=== PATIENT | male | born 1970 | race Caucasian/White ===

== ENCOUNTER 2017-04-25 17:22 | Emergency (ER) | payer OTHER ==
[2017-04-25 17:55] VITALS: TEMP 98.7
[2017-04-25] MEDS ORDERED: methylPREDNISolone SOD SUCCI 125 MG/2 ML VIAL IV STA (18:10)
[2017-04-25] MEDS ORDERED: IPRATROPIUM-ALBUTEROL 3 ML NEB INHALATION STA ×2 (18:10→19:42)
[2017-04-25] MEDS ORDERED: SODIUM CHLORIDE 0.9% 1,000 ML IV STA (18:10)
--- NOTE | 2017-04-25 18:14 | ED ---
SOB HPI - General Chief Complaint: Shortness of Breath Stated Complaint: DANY/Hx COPD Time Seen by Provider: 04/25/17 17:50 Source: patient, RN notes reviewed Mode of arrival: ambulatory Limitations: no limitations - History of Present Illness Initial Comments: This is a 46-year-old male with a history of COPD who is still smoking about one pack of cigarettes per day who states he had the onset over last several days of cough and shortness of breath. He states his cough is dry. He states he also is had fevers for last 2 days. Is also chest tightness no other complaints or any other symptoms this time. He does have some home inhalers which have not been working well. MD Complaint: shortness of breath, cough - Related Data Home Medications Medication Instructions Recorded Confirmed Albuterol Inhaler [Ventolin Hfa 1 - 2 puff INHALATION RT-Q6H PRN 08/30/15 Inhaler] Ibuprofen [Motrin] 800 mg PO Q8H PRN 04/25/17 04/25/17 Mometasone Furoate [Asmanex] 2 puff INHALATION RT-DAILY 04/25/17 04/25/17 Previous Rx's Medication Instructions Recorded Ipratropium/Albuterol Sulfate 2 puff INHALATION QID #1 inhaler 04/25/17 [Combivent Respimat Inhaler] Magnesium 200 mg PO DAILY #14 tablet 04/25/17 predniSONE 20 mg PO BID #10 tab 04/25/17 Allergies Allergy/AdvReac Type Severity Reaction Status Date / Time No Known Allergies Allergy Verified 04/25/17 18:05 Review of Systems ROS Statement: Those systems with pertinent positive or pertinent negative responses have been documented in the HPI. ROS Other: All systems not noted in ROS Statement are negative. Past Medical History Past Medical History: COPD Additional Past Medical History / Comment(s): emphysema History of Any Multi-Drug Resistant Organisms: None Reported Past Surgical History: No Surgical Hx Reported Past Psychological History: No Psychological Hx Reported Smoking Status: Current every day smoker Past Alcohol Use History: Occasional Past Drug Use History: None Reported General Exam - General Exam Comments Initial Comments: This is a well-developed well-nourished awake alert oriented 3 male Limitations: no limitations General appearance: alert, in no apparent distress Head exam: Present: atraumatic, normocephalic, normal inspection Eye exam: Present: normal appearance, PERRL, EOMI. Absent: scleral icterus, conjunctival injection, periorbital swelling ENT exam: Present: normal exam, mucous membranes moist Neck exam: Present: normal inspection. Absent: tenderness, meningismus, lymphadenopathy Respiratory exam: Present: wheezes, decreased breath sounds, other (Diffuse wheezes). Absent: respiratory distress, rales, rhonchi, stridor Cardiovascular Exam: Present: regular rate, normal rhythm, normal heart sounds. Absent: systolic murmur, diastolic murmur, rubs, gallop, clicks GI/Abdominal exam: Present: soft, normal bowel sounds. Absent: distended, tenderness, guarding, rebound, rigid Extremities exam: Present: normal inspection, full ROM, normal capillary refill. Absent: tenderness, pedal edema, joint swelling, calf tenderness Back exam: Present: normal inspection Neurological exam: Present: alert, oriented X3, CN II-XII intact Psychiatric exam: Present: normal affect, normal mood Skin exam: Present: warm, dry, intact, normal color. Absent: rash Course Vital Signs 04/25/17 04/25/17 04/25/17 17:53 18:28 18:38 Temperature 98.7 F Pulse Rate 65 66 66 Respiratory 18 Rate Blood Pressure 162/102 O2 Sat by Pulse 99 Oximetry 04/25/17 04/25/17 04/25/17 19:26 20:02 20:14 Temperature Pulse Rate 65 72 74 Respiratory 20 Rate Blood Pressure 148/92 O2 Sat by Pulse 97 Oximetry Medical Decision Making - Medical Decision Making The patient is feeling much improved this time he'll be discharged on appropriate medications including magnesium supplementation he is follow-up with her doctor return when necessary we did discuss smoking cessation as well as alcohol cessation. - Lab Data Result diagrams: 04/25/17 19:18 04/25/17 19:18 Lab Results 04/25/17 04/25/17 04/25/17 Range/Units 19:18 19:18 19:18 WBC 7.7 (3.8-10.6) k/uL RBC 5.29 (4.30-5.90) m/uL Hgb 16.5 (13.0-17.5) gm/dL Hct 50.7 (39.0-53.0) % MCV 95.9 (80.0-100.0) fL MCH 31.1 (25.0-35.0) pg MCHC 32.4 (31.0-37.0) g/dL RDW 14.5 (11.5-15.5) % Plt Count 199 (150-450) k/uL Neutrophils % 62 % Lymphocytes % 22 % Monocytes % 10 % Eosinophils % 2 % Basophils % 2 % Neutrophils # 4.8 (1.3-7.7) k/uL Lymphocytes # 1.7 (1.0-4.8) k/uL Monocytes # 0.7 (0-1.0) k/uL Eosinophils # 0.1 (0-0.7) k/uL Basophils # 0.1 (0-0.2) k/uL PT (9.0-12.0) sec INR (<1.2) APTT (22.0-30.0) sec Sodium 139 (137-145) mmol/L Potassium 3.9 (3.5-5.1) mmol/L Chloride 104 (98-107) mmol/L Carbon Dioxide 24 (22-30) mmol/L Anion Gap 11 mmol/L BUN 4 L (9-20) mg/dL Creatinine 0.67 (0.66-1.25) mg/dL Est GFR (MDRD) Af Amer >60 (>60 ml/min/1.73 sqM) Est GFR (MDRD) Non-Af >60 (>60 ml/min/1.73 sqM) Glucose 84 (74-99) mg/dL Calcium 9.0 (8.4-10.2) mg/dL Magnesium 1.7 (1.6-2.3) mg/dL Total Bilirubin 1.8 H (0.2-1.3) mg/dL AST 130 H (17-59) U/L ALT 192 H (21-72) U/L Alkaline Phosphatase 87 (38-126) U/L Total Creatine Kinase 103 (55-170) U/L CK-MB (CK-2) 1.2 (0.0-2.4) ng/mL CK-MB (CK-2) Rel Index 1.2 Troponin I <0.012 (0.000-0.034) ng/mL NT-Pro-B Natriuret Pep pg/mL Total Protein 7.5 (6.3-8.2) g/dL Albumin 4.1 (3.5-5.0) g/dL 04/25/17 04/25/17 Range/Units 19:18 19:18 WBC (3.8-10.6) k/uL RBC (4.30-5.90) m/uL Hgb (13.0-17.5) gm/dL Hct (39.0-53.0) % MCV (80.0-100.0) fL MCH (25.0-35.0) pg MCHC (31.0-37.0) g/dL RDW (11.5-15.5) % Plt Count (150-450) k/uL Neutrophils % % Lymphocytes % % Monocytes % % Eosinophils % % Basophils % % Neutrophils # (1.3-7.7) k/uL Lymphocytes # (1.0-4.8) k/uL Monocytes # (0-1.0) k/uL Eosinophils # (0-0.7) k/uL Basophils # (0-0.2) k/uL PT 11.3 (9.0-12.0) sec INR 1.1 (<1.2) APTT 25.7 (22.0-30.0) sec Sodium (137-145) mmol/L Potassium (3.5-5.1) mmol/L Chloride (98-107) mmol/L Carbon Dioxide (22-30) mmol/L Anion Gap mmol/L BUN (9-20) mg/dL Creatinine (0.66-1.25) mg/dL Est GFR (MDRD) Af Amer (>60 ml/min/1.73 sqM) Est GFR (MDRD) Non-Af (>60 ml/min/1.73 sqM) Glucose (74-99) mg/dL Calcium (8.4-10.2) mg/dL Magnesium (1.6-2.3) mg/dL Total Bilirubin (0.2-1.3) mg/dL AST (17-59) U/L ALT (21-72) U/L Alkaline Phosphatase (38-126) U/L Total Creatine Kinase (55-170) U/L CK-MB (CK-2) (0.0-2.4) ng/mL CK-MB (CK-2) Rel Index Troponin I (0.000-0.034) ng/mL NT-Pro-B Natriuret Pep 153 pg/mL Total Protein (6.3-8.2) g/dL Albumin (3.5-5.0) g/dL - Radiology Data Radiology results: report reviewed (I did review the imaging and reports no acute findings.), image reviewed Disposition Clinical Impression: Acute exacerbation of chronic obstructive airways disease Disposition: HOME SELF-CARE Condition: Good Instructions: COPD (Chronic Obstructive Pulmonary Disease) (ED) Prescriptions: Ipratropium/Albuterol Sulfate [Combivent Respimat Inhaler] 2 puff INHALATION QID #1 inhaler Magnesium 200 mg PO DAILY #14 tablet predniSONE 20 mg PO BID #10 tab Referrals: None,Stated [Primary Care Provider] - 1-2 days
[2017-04-25 19:27] VITALS: BP 148/92
[2017-04-25 19:32] LABS: Basophils # (A) 0.1 k/uL (0-0.2); Basophils % (A) 2 %; CH 32.5; Eosinophils # (A) 0.1 k/uL (0-0.7); Eosinophils % (A) 2 %; HCT 50.7 % (39.0-53.0); HDW 2.25; HGB 16.5 gm/dL (13.0-17.5); Luc # (Auto) 0.23; Luc % (Auto) 3; Lymphocytes # (A) 1.7 k/uL (1.0-4.8); Lymphocytes % (A) 22 %; MCH 31.1 pg (25.0-35.0); MCHC 32.4 g/dL (31.0-37.0); MCV 95.9 fL (80.0-100.0); Mean Platelet Volume 8.4; Monocytes # (A) 0.7 k/uL (0-1.0); Monocytes % (A) 10 %; Neutrophils # (A) 4.8 k/uL (1.3-7.7); Neutrophils % (A) 62 %; RBC 5.29 m/uL (4.30-5.90); RDW 14.5 % (11.5-15.5); WBC 7.7 k/uL (3.8-10.6); WBC (Perox) 7.59
[2017-04-25 19:40] LABS: ALT 192 U/L (21-72); AST 130 U/L (17-59); Alkaline Phosphatase 87 U/L (38-126); Anion Gap 11 mmol/L; Blood Urea Nitrogen 4 mg/dL (9-20); Carbon Dioxide 24 mmol/L (22-30); Chloride 104 mmol/L (98-107); Glucose 84 mg/dL (74-99); Magnesium 1.7 mg/dL (1.6-2.3); Non-African American GFR(MDRD) >60 (>60 ml/min/1.73 sqM); Potassium 3.9 mmol/L (3.5-5.1); Sodium 139 mmol/L (137-145); Total Bilirubin 1.8 mg/dL (0.2-1.3); Total Protein 7.5 g/dL (6.3-8.2)
--- NOTE | 2017-04-25 19:42 | XR ---
EXAMINATION TYPE: XR chest 2V DATE OF EXAM: 04/25/2017 COMPARISON: 08/30/2015 HISTORY: Short of breath TECHNIQUE: Frontal and lateral views of the chest are obtained. FINDINGS: Heart and mediastinum are normal. Lungs are clear. Diaphragm is normal. Bony thorax is int act. IMPRESSION: Normal chest. No change.
[2017-04-25 19:50] LABS: Creatine Kinase 103 U/L (55-170)
[2017-04-25] MEDS ORDERED: MAGNESIUM SULFATE-D5W PMX 1 GM in DEXTROSE/WATER 1 100ML.BAG IVPB ONE (19:58)
[2017-04-25 20:03] LABS: Creatine Kinase MB 1.2 ng/mL (0.0-2.4); Troponin I <0.012 ng/mL (0.000-0.034)
[2017-04-25 20:14] LABS: INR 1.1 (<1.2); Partial Thromboplastin Time 25.7 sec (22.0-30.0); Prothrombin Time 11.3 sec (9.0-12.0)
[2017-04-25 21:10] VITALS: PULSE 68; RESP 16
== END 2017-04-25 21:10 | disposition home or self-care (01) ==
LOC: EC 17:22
DX: J44.1 Chronic obstructive pulmonary disease with (acute) exacerbation (principal); F17.200 Nicotine dependence, unspecified, uncomplicated; Z79.51 Long term (current) use of inhaled steroids
CPT/HCPCS: 36415; 94640 ×2; 83880; 80053; 82550; 82553; 83735; 84484; 85025; 85610; 85730; 71020; 99285; 96374; 96361 ×2; J2930

== ENCOUNTER 2018-03-15 10:32 | Emergency (ER) | payer OTHER ==
[2018-03-15] MEDS ORDERED: IPRATROPIUM 0.5 MG/2.5 ML NEBU INHALATION STA (10:51)
[2018-03-15] MEDS ORDERED: DEXAMETHASONE 4 MG TAB PO STA (10:51)
[2018-03-15] MEDS ORDERED: ALBUTEROL NEBULIZED 2.5 MG/3 ML INHALATION STA (10:51)
[2018-03-15] MEDS ORDERED: AZITHROMYCIN 500 MG TAB PO STA (10:55)
--- NOTE | 2018-03-15 10:57 | ED ---
General Adult HPI - General Chief complaint: Shortness of Breath Stated complaint: clovis Source: patient Mode of arrival: ambulatory Limitations: no limitations - History of Present Illness Initial comments: Dictation was produced using [email or web address] dictation software. please excuse any grammatical, word or spelling errors. Chief Complaint: 47-year-old disheveled male past medical history of COPD presents with increasing dyspnea History of Present Illness: A 47-year-old male who was recently let out of [facility]. States that he doesn't have a steady place to live. Patient has a past medical history of COPD. Since being released from [facility] he has not had a refill on his COPD medications. Patient continues to smoke. Patient denies any pain complaints. Denies any fevers. Patient states his shortness of breath has been increasing and he has been coughing more. Denies any sputum production. Denies any lower extremity symptoms. No history of blood clots. The ROS documented in this emergency department record has been reviewed and confirmed by me. Those systems with pertinent positive or negative responses have been documented in the HPI. All other systems are other negative and/or noncontributory. - Related Data Previous Rx's Medication Instructions Recorded Albuterol Inhaler [Ventolin Hfa 1 - 2 puff INHALATION RT-Q6H PRN 07/14/17 Inhaler] #1 inhaler Mometasone Furoate [Asmanex] 2 puff INHALATION RT-DAILY #1 07/14/17 [email or web address] Albuterol Inhaler [Ventolin Hfa 1 - 2 puff INHALATION RT-Q6H PRN 03/15/18 Inhaler] #1 inhaler Azithromycin [Zithromax] 250 mg PO DAILY 4 Days #4 tab 03/15/18 Dexamethasone [Decadron] 12 mg PO ONCE #3 tablet 03/15/18 Allergies Allergy/AdvReac Type Severity Reaction Status Date / Time No Known Allergies Allergy Verified 03/15/18 10:39 Review of Systems ROS Statement: Those systems with pertinent positive or pertinent negative responses have been documented in the HPI. ROS Other: All systems not noted in ROS Statement are negative. Past Medical History Past Medical History: COPD Additional Past Medical History / Comment(s): emphysema History of Any Multi-Drug Resistant Organisms: None Reported Past Surgical History: No Surgical Hx Reported Past Psychological History: No Psychological Hx Reported Smoking Status: Current every day smoker Past Alcohol Use History: Daily Past Drug Use History: None Reported General Exam - General Exam Comments Initial Comments: PHYSICAL EXAM: General Impression: Alert and oriented x3, not in acute distress HEENT: Normocephalic atraumatic, extra-ocular movements intact, pupils equal and reactive to light bilaterally, mucous membranes moist. Cardiovascular: Heart regular rate and rhythm, S1&S2 audible, no murmurs, rubs or gallops Chest: Diffuse bilateral end expiratory wheezing Abdomen: Bowel sounds present, abdomen soft, non-tender, non-distended, no organomegaly Musculoskeletal: Pulses present and equal in all extremities, no peripheral edema Motor: Power 5/5 bilaterally, no focal deficits noted Neurological: CN II-XII grossly intact, no focal motor or sensory deficits noted Skin: Intact with no visualized rashes Psych: Normal affect and mood Limitations: no limitations Course Vital Signs 03/15/18 03/15/18 03/15/18 10:36 11:17 11:46 Temperature 97.9 F Pulse Rate 102 H 92 106 H Respiratory 20 Rate Blood Pressure 134/80 O2 Sat by Pulse 94 L Oximetry Medical Decision Making - Medical Decision Making ED course: 47-year-old male with clinical presentation consistent with COPD exacerbation. All signs upon arrival shows heart rate of 102, respiratory signs within acceptable limits. Patient does not appear to be in severe respiratory distress. Patient given 500 mg of by mouth Zithromax and, by mouth Decadron and breathing treatment. Patient symptoms are mild. Patient reevaluated with improvement of symptoms. Do not believe patient's symptoms are severe enough to warrant inpatient admission or inpatient observation. Patient prescription for repeat dose of Decadron to be taken in 48-72 hours, Ventolin inhaler and Zithromax to complete 5 day course. He is given follow-up with primary care physician. Patient given return precautions should his difficulty breathing worsen or should he develop fever, chest pain to return to the emergency department for further care. Disposition Clinical Impression: COPD (chronic obstructive pulmonary disease) Disposition: HOME SELF-CARE Condition: Good Instructions: COPD (Chronic Obstructive Pulmonary Disease) (ED) Prescriptions: Albuterol Inhaler [Ventolin Hfa Inhaler] 1 - 2 puff INHALATION RT-Q6H PRN #1 inhaler PRN Reason: Shortness Of Breath Azithromycin [Zithromax] 250 mg PO DAILY 4 Days #4 tab Dexamethasone [Decadron] 12 mg PO ONCE #3 tablet Is patient prescribed a controlled substance at d/c from ED?: No Referrals: None,Stated [Primary Care Provider] - 1-2 days Zackery Campos MD [REFERRING] - 1-2 days Time of Disposition: 11:32
[2018-03-15 12:16] VITALS: BP 136/79; PULSE 104; RESP 18; TEMP 97.7
== END 2018-03-15 12:16 | disposition home or self-care (01) ==
LOC: EC 10:32
DX: J44.9 Chronic obstructive pulmonary disease, unspecified (principal); F17.200 Nicotine dependence, unspecified, uncomplicated
CPT/HCPCS: 94640; 99284; J8540

== ENCOUNTER 2018-03-26 11:49 | Emergency (ER) | payer OTHER ==
[2018-03-26 12:01] VITALS: BP 137/75; RESP 18; TEMP 98.3
[2018-03-26] MEDS ORDERED: IPRATROPIUM-ALBUTEROL 3 ML NEB INHALATION STA (12:04)
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
[2018-03-26 12:37] VITALS: PULSE 96
--- NOTE | 2018-03-26 12:39 | XR ---
EXAMINATION TYPE: XR chest 2V DATE OF EXAM: 03/26/2018 COMPARISON: Prior chest 04/25/2017 HISTORY: Cough and shortness of breath TECHNIQUE: Frontal and lateral views of the chest are obtained. FINDINGS: There is no focal air space opacity, pleural effusion, or pneumothorax seen. The cardiac silhouette size is within normal limits. The osseous structures are intact. There are prominent kayla g volumes. Blunting the costophrenic angles likely due to hyperinflation. There is bronchial wall thi ckening. IMPRESSION: Correlate for bronchitis, reactive airways disease. Follow-up as indicated.
[2018-03-26] MEDS ORDERED: predniSONE 20 MG TAB PO STA (12:44)
== END 2018-03-26 12:57 | disposition home or self-care (01) ==
LOC: EC 11:49
DX: J44.9 Chronic obstructive pulmonary disease, unspecified (principal); F17.200 Nicotine dependence, unspecified, uncomplicated; Z79.51 Long term (current) use of inhaled steroids
CPT/HCPCS: 94640; 71046; 99285; 99406; J7512

== ENCOUNTER 2018-04-02 21:19 | Inpatient (IN) | payer OTHER ==
[2018-04-02] MEDS ORDERED: AZITHROMYCIN 500 MG in SODIUM CHLORIDE 0.9% 250 ML IVPB STA (21:29)
[2018-04-02] MEDS ORDERED: SODIUM CHLORIDE 0.9% 1,000 ML IV STA (21:29)
[2018-04-02] MEDS ORDERED: IPRATROPIUM 0.5 MG/2.5 ML NEBU INHALATION STA (21:29)
[2018-04-02] MEDS ORDERED: methylPREDNISolone SOD SUCCI 125 MG/2 ML VIAL IV STA (21:29)
[2018-04-02] MEDS ORDERED: SODIUM CHLORIDE 0.9% 500 ML IV STA (21:29)
[2018-04-02] MEDS ORDERED: ALBUTEROL NEBULIZED 2.5 MG/3 ML INHALATION STA (21:29)
[2018-04-02 22:09] LABS: Basophils % (A) 0 %; Eosinophils # (A) 0.1 k/uL (0-0.7); Eosinophils % (A) 1 %; HCT 43.1 % (39.0-53.0); HGB 14.1 gm/dL (13.0-17.5); Lymphocytes # (A) 1.6 k/uL (1.0-4.8); Lymphocytes % (A) 13 %; MCH 30.7 pg (25.0-35.0); MCHC 32.7 g/dL (31.0-37.0); MCV 93.9 fL (80.0-100.0); Mean Platelet Volume 7.8; Monocytes # (A) 0.9 k/uL (0-1.0); Monocytes % (A) 7 %; Neutrophils # (A) 9.6 k/uL (1.3-7.7); Neutrophils % (A) 77 %; Platelet Count 256 k/uL (150-450); RBC 4.59 m/uL (4.30-5.90); WBC 12.5 k/uL (3.8-10.6)
[2018-04-02 22:13] LABS: Partial Thromboplastin Time 24.9 sec (22.0-30.0); Prothrombin Time 9.6 sec (9.0-12.0)
[2018-04-02 22:15] LABS: ALT 78 U/L (21-72); AST 65 U/L (17-59); Albumin 3.7 g/dL (3.5-5.0); Alkaline Phosphatase 92 U/L (38-126); Anion Gap 11 mmol/L; Blood Urea Nitrogen 10 mg/dL (9-20); Carbon Dioxide 28 mmol/L (22-30); Chloride 96 mmol/L (98-107); Glucose 72 mg/dL (74-99); Magnesium 2.1 mg/dL (1.6-2.3); Potassium 4.1 mmol/L (3.5-5.1); Sodium 135 mmol/L (137-145); Total Bilirubin 1.4 mg/dL (0.2-1.3)
[2018-04-02 22:17] LABS: Creatine Kinase 80 U/L (55-170)
[2018-04-02 22:30] LABS: Troponin I <0.012 ng/mL (0.000-0.034)
[2018-04-02 22:34] LABS: Creatine Kinase MB 2.9 ng/mL (0.0-2.4)
--- NOTE | 2018-04-02 22:38 | ED ---
General Adult HPI - General Chief complaint: Shortness of Breath Stated complaint: SOB/congestion Time Seen by Provider: 04/02/18 21:28 Source: patient, RN notes reviewed, old records reviewed Mode of arrival: wheelchair Limitations: no limitations - History of Present Illness Initial comments: This is a 47-year-old male the ER for evaluation today. This male presents for evaluation regards to shortness of breath significant history of smoking. Asthma as a child. Patient has no diagnosis formally of COPD is continued breathing treatments, inhaler at home with no improvement. Patient was seen in the ER but is progressively worsened since. Patient not currently on antibiotics. No known fevers no chest pain, does complain of some back pain back pain left-sided his back - Related Data Home Medications Medication Instructions Recorded Confirmed Albuterol Sulfate [Proair Hfa] 2 puff INHALATION RT-Q4H PRN 04/02/18 04/02/18 Allergies Allergy/AdvReac Type Severity Reaction Status Date / Time No Known Allergies Allergy Verified 04/02/18 21:59 Review of Systems ROS Statement: Those systems with pertinent positive or pertinent negative responses have been documented in the HPI. ROS Other: All systems not noted in ROS Statement are negative. Past Medical History Past Medical History: COPD Additional Past Medical History / Comment(s): emphysema History of Any Multi-Drug Resistant Organisms: None Reported Past Surgical History: No Surgical Hx Reported Past Psychological History: No Psychological Hx Reported Smoking Status: Current every day smoker Past Alcohol Use History: Abuse Past Drug Use History: None Reported General Exam Limitations: no limitations General appearance: alert, in no apparent distress Head exam: Present: atraumatic, normocephalic, normal inspection Eye exam: Present: normal appearance, PERRL, EOMI. Absent: scleral icterus, conjunctival injection, periorbital swelling ENT exam: Present: normal exam, mucous membranes moist Neck exam: Present: normal inspection. Absent: tenderness, meningismus, lymphadenopathy Respiratory exam: Present: normal lung sounds bilaterally, wheezes. Absent: respiratory distress, rales, rhonchi, stridor Cardiovascular Exam: Present: normal rhythm, tachycardia, normal heart sounds. Absent: systolic murmur, diastolic murmur, rubs, gallop, clicks GI/Abdominal exam: Present: soft, normal bowel sounds. Absent: distended, tenderness, guarding, rebound, rigid Extremities exam: Present: normal inspection, full ROM, normal capillary refill. Absent: tenderness, pedal edema, joint swelling, calf tenderness Back exam: Present: normal inspection Neurological exam: Present: alert, oriented X3, CN II-XII intact Psychiatric exam: Present: normal affect, normal mood Skin exam: Present: warm, dry, intact, normal color. Absent: rash Course Vital Signs 04/02/18 04/02/18 04/02/18 21:21 21:52 22:15 Temperature 98.5 F Pulse Rate 114 H 104 H Respiratory 20 20 Rate Blood Pressure 165/76 O2 Sat by Pulse 94 L Oximetry 04/02/18 22:30 Temperature Pulse Rate 110 H Respiratory Rate Blood Pressure O2 Sat by Pulse Oximetry - Reevaluation(s) Reevaluation #1: 04/02/18 23:40 Patient isn't not improving despite outpatient therapy. Reevaluation #2: 04/02/18 23:40 Patient has minimal improvement here in the ER despite prolonged breathing treatment EKG Findings - EKG Comments: EKG Findings:: EKG shows sinus rhythm rate of 97, [place] 1:30, QRS 74, QTC 452 Medical Decision Making - Medical Decision Making 47 male the ER for evaluation of cough congestion significant shortness of breath hypoxia. Patient be admitted for pulmonary evaluation continue breathing treatments and steroids - Lab Data Result diagrams: 04/02/18 21:50 04/02/18 21:50 Lab Results 04/02/18 04/02/18 04/02/18 Range/Units 21:50 21:50 21:50 WBC 12.5 H (3.8-10.6) k/uL RBC 4.59 (4.30-5.90) m/uL Hgb 14.1 (13.0-17.5) gm/dL Hct 43.1 (39.0-53.0) % MCV 93.9 (80.0-100.0) fL MCH 30.7 (25.0-35.0) pg MCHC 32.7 (31.0-37.0) g/dL RDW 13.0 (11.5-15.5) % Plt Count 256 (150-450) k/uL Neutrophils % 77 % Lymphocytes % 13 % Monocytes % 7 % Eosinophils % 1 % Basophils % 0 % Neutrophils # 9.6 H (1.3-7.7) k/uL Lymphocytes # 1.6 (1.0-4.8) k/uL Monocytes # 0.9 (0-1.0) k/uL Eosinophils # 0.1 (0-0.7) k/uL Basophils # 0.0 (0-0.2) k/uL PT (9.0-12.0) sec INR (<1.2) APTT (22.0-30.0) sec Sodium 135 L (137-145) mmol/L Potassium 4.1 (3.5-5.1) mmol/L Chloride 96 L (98-107) mmol/L Carbon Dioxide 28 (22-30) mmol/L Anion Gap 11 mmol/L BUN 10 (9-20) mg/dL Creatinine 0.54 L (0.66-1.25) mg/dL Est GFR (CKD-EPI)AfAm >90 (>60 ml/min/1.73 sqM) Est GFR (CKD-EPI)NonAf >90 (>60 ml/min/1.73 sqM) Glucose 72 L (74-99) mg/dL Calcium 9.0 (8.4-10.2) mg/dL Magnesium 2.1 (1.6-2.3) mg/dL Total Bilirubin 1.4 H (0.2-1.3) mg/dL AST 65 H (17-59) U/L ALT 78 H (21-72) U/L Alkaline Phosphatase 92 (38-126) U/L Total Creatine Kinase 80 (55-170) U/L CK-MB (CK-2) 2.9 H* (0.0-2.4) ng/mL CK-MB (CK-2) Rel Index 3.6 Troponin I <0.012 (0.000-0.034) ng/mL Total Protein 7.0 (6.3-8.2) g/dL Albumin 3.7 (3.5-5.0) g/dL 04/02/18 Range/Units 21:50 WBC (3.8-10.6) k/uL RBC (4.30-5.90) m/uL Hgb (13.0-17.5) gm/dL Hct (39.0-53.0) % MCV (80.0-100.0) fL MCH (25.0-35.0) pg MCHC (31.0-37.0) g/dL RDW (11.5-15.5) % Plt Count (150-450) k/uL Neutrophils % % Lymphocytes % % Monocytes % % Eosinophils % % Basophils % % Neutrophils # (1.3-7.7) k/uL Lymphocytes # (1.0-4.8) k/uL Monocytes # (0-1.0) k/uL Eosinophils # (0-0.7) k/uL Basophils # (0-0.2) k/uL PT 9.6 (9.0-12.0) sec INR 1.0 (<1.2) APTT 24.9 (22.0-30.0) sec Sodium (137-145) mmol/L Potassium (3.5-5.1) mmol/L Chloride (98-107) mmol/L Carbon Dioxide (22-30) mmol/L Anion Gap mmol/L BUN (9-20) mg/dL Creatinine (0.66-1.25) mg/dL Est GFR (CKD-EPI)AfAm (>60 ml/min/1.73 sqM) Est GFR (CKD-EPI)NonAf (>60 ml/min/1.73 sqM) Glucose (74-99) mg/dL Calcium (8.4-10.2) mg/dL Magnesium (1.6-2.3) mg/dL Total Bilirubin (0.2-1.3) mg/dL AST (17-59) U/L ALT (21-72) U/L Alkaline Phosphatase (38-126) U/L Total Creatine Kinase (55-170) U/L CK-MB (CK-2) (0.0-2.4) ng/mL CK-MB (CK-2) Rel Index Troponin I (0.000-0.034) ng/mL Total Protein (6.3-8.2) g/dL Albumin (3.5-5.0) g/dL - Radiology Data Radiology results: report reviewed (CTA chest is negative for acute disease negative for PE), image reviewed Disposition Clinical Impression: COPD (chronic obstructive pulmonary disease), Acute exacerbation of chronic obstructive airways disease Disposition: ADMITTED IP TO THIS HOSP Condition: Good Is patient prescribed a controlled substance at d/c from ED?: No Referrals: Zackery Campos MD [Primary Care Provider] - 1-2 days
--- NOTE | 2018-04-02 23:16 | CT ---
EXAMINATION TYPE: CT angio chest DATE OF EXAM: 04/02/2018 10:52 PM COMPARISON: HISTORY: Shortness of breath. CT DLP: 258.8 mGycm Automated exposure control for dose reduction was used. CONTRAST: CTA scan of the thorax is performed with IV Contrast, patient injected with 70 mL of Isovue 370, pulm onary embolism protocol. There are 3-D post processed images.. FINDINGS: There is patchy bilateral reticular and nodular pulmonary infiltrate. This involves both upper and lo wer lobes. There is no pleural effusion. Heart size is normal. Thoracic aorta appears normal. There is no evidence of aneurysm or dissection. I see no filling defec ts in the pulmonary arteries. There are a few bronchial and paratracheal lymph nodes that measure up to 1 cm. There is no pericardial effusion. There is spurring in the thoracic spine. I see no bony destructive process. Impression No evidence of pulmonary embolism. Extensive bilateral reticular nodular pulmonary infiltrates. Nodul es measure up to 2 cm. Mild bronchial adenopathy. This probably relates to inflammatory disease.
[2018-04-03] MEDS: SODIUM CHLORIDE 0.9% 1,000 ML IV SCH ×2 (00:23→10:47)
[2018-04-03] MEDS: methylPREDNISolone SOD SUCCI 125 MG/2 ML VIAL IV SCH ×3 (00:25→13:06)
[2018-04-03] MEDS: IPRATROPIUM-ALBUTEROL 3 ML NEB INHALATION SCH ×4 (07:02→20:05)
[2018-04-03 07:56] LABS: Glucose,Whole Blood 162 mg/dL (75-99)
[2018-04-03] MEDS: INSULIN ASPART 100 UNIT/ML 1 ML 10 ML VIAL SQ SCH ×4 (08:05→21:04)
[2018-04-03] MEDS: ENOXAPARIN 40 MG/0.4 ML SYRINGE SQ SCH (10:02)
[2018-04-03] MEDS: NICOTINE 21MG/24HR PATCH TRANSDERM SCH (10:02)
[2018-04-03 11:40] LABS: Glucose,Whole Blood 204 mg/dL (75-99)
--- NOTE | 2018-04-03 14:06 | P.HPIM ---
History of Present Illness 47-year-old gentleman with known history of smoking came in with complains of shortness of breath cough with greenish sputum production. Patient was started on my Solu-Medrol and was given a dose of azithromycin. Patient does not have any lobar infiltrate does have some diffuse nonspecific infiltrate without any air bronchogram has some nodules to about 2 cm because of which I'm consulted thing that pulmonary. Patient steroids will be switched to oral continued breathing treatments patient has some improvement in his shortness of breath patient doesn't use any oxygen at home. Review of Systems PHYSICAL EXAMINATION: GENERAL: The patient is alert and oriented x3, not in any acute distress. Well developed, well nourished. HEENT: Pupils are round and equally reacting to light. EOMI. No scleral icterus. No conjunctival pallor. Normocephalic, atraumatic. No pharyngeal erythema. No thyromegaly. CARDIOVASCULAR: S1 and S2 present. No murmurs, rubs, or gallops. PULMONARY: Expiratory wheezing rhonchus breath sounds ABDOMEN: Soft, nontender, nondistended, normoactive bowel sounds. No palpable organomegaly. MUSCULOSKELETAL: No joint swelling or deformity. EXTREMITIES: No cyanosis, clubbing, or pedal edema. NEUROLOGICAL: Gross neurological examination did not reveal any focal deficits. SKIN: No rashes. Past Medical History Past Medical History: COPD Additional Past Medical History / Comment(s): emphysema History of Any Multi-Drug Resistant Organisms: None Reported Past Surgical History: No Surgical Hx Reported Past Psychological History: No Psychological Hx Reported Smoking Status: Current every day smoker Past Alcohol Use History: Abuse Past Drug Use History: None Reported Medications and Allergies Home Medications Medication Instructions Recorded Confirmed Type Albuterol Sulfate [Proair Hfa] 2 puff INHALATION RT-Q4H PRN 04/02/18 04/02/18 History Allergies Allergy/AdvReac Type Severity Reaction Status Date / Time No Known Allergies Allergy Verified 04/02/18 21:59 Physical Exam Vitals: Vital Signs Temp Pulse Pulse Resp BP BP Pulse Ox 04/03/18 10:52 60 04/03/18 10:39 60 04/03/18 07:13 58 L 04/03/18 07:02 55 L 98 04/03/18 06:41 98.1 F 97 18 141/83 95 04/03/18 00:01 95 18 145/80 94 L 04/02/18 22:30 110 H 04/02/18 22:15 20 04/02/18 21:52 104 H 04/02/18 21:21 98.5 F 114 H 20 165/76 94 L Intake and Output 04/02/18 04/03/18 04/03/18 22:59 06:59 14:59 Other: # Voids 2 Weight 81.647 kg 81.647 kg Results CBC & Chem 7: 04/02/18 21:50 04/02/18 21:50 Labs: Abnormal Lab Results - Last 24 Hours (Table) 04/02/18 04/02/18 04/02/18 Range/Units 21:50 21:50 21:50 WBC 12.5 H (3.8-10.6) k/uL Neutrophils # 9.6 H (1.3-7.7) k/uL Sodium 135 L (137-145) mmol/L Chloride 96 L (98-107) mmol/L Creatinine 0.54 L (0.66-1.25) mg/dL Glucose 72 L (74-99) mg/dL POC Glucose (mg/dL) (75-99) mg/dL Total Bilirubin 1.4 H (0.2-1.3) mg/dL AST 65 H (17-59) U/L ALT 78 H (21-72) U/L CK-MB (CK-2) 2.9 H* (0.0-2.4) ng/mL 04/03/18 04/03/18 Range/Units 07:41 11:35 WBC (3.8-10.6) k/uL Neutrophils # (1.3-7.7) k/uL Sodium (137-145) mmol/L Chloride (98-107) mmol/L Creatinine (0.66-1.25) mg/dL Glucose (74-99) mg/dL POC Glucose (mg/dL) 162 H 204 H (75-99) mg/dL Total Bilirubin (0.2-1.3) mg/dL AST (17-59) U/L ALT (21-72) U/L CK-MB (CK-2) (0.0-2.4) ng/mL Thrombosis Risk Factor Assmnt - Choose All That Apply Any of the Below Risk Factors Present?: Yes Each Factor Represents 1 point: Age 41-60 years, Obesity (BMI >25) Thrombosis Risk Factor Assessment Total Risk Factor Score: 2 Thrombosis Risk Factor Assessment Level: Low Risk Assessment and Plan Plan: -COPD with tracheobronchitis patient does have COPD exacerbation patient was steroids will be switched to oral infiltrate continue with inhalational steroids inhalational treatments. -2 cm pulmonary nodule was smoking history pulmonary will be consulted, patient will need outpatient follow-up with repeat CAT scan. -Continued nicotine use: Counseling was provided
[2018-04-03 17:36] LABS: Glucose,Whole Blood 134 mg/dL (75-99)
[2018-04-03] MEDS: SYMBICORT 160-4.5 MCG INHALER INHALATION SCH ×2 (18:38→20:05)
[2018-04-03 19:19] LABS: Hemoglobin A1C 5.8 % (4.0-6.0)
[2018-04-03 20:54] LABS: Glucose,Whole Blood 166 mg/dL (75-99)
[2018-04-03] MEDS ORDERED: AZITHROMYCIN 500 MG TAB PO SCH (21:00)
[2018-04-04] MEDS: IPRATROPIUM-ALBUTEROL 3 ML NEB INHALATION SCH ×4 (07:01→19:25)
[2018-04-04] MEDS: SYMBICORT 160-4.5 MCG INHALER INHALATION SCH (07:01)
[2018-04-04 07:42] LABS: Glucose,Whole Blood 104 mg/dL (75-99)
[2018-04-04] MEDS: INSULIN ASPART 100 UNIT/ML 1 ML 10 ML VIAL SQ SCH ×4 (07:50→21:29)
[2018-04-04] MEDS: NICOTINE 21MG/24HR PATCH TRANSDERM SCH (08:58)
[2018-04-04] MEDS: ENOXAPARIN 40 MG/0.4 ML SYRINGE SQ SCH (08:59)
[2018-04-04] MEDS ORDERED: predniSONE 20 MG TAB PO SCH (09:00)
[2018-04-04 12:11] LABS: Glucose,Whole Blood 122 mg/dL (75-99)
[2018-04-04] MEDS ORDERED: cefTRIAXone IN SWFI 1,000 MG/10 ML SYRINGE IVP SCH (13:30)
[2018-04-04] MEDS: methylPREDNISolone SOD SUCCI 125 MG/2 ML VIAL IV SCH ×2 (13:45→17:53)
[2018-04-04] MEDS: PIPERACILLIN-TAZOBACTAM 3.375 GM in DEXTROSE/WATER 1 50ML.BAG IVPB SCH (16:57)
--- NOTE | 2018-04-04 17:17 | P.CNPUL ---
History of Present Illness Consult date: 04/04/18 Requesting physician: Deandra Ellington Reason for consult: dyspnea, cough, COPD, pneumonia, abnormal CXR/CT, other Chief complaint: Shortness of breath, weakness, wheezing, chest congestion History of present illness: Jamal is a 47-year-old white male patient of Dr. Campos, who presented to the emergency department on 04/02/2018 at 2200 for evaluation of progressive weakness, shortness of breath, chest congestion, wheezing. Patient states about a week ago he was seen in the emergency department for complaints of cough , shortness of breath, fever, chills. His cough was productive with green sputum. Patient is a current smoker, smokes 1 to 2 packs a day for over 35 years. Patient states he was given a prescription of antibiotics and the rescue inhaler, however after reviewing ER records, it is evident the patient was given oral steroids and Pro-Air inhaler, was referred to see Dr. Christensen and Dr. Nunes in the office, and discharged home. Patient is currently homeless, he states he is been sleeping in the [facility]. He was recently incarcerated for credit card fraud, and released sometime in January. Has a history of other incarcerations for drug charges and peripheral violations. He states he had a PPD test in skilled nursing, which was negative, and he was checked for HIV there and the test was reportedly negative. He does admit to daily EtOH use, he drinks 4-5 24 ounce cans of beer daily, denies any other drug use, no marijuana, no cocaine, no injectable drugs. Does admit to previous use of meth. Patient has never seen a business process specialist in the past. He did have previous episodes of pneumonia, for which she was hospitalized, and was supposed to be seen by a placement assistant, however she never followed up related to his lack of insurance. No other significant medical history, no history of hypertension, no diabetes, no NH. Patient states he does have history of COPD, not on any medications for it. He denies any hemoptysis. He states after he took his prescriptions patient did not get any better, a progressively weaker and short of breath. His initial chest x-ray from 03/26/2018 from his first visit to the ER showed no focal airspace opacity , pleural effusion or pneumothorax. Prominent lung volumes were seen, blunting of the costophrenic angles likely due to hyperinflation, and bronchial wall thickening. CT angios was completed on his second trip to the ER on 04/02/2018 and showed no evidence of pulmonary embolism, extensive bilateral reticular nodular pulmonary infiltrates, and nodules measuring up to 2 cm, mild bronchial adenopathy. Blood work showed WBC of 12.5, hemoglobin of 14.1, INR of 1.0, sodium of 135, chloride is 96, BUN of 10, creatinine 0.54. Plasma lactic acid was 1.5, total bili was 1.4, AST was 65, ALT was 78, CK-MB was 2.9, troponin was negative 1. EKG showed normal sinus rhythm, minimal voltage criteria for LVH. Patient was started on empiric antibiotics in the form of Zithromax, bronchodilators, and admitted for further management. We are asked to see the patient in consultation for abnormal findings seen on the CT angios, most likely related to diffuse bilateral nodular infiltrates related to pneumonia. Possibility of endocarditis has to be ruled out, an echocardiogram has been ordered. Review of Systems All systems: negative Constitutional: Denies chills, Denies fever Eyes: denies blurred vision, denies pain Ears, nose, mouth and throat: Denies headache, Denies sore throat Cardiovascular: Denies chest pain, Denies shortness of breath Respiratory: Reports congestion, Reports cough with sputum, Reports dyspnea, Reports respiratory infections, Reports wheezing, Denies cough Gastrointestinal: Denies abdominal pain, Denies diarrhea, Denies nausea, Denies vomiting Musculoskeletal: Denies myalgias Integumentary: Denies pruritus, Denies rash Neurological: Denies numbness, Denies weakness Psychiatric: Denies anxiety, Denies depression Endocrine: Denies fatigue, Denies weight change Past Medical History Past Medical History: COPD Additional Past Medical History / Comment(s): emphysema History of Any Multi-Drug Resistant Organisms: None Reported Past Surgical History: No Surgical Hx Reported Past Psychological History: No Psychological Hx Reported Smoking Status: Current every day smoker Past Alcohol Use History: Abuse Past Drug Use History: None Reported Medications and Allergies Home Medications Medication Instructions Recorded Confirmed Type Albuterol Sulfate [Proair Hfa] 2 puff INHALATION RT-Q4H PRN 04/02/18 04/02/18 History Allergies Allergy/AdvReac Type Severity Reaction Status Date / Time No Known Allergies Allergy Verified 04/02/18 21:59 Physical Exam Vitals: Vital Signs Temp Pulse Pulse Resp BP Pulse Ox 04/04/18 15:43 86 04/04/18 15:34 84 04/04/18 15:00 98.0 F 76 18 137/95 95 04/04/18 11:13 80 04/04/18 11:04 80 04/04/18 07:13 84 04/04/18 07:02 77 95 04/04/18 06:49 98.0 F 83 18 132/90 98 04/03/18 23:00 97.6 F 79 16 124/89 98 04/03/18 20:15 82 04/03/18 20:06 78 Intake and Output 04/04/18 04/04/18 04/04/18 06:59 14:59 22:59 Intake Total 320 Output Total 350 Balance -30 Intake: Oral 320 Output: Urine 350 Other: Voiding Method Toilet # Voids 3 3 # Bowel Movements 0 1 GENERAL EXAM: Alert, pleasant, 47-year-old white male, appears much older than stated age comfortable in no apparent distress. HEAD: Normocephalic/atraumatic. EYES: Normal reaction of pupils, equal size. Conjunctiva pink, sclera white. NOSE: Clear with pink turbinates. THROAT: No erythema or exudates. NECK: No masses, no JVD, no thyroid enlargement, no adenopathy. CHEST: No chest wall deformity. Symmetrical expansion. LUNGS: Diffuse wheezes bilaterally, scattered rhonchi CVS: Regular rate and rhythm, normal S1 and S2, no gallops, no murmurs, no rubs ABDOMEN: Soft, nontender. No hepatosplenomegaly, normal bowel sounds, no guarding or rigidity. EXTREMITIES: No clubbing, no edema, no cyanosis, 2+ pulses and upper and lower extremities. MUSCULOSKELETAL: Muscle strength and tone normal. SPINE: No scoliosis or deformity SKIN: No rashes CENTRAL NERVOUS SYSTEM: Alert and oriented -3. No focal deficits, tone is normal in all 4 extremities. PSYCHIATRIC: Alert and oriented -3. Appropriate affect. Intact judgment and insight. Results - Laboratory Findings CBC and BMP: 04/02/18 21:50 04/02/18 21:50 PT/INR, D-dimer PT 9.6 sec (9.0-12.0) 04/02/18 21:50 INR 1.0 (<1.2) 04/02/18 21:50 Abnormal lab findings: Abnormal Labs 04/02/18 04/02/18 04/02/18 21:50 21:50 21:50 WBC 12.5 H Neutrophils # 9.6 H Sodium 135 L Chloride 96 L Creatinine 0.54 L Glucose 72 L POC Glucose (mg/dL) Total Bilirubin 1.4 H AST 65 H ALT 78 H CK-MB (CK-2) 2.9 H* 04/03/18 04/03/18 04/03/18 07:41 11:35 17:31 WBC Neutrophils # Sodium Chloride Creatinine Glucose POC Glucose (mg/dL) 162 H 204 H 134 H Total Bilirubin AST ALT CK-MB (CK-2) 04/03/18 04/04/18 04/04/18 20:50 07:18 12:09 WBC Neutrophils # Sodium Chloride Creatinine Glucose POC Glucose (mg/dL) 166 H 104 H 122 H Total Bilirubin AST ALT CK-MB (CK-2) - Diagnostic Findings Chest x-ray: report reviewed, image reviewed CT scan - chest: report reviewed, image reviewed Additional studies: EKG reviewed Assessment and Plan Plan: Assessment: #1. Dyspnea, chest congestion, fever, weakness. CT angios positive for diffuse nodular infiltrates in bilateral lungs, likely related to bilateral pneumonia. Possibility of endocarditis has to be ruled out, echocardiogram has been ordered. There is a possibility of gram-negative pneumonia versus aspiration pneumonia, in this patient with history of heavy alcohol use #2. Acute exacerbation of chronic obstructive pulmonary disease related to the above, the severity of which is unknown at this time #3. Chronic and ongoing nicotine dependence, patient smokes one to 2 packs a day for over 35 years #4. Previous episodes of pneumonia #5. Recent history of incarceration, released sometime in January 2018. According to the patient, as per the routine procedure PPD test and HIV tests were completed in skilled nursing, and were both negative #6. EtOH abuse, patient drinks 4-5 ounce cans of beer daily #7. Homelessness #8. Mild elevation of liver enzymes Plan: We will obtain an echocardiogram to rule out endocarditis. We will switch antibiotic coverage from Zithromax and Rocephin to Zosyn and Levaquin for possibility of aspiration pneumonia, or gram-negative pneumonia. Monitor for signs of delirium tremens. We'll switch oral prednisone to IV Solu-Medrol 60 mg every 6, we'll place the patient on Pulmicort and Perforomist, continue DuoNeb [id number]. Nicotine patch. Obtain Legionella urinary antigen, completed drug screen. Consult social work I performed a history & physical examination of the patient and discussed their management with my nurse practitioner, Larissa Cortez. I reviewed the nurse practitioner's note and agree with the documented findings and plan of care. Lung sounds are positive for diffuse wheezes throughout the lung murry. The findings and the impression was discussed with the patient. I attest to the documentation by the nurse practitioner. Time with Patient: Greater than 30
[2018-04-04 17:27] LABS: Glucose,Whole Blood 134 mg/dL (75-99)
[2018-04-04] MEDS: BUDESONIDE 1 MG/2 ML NEBU INHALATION SCH (19:25)
[2018-04-04] MEDS: FORMOTEROL FUMARATE 20 MCG/2 ML NEBU INHALATION SCH (19:25)
[2018-04-04] MEDS: LEVOFLOXACIN 750MG-D5W PMX 750 MG in DEXTROSE/WATER 1 150ML.BAG IVPB SCH (20:42)
[2018-04-04 21:21] LABS: Glucose,Whole Blood 261 mg/dL (75-99)
[2018-04-04 23:10] LABS: Glucose,Whole Blood 155 mg/dL (75-99)
[2018-04-05] MEDS: methylPREDNISolone SOD SUCCI 125 MG/2 ML VIAL IV SCH ×4 (00:03→18:26)
[2018-04-05] MEDS: PIPERACILLIN-TAZOBACTAM 3.375 GM in DEXTROSE/WATER 1 50ML.BAG IVPB SCH ×3 (00:03→15:40)
[2018-04-05 02:54] LABS: Urine Alcohol Negative (Negative); Urine Barbiturate Negative (Negative); Urine Cocaine Negative (Negative); Urine Methadone Negative (Negative); Urine Opiates Negative (Negative); Urine Phencyclidine Negative (Negative)
[2018-04-05 07:19] LABS: Glucose,Whole Blood 168 mg/dL (75-99)
[2018-04-05] MEDS: ENOXAPARIN 40 MG/0.4 ML SYRINGE SQ SCH (08:02)
[2018-04-05] MEDS: INSULIN ASPART 100 UNIT/ML 1 ML 10 ML VIAL SQ SCH ×4 (08:03→22:16)
[2018-04-05] MEDS: BUDESONIDE 1 MG/2 ML NEBU INHALATION SCH ×2 (08:22→19:37)
[2018-04-05] MEDS: IPRATROPIUM-ALBUTEROL 3 ML NEB INHALATION SCH ×4 (08:22→19:37)
[2018-04-05] MEDS: FORMOTEROL FUMARATE 20 MCG/2 ML NEBU INHALATION SCH ×2 (08:22→19:37)
[2018-04-05 08:31] LABS: Anion Gap 12 mmol/L; Blood Urea Nitrogen 11 mg/dL (9-20); Carbon Dioxide 23 mmol/L (22-30); Chloride 104 mmol/L (98-107); Glucose 213 mg/dL (74-99); Potassium 4.3 mmol/L (3.5-5.1); Sodium 139 mmol/L (137-145)
[2018-04-05 11:32] LABS: Glucose,Whole Blood 134 mg/dL (75-99)
[2018-04-05 11:58] LABS: Basophils % (A) 0 %; Eosinophils % (A) 0 %; HCT 43.8 % (39.0-53.0); HGB 13.6 gm/dL (13.0-17.5); Lymphocytes # (A) 0.5 k/uL (1.0-4.8); Lymphocytes % (A) 4 %; MCH 30.4 pg (25.0-35.0); MCV 98.3 fL (80.0-100.0); Mean Platelet Volume 8.4; Monocytes # (A) 0.4 k/uL (0-1.0); Monocytes % (A) 3 %; Neutrophils # (A) 11.8 k/uL (1.3-7.7); Neutrophils % (A) 92 %; Platelet Count 286 k/uL (150-450); RBC 4.46 m/uL (4.30-5.90); WBC 12.8 k/uL (3.8-10.6)
--- NOTE | 2018-04-05 13:04 | P.PN ---
Subjective Progress Note Date: 04/05/18 Principal diagnosis: Diffuse bilateral infiltrates, related to bilateral pneumonia, acute exacerbation of COPD Jamal is a 47-year-old white male patient of Dr. Campos, who presented to the emergency department on 04/02/2018 at 2200 for evaluation of progressive weakness, shortness of breath, chest congestion, wheezing. Patient states about a week ago he was seen in the emergency department for complaints of cough , shortness of breath, fever, chills. His cough was productive with green sputum. Patient is a current smoker, smokes 1 to 2 packs a day for over 35 years. Patient states he was given a prescription of antibiotics and the rescue inhaler, however after reviewing ER records, it is evident the patient was given oral steroids and Pro-Air inhaler, was referred to see Dr. Christensen and Dr. Nunes in the office, and discharged home. Patient is currently homeless, he states he is been sleeping in the [facility]. He was recently incarcerated for credit card fraud, and released sometime in January. Has a history of other incarcerations for drug charges and peripheral violations. He states he had a PPD test in skilled nursing, which was negative, and he was checked for HIV there and the test was reportedly negative. He does admit to daily EtOH use, he drinks 4-5 24 ounce cans of beer daily, denies any other drug use, no marijuana, no cocaine, no injectable drugs. Does admit to previous use of meth. Patient has never seen a criminal intelligence specialist in the past. He did have previous episodes of pneumonia, for which she was hospitalized, and was supposed to be seen by a stores clerk, however she never followed up related to his lack of insurance. No other significant medical history, no history of hypertension, no diabetes, no CT. Patient states he does have history of COPD, not on any medications for it. He denies any hemoptysis. He states after he took his prescriptions patient did not get any better, a progressively weaker and short of breath. His initial chest x-ray from 03/26/2018 from his first visit to the ER showed no focal airspace opacity , pleural effusion or pneumothorax. Prominent lung volumes were seen, blunting of the costophrenic angles likely due to hyperinflation, and bronchial wall thickening. CT angios was completed on his second trip to the ER on 04/02/2018 and showed no evidence of pulmonary embolism, extensive bilateral reticular nodular pulmonary infiltrates, and nodules measuring up to 2 cm, mild bronchial adenopathy. Blood work showed WBC of 12.5, hemoglobin of 14.1, INR of 1.0, sodium of 135, chloride is 96, BUN of 10, creatinine 0.54. Plasma lactic acid was 1.5, total bili was 1.4, AST was 65, ALT was 78, CK-MB was 2.9, troponin was negative 1. EKG showed normal sinus rhythm, minimal voltage criteria for LVH. Patient was started on empiric antibiotics in the form of Zithromax, bronchodilators, and admitted for further management. We are asked to see the patient in consultation for abnormal findings seen on the CT angios, most likely related to diffuse bilateral nodular infiltrates related to pneumonia. Possibility of endocarditis has to be ruled out, an echocardiogram has been ordered. On 04 05 2018 patient seen in follow-up on medical surgical floor. He states his breathing is easier today, lung sounds are positive for diffuse wheezes, seems to have improved from yesterday. No fever, no chills, no sweats. Pulse ox on 2 L per nasal cannula is 99%, patient is afebrile, not bringing up much sputum, blood culture showed no growth at the 48 hour doug, sputum culture is pending. Yesterday we place the patient on combination of Zosyn and Levaquin for possibility of aspiration pneumonia or gram-negative pneumonia. Urine drug screen was negative, Legionella urine antigen is still pending. Patient continues on IV steroids, nebulized bronchodilators, he is improving. Yesterday were ordered echocardiogram to rule out a possibility of endocarditis , awaiting the results. Objective - Vital Signs Vital signs: Vital Signs Temp 96.5 F L 04/05/18 05:55 Pulse 64 04/05/18 11:53 Resp 16 04/05/18 05:55 BP 150/94 04/05/18 05:55 Pulse Ox 99 04/05/18 05:55 Intake & Output 04/04/18 04/05/18 04/05/18 18:59 06:59 18:59 Intake Total 370 320 Output Total 350 Balance 20 320 Intake: Intake, IV Titration 50 Amount Piperacillin-Tazobactam 3 50 .375 gm In Dextrose/Water 1 50ml.bag @ 12.5 mls/hr IVPB Q8HR [facility] Rx#: [id number] Oral 320 320 Output: Urine 350 Other: Voiding Method Toilet Toilet # Voids 3 2 # Bowel Movements 1 - Exam GENERAL EXAM: Alert, pleasant, 47-year-old white male, appears much older than stated age comfortable in no apparent distress. HEAD: Normocephalic/atraumatic. EYES: Normal reaction of pupils, equal size. Conjunctiva pink, sclera white. NOSE: Clear with pink turbinates. THROAT: No erythema or exudates. NECK: No masses, no JVD, no thyroid enlargement, no adenopathy. CHEST: No chest wall deformity. Symmetrical expansion. LUNGS: Diffuse wheezes bilaterally CVS: Regular rate and rhythm, normal S1 and S2, no gallops, no murmurs, no rubs ABDOMEN: Soft, nontender. No hepatosplenomegaly, normal bowel sounds, no guarding or rigidity. EXTREMITIES: No clubbing, no edema, no cyanosis, 2+ pulses and upper and lower extremities. MUSCULOSKELETAL: Muscle strength and tone normal. SPINE: No scoliosis or deformity SKIN: No rashes CENTRAL NERVOUS SYSTEM: Alert and oriented -3. No focal deficits, tone is normal in all 4 extremities. PSYCHIATRIC: Alert and oriented -3. Appropriate affect. Intact judgment and insight. - Labs CBC & Chem 7: 04/05/18 07:41 04/05/18 07:41 Labs: Abnormal Lab Results - Last 24 Hours (Table) 04/04/18 04/04/18 04/04/18 Range/Units 17:13 21:19 23:09 WBC (3.8-10.6) k/uL Neutrophils # (1.3-7.7) k/uL Lymphocytes # (1.0-4.8) k/uL Creatinine (0.66-1.25) mg/dL Glucose (74-99) mg/dL POC Glucose (mg/dL) 134 H 261 H 155 H (75-99) mg/dL 04/05/18 04/05/18 04/05/18 Range/Units 07:07 07:41 07:41 WBC 12.8 H (3.8-10.6) k/uL Neutrophils # 11.8 H (1.3-7.7) k/uL Lymphocytes # 0.5 L (1.0-4.8) k/uL Creatinine 0.54 L (0.66-1.25) mg/dL Glucose 213 H (74-99) mg/dL POC Glucose (mg/dL) 168 H (75-99) mg/dL 04/05/18 Range/Units 11:31 WBC (3.8-10.6) k/uL Neutrophils # (1.3-7.7) k/uL Lymphocytes # (1.0-4.8) k/uL Creatinine (0.66-1.25) mg/dL Glucose (74-99) mg/dL POC Glucose (mg/dL) 134 H (75-99) mg/dL Microbiology - Last 24 Hours (Table) 04/04/18 19:30 Gram Stain - Preliminary Sputum 04/02/18 21:50 Blood Culture - Preliminary Blood No Growth after 48 hours Assessment and Plan Plan: Assessment: #1. Dyspnea, chest congestion, fever, weakness. CT angios positive for diffuse nodular infiltrates in bilateral lungs, likely related to bilateral pneumonia. Possibility of endocarditis has to be ruled out, echocardiogram has been ordered. There is a possibility of gram-negative pneumonia versus aspiration pneumonia, in this patient with history of heavy alcohol use #2. Acute exacerbation of chronic obstructive pulmonary disease related to the above, the severity of which is unknown at this time #3. Chronic and ongoing nicotine dependence, patient smokes one to 2 packs a day for over 35 years #4. Previous episodes of pneumonia #5. Recent history of incarceration, released sometime in January 2018. According to the patient, as per the routine procedure PPD test and HIV tests were completed in skilled nursing, and were both negative #6. EtOH abuse, patient drinks 4-5 ounce cans of beer daily #7. Homelessness #8. Mild elevation of liver enzymes Plan: Continue current antibiotic coverage, continue IV Solu-Medrol, continue nebulas bronchodilators. Patient is feeling better today, sputum culture is pending, patient is afebrile, still remains bronchospastic, but seems to have improved from yesterday's exam. Awaiting the results of the echocardiogram. I performed a history & physical examination of the patient and discussed their management with my nurse practitioner, Larissa Cortez. I reviewed the nurse practitioner's note and agree with the documented findings and plan of care. Lung sounds are positive for diffuse wheezes throughout the lung murry. The findings and the impression was discussed with the patient. I attest to the documentation by the nurse practitioner. Time with Patient: Less than 30
[2018-04-05] MEDS: NICOTINE 21MG/24HR PATCH TRANSDERM SCH (13:05)
--- NOTE | 2018-04-05 13:22 | P.PN ---
Subjective Progress Note Date: 04/04/18 Progress note being dictated for Dr. Mcfarland. Interval history:47-year-old gentleman with known history of smoking came in with complains of shortness of breath cough with greenish sputum production. Patient was started on my Solu-Medrol and was given a dose of azithromycin. Patient does not have any lobar infiltrate does have some diffuse nonspecific infiltrate without any air bronchogram has some nodules to about 2 cm because of which I'm consulted thing that pulmonary. Patient steroids will be switched to oral continued breathing treatments patient has some improvement in his shortness of breath patient doesn't use any oxygen at home. Review of Systems PHYSICAL EXAMINATION: GENERAL: The patient is alert and oriented x3, not in any acute distress. Well developed, well nourished. HEENT: Pupils are round and equally reacting to light. EOMI. No scleral icterus. No conjunctival pallor. Normocephalic, atraumatic. No pharyngeal erythema. No thyromegaly. CARDIOVASCULAR: S1 and S2 present. No murmurs, rubs, or gallops. PULMONARY: Expiratory wheezing rhonchus breath sounds ABDOMEN: Soft, nontender, nondistended, normoactive bowel sounds. No palpable organomegaly. MUSCULOSKELETAL: No joint swelling or deformity. EXTREMITIES: No cyanosis, clubbing, or pedal edema. NEUROLOGICAL: Gross neurological examination did not reveal any focal deficits. SKIN: No rashes. 04/04/2018 maintained on nebulized bronchodilators, systemic steroids, antibiotics. Wheezing persists. Reports productive cough with green sputum. Evaluated by pulmonary with recommendations noted. Possible endocarditis, echo ordered. Drug screen negative. Objective - Vital Signs Vital signs: Vital Signs Temp 98.0 F 04/04/18 15:00 Pulse 76 04/04/18 18:32 Resp 18 04/04/18 18:32 BP 137/95 04/04/18 15:00 Pulse Ox 95 04/04/18 15:00 Intake & Output 04/04/18 04/04/18 04/05/18 06:59 18:59 06:59 Intake Total 370 Output Total 350 Balance 20 Intake: Intake, IV Titration 50 Amount Piperacillin-Tazobactam 3 50 .375 gm In Dextrose/Water 1 50ml.bag @ 12.5 mls/hr IVPB Q8HR [facility], [facility]–1983 Rx#: [id number] Oral 320 Output: Urine 350 Other: Voiding Method Toilet # Voids 3 3 # Bowel Movements 0 1 - Exam GENERAL: The patient is sitting up in bed, alert and oriented x3, no acute distress. HEENT: Pupils are round and equally reacting to light. EOMI. No scleral icterus. No conjunctival pallor. Normocephalic, atraumatic. CARDIOVASCULAR: S1 and S2 present. No murmurs, rubs, or gallops. PULMONARY: Scattered rhonchi throughout with Expiratory wheezing ABDOMEN: Soft, nontender, nondistended, normoactive bowel sounds. No palpable organomegaly. MUSCULOSKELETAL: No joint swelling or deformity. EXTREMITIES: No cyanosis, clubbing, or pedal edema. NEUROLOGICAL: Gross neurological examination did not reveal any focal deficits. SKIN: No rashes. - Labs CBC & Chem 7: 04/05/18 07:41 04/05/18 07:41 Labs: Abnormal Lab Results - Last 24 Hours (Table) 04/03/18 04/04/18 04/04/18 Range/Units 20:50 07:18 12:09 POC Glucose (mg/dL) 166 H 104 H 122 H (75-99) mg/dL 04/04/18 Range/Units 17:13 POC Glucose (mg/dL) 134 H (75-99) mg/dL Microbiology - Last 24 Hours (Table) 04/02/18 21:50 Blood Culture - Preliminary Blood No Growth after 24 hours Assessment and Plan Assessment: -Acute COPD exacerbation with tracheobronchitis. -Possible gram-negative pneumonia, possible aspiration pneumonia. -Possible endocarditis, echo pending. -2 cm pulmonary nodule was smoking history pulmonary will be consulted, patient will need outpatient follow-up with repeat CAT scan. -Ongoing alcohol and nicotine abuse, history of meth abuse. -Mildly elevated LFTs. Plan: Continue on current medication regime ,monitoring and symptomatic treatment. Maintain nebulized bronchodilators, systemic steroids, antibiotics. Smoking and alcohol cessation readdressed. Aggressive pulmonary toileting. Increase ambulation as tolerated. Sputum ,Legionella cultures ordered. Echo pending. Recent incarceration, reports negative HIV, PPD tests in penitentiary. Hepatitis panel ordered. The impression and plan of care has been dictated as directed. : I performed a history and examination of this patient, discussed the same with the dictator. I agree with the dictator's note ,documented as a scribe. Any additional findings or plans will be noted.
--- NOTE | 2018-04-05 13:32 | P.PN ---
Subjective Progress Note Date: 04/05/18 Progress note being dictated for Dr. Mcfarland. Interval history:47-year-old gentleman with known history of smoking came in with complains of shortness of breath cough with greenish sputum production. Patient was started on my Solu-Medrol and was given a dose of azithromycin. Patient does not have any lobar infiltrate does have some diffuse nonspecific infiltrate without any air bronchogram has some nodules to about 2 cm because of which I'm consulted thing that pulmonary. Patient steroids will be switched to oral continued breathing treatments patient has some improvement in his shortness of breath patient doesn't use any oxygen at home. Review of Systems PHYSICAL EXAMINATION: GENERAL: The patient is alert and oriented x3, not in any acute distress. Well developed, well nourished. HEENT: Pupils are round and equally reacting to light. EOMI. No scleral icterus. No conjunctival pallor. Normocephalic, atraumatic. No pharyngeal erythema. No thyromegaly. CARDIOVASCULAR: S1 and S2 present. No murmurs, rubs, or gallops. PULMONARY: Expiratory wheezing rhonchus breath sounds ABDOMEN: Soft, nontender, nondistended, normoactive bowel sounds. No palpable organomegaly. MUSCULOSKELETAL: No joint swelling or deformity. EXTREMITIES: No cyanosis, clubbing, or pedal edema. NEUROLOGICAL: Gross neurological examination did not reveal any focal deficits. SKIN: No rashes. 04/04/2018 maintained on nebulized bronchodilators, systemic steroids, antibiotics. Wheezing persists. Reports productive cough with green sputum. Evaluated by pulmonary with recommendations noted. Possible endocarditis, echo ordered. Drug screen negative. 04/05/2018 breathing improving, maintaining O2 sats of high 90s on 2 L nasal cannula. Reports nonproductive cough. Afebrile, sputum culture pending, preliminary blood cultures no growth at 48 hours. Legionella and echo pending. Objective - Vital Signs Vital signs: Vital Signs Temp 96.5 F L 04/05/18 05:55 Pulse 64 04/05/18 11:53 Resp 16 04/05/18 05:55 BP 150/94 04/05/18 05:55 Pulse Ox 99 04/05/18 05:55 Intake & Output 04/04/18 04/05/18 04/05/18 18:59 06:59 18:59 Intake Total 370 320 Output Total 350 Balance 20 320 Intake: Intake, IV Titration 50 Amount Piperacillin-Tazobactam 3 50 .375 gm In Dextrose/Water 1 50ml.bag @ 12.5 mls/hr IVPB Q8HR [facility] Rx#: [id number] Oral 320 320 Output: Urine 350 Other: Voiding Method Toilet Toilet # Voids 3 2 # Bowel Movements 1 - Exam GENERAL: The patient is sitting up in bed, alert and oriented x3, no acute distress. HEENT: Pupils are round and equally reacting to light. EOMI. No scleral icterus. No conjunctival pallor. Normocephalic, atraumatic. CARDIOVASCULAR: S1 and S2 present. No murmurs, rubs, or gallops. PULMONARY: Diminished with improving scattered Expiratory wheezing ABDOMEN: Soft, nontender, nondistended, normoactive bowel sounds. No palpable organomegaly. MUSCULOSKELETAL: No joint swelling or deformity. EXTREMITIES: No cyanosis, clubbing, or pedal edema. NEUROLOGICAL: Gross neurological examination did not reveal any focal deficits. SKIN: No rashes. - Labs CBC & Chem 7: 04/05/18 07:41 04/05/18 07:41 Labs: Abnormal Lab Results - Last 24 Hours (Table) 04/04/18 04/04/18 04/04/18 Range/Units 17:13 21:19 23:09 WBC (3.8-10.6) k/uL Neutrophils # (1.3-7.7) k/uL Lymphocytes # (1.0-4.8) k/uL Creatinine (0.66-1.25) mg/dL Glucose (74-99) mg/dL POC Glucose (mg/dL) 134 H 261 H 155 H (75-99) mg/dL 04/05/18 04/05/18 04/05/18 Range/Units 07:07 07:41 07:41 WBC 12.8 H (3.8-10.6) k/uL Neutrophils # 11.8 H (1.3-7.7) k/uL Lymphocytes # 0.5 L (1.0-4.8) k/uL Creatinine 0.54 L (0.66-1.25) mg/dL Glucose 213 H (74-99) mg/dL POC Glucose (mg/dL) 168 H (75-99) mg/dL 04/05/18 Range/Units 11:31 WBC (3.8-10.6) k/uL Neutrophils # (1.3-7.7) k/uL Lymphocytes # (1.0-4.8) k/uL Creatinine (0.66-1.25) mg/dL Glucose (74-99) mg/dL POC Glucose (mg/dL) 134 H (75-99) mg/dL Microbiology - Last 24 Hours (Table) 04/04/18 19:30 Gram Stain - Preliminary Sputum 04/02/18 21:50 Blood Culture - Preliminary Blood No Growth after 48 hours Assessment and Plan Assessment: -Acute COPD exacerbation with tracheobronchitis. -Possible gram-negative pneumonia, possible aspiration pneumonia. -Possible endocarditis, echo pending. -2 cm pulmonary nodule was smoking history pulmonary will be consulted, patient will need outpatient follow-up with repeat CAT scan. -Ongoing alcohol and nicotine abuse, history of meth abuse. -Mildly elevated LFTs. Plan: Continue on current medication regime ,monitoring and symptomatic treatment. Continue nebulized bronchodilators, systemic steroids, antibiotics. Aggressive pulmonary toileting. Increase ambulation as tolerated. Echo, Sputum ,Legionella , hepatitis cultures pending. The impression and plan of care has been dictated as directed. : I performed a history and examination of this patient, discussed the same with the dictator. I agree with the dictator's note ,documented as a scribe. Any additional findings or plans will be noted.
[2018-04-05 17:05] LABS: Glucose,Whole Blood 290 mg/dL (75-99)
[2018-04-05] MEDS ORDERED: INSULIN ASPART 100 UNIT/ML 1 ML 10 ML VIAL SQ ONE (17:19)
[2018-04-05 19:30] LABS: Hepatitis A Antibody IgM Non-Reactive (Non-Reactive); Hepatitis B Core IgM Non-Reactive (Non-Reactive)
[2018-04-05 21:32] LABS: Glucose,Whole Blood 140 mg/dL (75-99)
[2018-04-05] MEDS: LEVOFLOXACIN 750MG-D5W PMX 750 MG in DEXTROSE/WATER 1 150ML.BAG IVPB SCH (22:15)
[2018-04-06] MEDS: PIPERACILLIN-TAZOBACTAM 3.375 GM in DEXTROSE/WATER 1 50ML.BAG IVPB SCH ×3 (00:50→14:54)
[2018-04-06] MEDS: methylPREDNISolone SOD SUCCI 125 MG/2 ML VIAL IV SCH ×3 (00:51→12:17)
[2018-04-06 07:30] LABS: Glucose,Whole Blood 129 mg/dL (75-99)
[2018-04-06] MEDS: INSULIN ASPART 100 UNIT/ML 1 ML 10 ML VIAL SQ SCH ×4 (07:30→22:40)
[2018-04-06] MEDS: ENOXAPARIN 40 MG/0.4 ML SYRINGE SQ SCH (07:31)
[2018-04-06] MEDS: NICOTINE 21MG/24HR PATCH TRANSDERM SCH (07:31)
[2018-04-06] MEDS: FORMOTEROL FUMARATE 20 MCG/2 ML NEBU INHALATION SCH ×2 (07:51→20:07)
[2018-04-06] MEDS: IPRATROPIUM-ALBUTEROL 3 ML NEB INHALATION SCH ×4 (07:51→19:49)
[2018-04-06] MEDS: BUDESONIDE 1 MG/2 ML NEBU INHALATION SCH ×2 (07:51→19:49)
[2018-04-06] MEDS: THIAMINE 100 MG TAB PO SCH (12:18)
[2018-04-06] MEDS: FOLIC ACID 1 MG TAB PO SCH (12:18)
[2018-04-06] MEDS: MULTIVITAMINS, THERA 1 EACH TAB PO SCH (12:18)
[2018-04-06 12:29] LABS: Glucose,Whole Blood 167 mg/dL (75-99)
--- NOTE | 2018-04-06 13:39 | P.PN ---
Subjective Progress Note Date: 04/06/18 Principal diagnosis: Acute exacerbation of chronic obstructive pulmonary disease complicated by bilateral pneumonia Jamal is a 47-year-old white male patient of Dr. Campos, who presented to the emergency department on 04/02/2018 at 2200 for evaluation of progressive weakness, shortness of breath, chest congestion, wheezing. Patient states about a week ago he was seen in the emergency department for complaints of cough , shortness of breath, fever, chills. His cough was productive with green sputum. Patient is a current smoker, smokes 1 to 2 packs a day for over 35 years. Patient states he was given a prescription of antibiotics and the rescue inhaler, however after reviewing ER records, it is evident the patient was given oral steroids and Pro-Air inhaler, was referred to see Dr. Christensen and Dr. Nunes in the office, and discharged home. Patient is currently homeless, he states he is been sleeping in the [facility]. He was recently incarcerated for credit card fraud, and released sometime in January. Has a history of other incarcerations for drug charges and peripheral violations. He states he had a PPD test in prison, which was negative, and he was checked for HIV there and the test was reportedly negative. He does admit to daily EtOH use, he drinks 4-5 24 ounce cans of beer daily, denies any other drug use, no marijuana, no cocaine, no injectable drugs. Does admit to previous use of meth. Patient has never seen a compound specialist in the past. He did have previous episodes of pneumonia, for which she was hospitalized, and was supposed to be seen by a kardex clerk, however she never followed up related to his lack of insurance. No other significant medical history, no history of hypertension, no diabetes, no CT. Patient states he does have history of COPD, not on any medications for it. He denies any hemoptysis. He states after he took his prescriptions patient did not get any better, a progressively weaker and short of breath. His initial chest x-ray from 03/26/2018 from his first visit to the ER showed no focal airspace opacity , pleural effusion or pneumothorax. Prominent lung volumes were seen, blunting of the costophrenic angles likely due to hyperinflation, and bronchial wall thickening. CT angios was completed on his second trip to the ER on 04/02/2018 and showed no evidence of pulmonary embolism, extensive bilateral reticular nodular pulmonary infiltrates, and nodules measuring up to 2 cm, mild bronchial adenopathy. Blood work showed WBC of 12.5, hemoglobin of 14.1, INR of 1.0, sodium of 135, chloride is 96, BUN of 10, creatinine 0.54. Plasma lactic acid was 1.5, total bili was 1.4, AST was 65, ALT was 78, CK-MB was 2.9, troponin was negative 1. EKG showed normal sinus rhythm, minimal voltage criteria for LVH. Patient was started on empiric antibiotics in the form of Zithromax, bronchodilators, and admitted for further management. We are asked to see the patient in consultation for abnormal findings seen on the CT angios, most likely related to diffuse bilateral nodular infiltrates related to pneumonia. Possibility of endocarditis has to be ruled out, an echocardiogram has been ordered. On 04 05 2018 patient seen in follow-up on medical surgical floor. He states his breathing is easier today, lung sounds are positive for diffuse wheezes, seems to have improved from yesterday. No fever, no chills, no sweats. Pulse ox on 2 L per nasal cannula is 99%, patient is afebrile, not bringing up much sputum, blood culture showed no growth at the 48 hour doug, sputum culture is pending. Yesterday we place the patient on combination of Zosyn and Levaquin for possibility of aspiration pneumonia or gram-negative pneumonia. Urine drug screen was negative, Legionella urine antigen is still pending. Patient continues on IV steroids, nebulized bronchodilators, he is improving. Yesterday were ordered echocardiogram to rule out a possibility of endocarditis , awaiting the results. Patient seen again today 04/06/2018 in follow-up on the regular medical floor. He is awake and alert in no acute distress. Currently resting comfortably in bed. He states he is breathing easier today as compared to yesterday but still not quite back to his baseline. Still dyspneic on minimal exertion. Still bronchus spastic and wheezing. Maintaining good O2 saturations in the 90s on 2 L/m per nasal cannula. Blood and sputum cultures reveal no growth to date. Objective - Vital Signs Vital signs: Vital Signs Temp 97.1 F L 04/06/18 06:29 Pulse 72 04/06/18 11:27 Resp 20 04/06/18 06:29 BP 135/80 04/06/18 06:29 Pulse Ox 95 04/06/18 06:29 Intake & Output 04/05/18 04/06/18 04/06/18 18:59 06:59 18:59 Intake Total 570 500 Output Total 350 Balance 570 500 -350 Weight 81.647 kg Intake: Intake, IV Titration 50 Amount Piperacillin-Tazobactam 3 50 .375 gm In Dextrose/Water 1 50ml.bag @ 12.5 mls/hr IVPB Q8HR [facility] Rx#: [id number] Oral 520 500 Output: Urine 350 Other: Voiding Method Toilet Toilet # Voids 1 1 # Bowel Movements 0 0 - Exam GENERAL EXAM: Alert, pleasant, 47-year-old white male, appears much older than stated age comfortable in no apparent distress. HEAD: Normocephalic/atraumatic. EYES: Normal reaction of pupils, equal size. Conjunctiva pink, sclera white. NOSE: Clear with pink turbinates. THROAT: No erythema or exudates. NECK: No masses, no JVD, no thyroid enlargement, no adenopathy. CHEST: No chest wall deformity. Symmetrical expansion. LUNGS: Diffuse wheezes bilaterally CVS: Regular rate and rhythm, normal S1 and S2, no gallops, no murmurs, no rubs ABDOMEN: Soft, nontender. No hepatosplenomegaly, normal bowel sounds, no guarding or rigidity. EXTREMITIES: No clubbing, no edema, no cyanosis, 2+ pulses and upper and lower extremities. MUSCULOSKELETAL: Muscle strength and tone normal. SPINE: No scoliosis or deformity SKIN: No rashes CENTRAL NERVOUS SYSTEM: Alert and oriented -3. No focal deficits, tone is normal in all 4 extremities. PSYCHIATRIC: Alert and oriented -3. Appropriate affect. Intact judgment and insight. - Labs CBC & Chem 7: 04/05/18 07:41 04/05/18 07:41 Labs: Abnormal Lab Results - Last 24 Hours (Table) 04/05/18 04/05/18 04/05/18 Range/Units 07:41 17:01 21:15 POC Glucose (mg/dL) 290 H 140 H (75-99) mg/dL Hep C IgG Ab Reactive H (Non-Reactive) 04/06/18 04/06/18 Range/Units 07:13 12:27 POC Glucose (mg/dL) 129 H 167 H (75-99) mg/dL Hep C IgG Ab (Non-Reactive) Microbiology - Last 24 Hours (Table) 04/04/18 19:30 Gram Stain - Preliminary Sputum Sputum Culture - Preliminary 04/02/18 21:50 Blood Culture - Preliminary Blood No Growth after 72 hours Assessment and Plan Assessment: Assessment: #1. Dyspnea, chest congestion, fever, weakness. CT angios positive for diffuse nodular infiltrates in bilateral lungs, likely related to bilateral pneumonia. Possibility of endocarditis has to be ruled out, echocardiogram has been ordered. There is a possibility of gram-negative pneumonia versus aspiration pneumonia, in this patient with history of heavy alcohol use #2. Acute exacerbation of chronic obstructive pulmonary disease related to the above, the severity of which is unknown at this time #3. Chronic and ongoing nicotine dependence, patient smokes one to 2 packs a day for over 35 years #4. Previous episodes of pneumonia #5. Recent history of incarceration, released sometime in January 2018. According to the patient, as per the routine procedure PPD test and HIV tests were completed in prison, and were both negative #6. EtOH abuse, patient drinks 4-5 ounce cans of beer daily #7. Homelessness #8. Mild elevation of liver enzymes Plan: The patient was seen and evaluated by Dr. Nunes. He is improved today as compared to yesterday but still not back to his baseline. We'll continue with the current treatment plan including DuoNeb inhalations, Pulmicort and Perforomist inhalations, IV Solu-Medrol and antibiotics in the form of Zosyn and Levaquin. He is again educated regarding the importance of complete smoking cessation. Habitrol patches in place. DVT prophylaxis. We will increase his activity as tolerated. We'll continue to follow make further recommendations based on his clinical status. I, the cosigning physician, performed a history & physical examination of the patient. Lungs sounds with bilateral wheeze and a few scattered rhonchi. Maintaining good O2 saturations in the 90s on 2 L/m per nasal cannula. I discussed the assessment and plan of care with my nurse practitioner, Demi Vaca. I attest to the above note as dictated by her.
[2018-04-06] MEDS ORDERED: TEMAZEPAM 15 MG CAP PO PRN (15:09)
[2018-04-06] MEDS: methylPREDNISolone SOD SUCCI 40 MG/ML 1 ML VIAL IV SCH (16:00)
[2018-04-06 17:17] LABS: Glucose,Whole Blood 161 mg/dL (75-99)
[2018-04-06 20:51] LABS: Glucose,Whole Blood 152 mg/dL (75-99)
--- NOTE | 2018-04-06 21:20 | PN ---
PROGRESS NOTE DATE OF SERVICE: 04/06/2018 This 47-year-old gentleman who was admitted with COPD acute exacerbation, on IV steroids. No chest pain. No palpitations. No fever. PHYSICAL EXAM: Alert and oriented x3. Pulse 72, blood pressure 138/80, respiration 20, temperature 97.1, pulse ox 94% on room air. HEENT: Conjunctivae normal. Oral mucosa moist. Neck is no jugular venous distention. No carotid bruit. No lymph node enlargement. CARDIOVASCULAR: S1, S2. RESPIRATORY: Breath sounds diminished in the bases. a few scattered rhonchi and crackles. ABDOMEN: Soft, nontender. No mass palpable. LEGS: No edema. NERVOUS SYSTEM: No focal deficits. LABS: WBC 2.8, hemoglobin 13.6. ASSESSMENT: 1. Chronic obstructive pulmonary disease exacerbation with acute purulent tracheobronchitis. 2. Possible gram-negative pneumonia, possible aspiration pneumonia. 3. Possible endocarditis. Echo is pending. 4. 2 cm pulmonary nodule with smoking history. 5. Ongoing alcohol, nicotine dependence. 6. Elevated LFTs. RECOMMENDATIONS AND DISCUSSION: I recommend to continue current management, continue monitoring and symptomatic treatment. At this time recommend continue broad spectrum IV antibiotics, bronchodilators, several DVT prophylaxis. We will continue the current medications, continue symptomatic treatment. Otherwise, increase ambulation. Smoking cessation advised. Prognosis guarded because of multiple complex medical issues and further recommendations to follow. MMODL / IJN: [id number] /
[2018-04-06] MEDS: LEVOFLOXACIN 750MG-D5W PMX 750 MG in DEXTROSE/WATER 1 150ML.BAG IVPB SCH (22:40)
[2018-04-07] MEDS: methylPREDNISolone SOD SUCCI 40 MG/ML 1 ML VIAL IV SCH ×3 (00:39→15:52)
[2018-04-07] MEDS: PIPERACILLIN-TAZOBACTAM 3.375 GM in DEXTROSE/WATER 1 50ML.BAG IVPB SCH ×3 (00:40→15:52)
[2018-04-07] MEDS: INSULIN ASPART 100 UNIT/ML 1 ML 10 ML VIAL SQ SCH ×4 (07:37→20:32)
[2018-04-07 07:38] LABS: Glucose,Whole Blood 124 mg/dL (75-99)
[2018-04-07] MEDS: ENOXAPARIN 40 MG/0.4 ML SYRINGE SQ SCH (07:47)
[2018-04-07] MEDS: PANTOPRAZOLE 40 MG TABLET PO SCH (07:47)
[2018-04-07] MEDS: NICOTINE 21MG/24HR PATCH TRANSDERM SCH (07:47)
[2018-04-07] MEDS: IPRATROPIUM-ALBUTEROL 3 ML NEB INHALATION SCH ×4 (08:30→19:30)
[2018-04-07] MEDS: FORMOTEROL FUMARATE 20 MCG/2 ML NEBU INHALATION SCH ×2 (08:30→19:30)
[2018-04-07] MEDS: BUDESONIDE 1 MG/2 ML NEBU INHALATION SCH ×2 (08:30→19:30)
--- NOTE | 2018-04-07 11:12 | P.PN ---
Subjective Progress Note Date: 04/07/18 Principal diagnosis: Diffuse bilateral infiltrates, related to bilateral pneumonia, acute exacerbation of COPD Jamal is a 47-year-old white male patient of Dr. Campos, who presented to the emergency department on 04/02/2018 at 2200 for evaluation of progressive weakness, shortness of breath, chest congestion, wheezing. Patient states about a week ago he was seen in the emergency department for complaints of cough , shortness of breath, fever, chills. His cough was productive with green sputum. Patient is a current smoker, smokes 1 to 2 packs a day for over 35 years. Patient states he was given a prescription of antibiotics and the rescue inhaler, however after reviewing ER records, it is evident the patient was given oral steroids and Pro-Air inhaler, was referred to see Dr. Christensen and Dr. Nunes in the office, and discharged home. Patient is currently homeless, he states he is been sleeping in the [facility]. He was recently incarcerated for credit card fraud, and released sometime in January. Has a history of other incarcerations for drug charges and peripheral violations. He states he had a [facility] test in [facility], which was negative, and he was checked for HIV there and the test was reportedly negative. He does admit to daily EtOH use, he drinks 4-5 24 ounce cans of beer daily, denies any other drug use, no marijuana, no cocaine, no injectable drugs. Does admit to previous use of meth. Patient has never seen a site acquisition specialist in the past. He did have previous episodes of pneumonia, for which she was hospitalized, and was supposed to be seen by a tool grinder set up operator gear, however she never followed up related to his lack of insurance. No other significant medical history, no history of hypertension, no diabetes, no OH. Patient states he does have history of COPD, not on any medications for it. He denies any hemoptysis. He states after he took his prescriptions patient did not get any better, a progressively weaker and short of breath. His initial chest x-ray from 03/26/2018 from his first visit to the ER showed no focal airspace opacity , pleural effusion or pneumothorax. Prominent lung volumes were seen, blunting of the costophrenic angles likely due to hyperinflation, and bronchial wall thickening. CT angios was completed on his second trip to the ER on 04/02/2018 and showed no evidence of pulmonary embolism, extensive bilateral reticular nodular pulmonary infiltrates, and nodules measuring up to 2 cm, mild bronchial adenopathy. Blood work showed WBC of 12.5, hemoglobin of 14.1, INR of 1.0, sodium of 135, chloride is 96, BUN of 10, creatinine 0.54. Plasma lactic acid was 1.5, total bili was 1.4, AST was 65, ALT was 78, CK-MB was 2.9, troponin was negative 1. EKG showed normal sinus rhythm, minimal voltage criteria for LVH. Patient was started on empiric antibiotics in the form of Zithromax, bronchodilators, and admitted for further management. We are asked to see the patient in consultation for abnormal findings seen on the CT angios, most likely related to diffuse bilateral nodular infiltrates related to pneumonia. Possibility of endocarditis has to be ruled out, an echocardiogram has been ordered. On 04 05 2018 patient seen in follow-up on medical surgical floor. He states his breathing is easier today, lung sounds are positive for diffuse wheezes, seems to have improved from yesterday. No fever, no chills, no sweats. Pulse ox on 2 L per nasal cannula is 99%, patient is afebrile, not bringing up much sputum, blood culture showed no growth at the 48 hour doug, sputum culture is pending. Yesterday we place the patient on combination of Zosyn and Levaquin for possibility of aspiration pneumonia or gram-negative pneumonia. Urine drug screen was negative, Legionella urine antigen is still pending. Patient continues on IV steroids, nebulized bronchodilators, he is improving. Yesterday were ordered echocardiogram to rule out a possibility of endocarditis , awaiting the results. On 04/07/2018 patient seen in follow-up on medical surgical floor. He continues to improve, less short of breath, less wheezy. Lung sounds V wheezing on forced exhale maneuver, overall much less bronchospastic. Room air pulse ox is 97%, patient is afebrile, hemodynamically stable, visual cough with production of light colored phlegm. Blood cultures remain negative at the 96 hour doug, sputum culture showed many respiratory natasha. Patient has been treated with a combination of Zosyn and Levaquin were a possibility of aspiration pneumonia, or gram-negative pneumonia. Clinically improving, tolerating ambulation, so far just in the room. Encourage the patient to increase ambulation today, continue with current medical treatment. Objective - Vital Signs Vital signs: Vital Signs Temp 98.0 F 04/07/18 07:00 Pulse 84 04/07/18 08:55 Resp 18 04/07/18 07:00 BP 149/86 04/07/18 07:00 Pulse Ox 97 04/07/18 07:00 Intake & Output 04/06/18 04/07/18 04/07/18 18:59 06:59 18:59 Intake Total 340 500 240 Output Total 350 Balance -10 500 240 Weight 81.647 kg Intake: Intake, IV Titration 100 Amount Piperacillin-Tazobactam 3 100 .375 gm In Dextrose/Water 1 50ml.bag @ 12.5 mls/hr IVPB Q8HR [facility] Rx#: [id number] Oral 240 500 240 Output: Urine 350 Other: Voiding Method Toilet # Voids 2 1 # Bowel Movements 1 0 - Exam GENERAL EXAM: Alert, pleasant, 47-year-old white male, appears much older than stated age comfortable in no apparent distress. HEAD: Normocephalic/atraumatic. EYES: Normal reaction of pupils, equal size. Conjunctiva pink, sclera white. NOSE: Clear with pink turbinates. THROAT: No erythema or exudates. NECK: No masses, no JVD, no thyroid enlargement, no adenopathy. CHEST: No chest wall deformity. Symmetrical expansion. LUNGS: Diminished, wheezing on forced exhale maneuver CVS: Regular rate and rhythm, normal S1 and S2, no gallops, no murmurs, no rubs ABDOMEN: Soft, nontender. No hepatosplenomegaly, normal bowel sounds, no guarding or rigidity. EXTREMITIES: No clubbing, no edema, no cyanosis, 2+ pulses and upper and lower extremities. MUSCULOSKELETAL: Muscle strength and tone normal. SPINE: No scoliosis or deformity SKIN: No rashes CENTRAL NERVOUS SYSTEM: Alert and oriented -3. No focal deficits, tone is normal in all 4 extremities. PSYCHIATRIC: Alert and oriented -3. Appropriate affect. Intact judgment and insight. - Labs CBC & Chem 7: 04/05/18 07:41 04/05/18 07:41 Labs: Abnormal Lab Results - Last 24 Hours (Table) 04/06/18 04/06/18 04/06/18 Range/Units 12:27 17:10 20:41 POC Glucose (mg/dL) 167 H 161 H 152 H (75-99) mg/dL 04/07/18 Range/Units 07:27 POC Glucose (mg/dL) 124 H (75-99) mg/dL Microbiology - Last 24 Hours (Table) 04/02/18 21:50 Blood Culture - Preliminary Blood No Growth after 96 hours 04/04/18 19:30 Gram Stain - Preliminary Sputum Sputum Culture - Preliminary Assessment and Plan Plan: Assessment: #1. Acute exacerbation of chronic obstructive pulmonary disease related to possibility of aspiration pneumonia or gram-negative pneumonia. CT angios showed extensive bilateral reticulonodular pulmonary infiltrates and nodules measuring up to 2 cm with mild bronchial adenopathy. Echocardiogram has been ordered, and is pending at this time, to rule out the possibility of endocarditis. #2. Dyspnea, chest congestion, wheezing, fever secondary to above, improved #3. Chronic and ongoing nicotine dependence, patient smokes one to 2 packs a day for over 35 years #4. Previous episodes of pneumonia #5. Recent history of incarceration, released sometime in January 2018. According to the patient, as per the routine procedure PPD test and HIV tests were completed in [facility], and were both negative #6. EtOH abuse, patient drinks 4-5 ounce cans of beer daily #7. Homelessness #8. Mild elevation of liver enzymes Plan: Continue current medical treatment, continue IV Solu-Medrol, continue current antibiotic coverage, so far the sputum and blood cultures remain negative. Patient is afebrile, clinically improving, tolerating ambulation in the room, encourage ambulation in the hallway. Smoking cessation was reinforced, continue with nebulized bronchodilators, Pulmicort and Perforomist. If patient continues to improve, may consider discharge in next 24 hours. I performed a history & physical examination of the patient and discussed their management with my nurse practitioner, Larissa Cortez. I reviewed the nurse practitioner's note and agree with the documented findings and plan of care. Lung sounds are positive for diffuse wheezes on forced exhale maneuver, overall less bronchospastic. The findings and the impression was discussed with the patient. I attest to the documentation by the nurse practitioner. Time with Patient: Less than 30
[2018-04-07] MEDS: THIAMINE 100 MG TAB PO SCH (11:46)
[2018-04-07] MEDS: FOLIC ACID 1 MG TAB PO SCH (11:46)
[2018-04-07] MEDS: MULTIVITAMINS, THERA 1 EACH TAB PO SCH (11:46)
[2018-04-07 12:24] LABS: Glucose,Whole Blood 105 mg/dL (75-99)
--- NOTE | 2018-04-07 15:55 | PN ---
PROGRESS NOTE DATE OF SERVICE: 04/07/2018. DATE OF SERVICE: This 47-year-old gentleman admitted with COPD exacerbation also suspected to have pneumonia. The patient is on IV steroids. Pulmonary is following the patient closely. Patient is still complaining of shortness of breath, slightly better. No chest pain or palpitations. PHYSICAL EXAM: Alert and oriented x3. The pulse is 74, blood pressure 149/86, respirations 18, temperature 98 degrees, pulse ox 97% room air. HEENT: Conjunctivae normal. Oral mucosa moist. NECK: No jugular venous distention. No lymph node enlargement. CARDIOVASCULAR: S1 and S2 muffled. LUNGS: Breath sounds diminished at the bases. A few scattered rhonchi and crackles. ABDOMEN: Soft, nontender. NERVOUS SYSTEM: No focal deficits. LABS: WBC 12.2, hemoglobin 13.6. Accu-Cheks 152. ASSESSMENT: 1. Chronic obstructive pulmonary disease acute exacerbation with acute purulent tracheobronchitis, on IV steroids and antibiotics. 2. Possible gram-negative pneumonia, possibly aspiration pneumonia. 3. Possible endocarditis, echo pending. 4. 2 cm pulmonary nodule with smoking history. 5. Continued ongoing alcohol and nicotine dependence. 6. Elevated liver function tests. RECOMMENDATIONS: Continue current management, monitoring, and symptomatic treatment. Otherwise, we will continue to monitor with Pulmonary. Guarded prognosis because of multiple complex medical issues. Further recommendations to follow. MMODL / IJN: [id number] /
[2018-04-07 17:17] LABS: Glucose,Whole Blood 118 mg/dL (75-99)
[2018-04-07] MEDS: LEVOFLOXACIN 750MG-D5W PMX 750 MG in DEXTROSE/WATER 1 150ML.BAG IVPB SCH (20:25)
[2018-04-07 20:36] LABS: Glucose,Whole Blood 173 mg/dL (75-99)
[2018-04-08] MEDS: methylPREDNISolone SOD SUCCI 40 MG/ML 1 ML VIAL IV SCH ×2 (00:18→08:02)
[2018-04-08] MEDS: PIPERACILLIN-TAZOBACTAM 3.375 GM in DEXTROSE/WATER 1 50ML.BAG IVPB SCH ×2 (00:18→08:01)
[2018-04-08] MEDS: FORMOTEROL FUMARATE 20 MCG/2 ML NEBU INHALATION SCH (07:31)
[2018-04-08] MEDS: IPRATROPIUM-ALBUTEROL 3 ML NEB INHALATION SCH ×2 (07:31→11:26)
[2018-04-08] MEDS: BUDESONIDE 1 MG/2 ML NEBU INHALATION SCH (07:31)
[2018-04-08 07:35] LABS: Glucose,Whole Blood 137 mg/dL (75-99)
[2018-04-08 07:52] VITALS: BP 138/58; RESP 18; TEMP 97.9
[2018-04-08] MEDS: PANTOPRAZOLE 40 MG TABLET PO SCH (08:02)
[2018-04-08] MEDS: ENOXAPARIN 40 MG/0.4 ML SYRINGE SQ SCH (08:02)
[2018-04-08] MEDS: NICOTINE 21MG/24HR PATCH TRANSDERM SCH (08:02)
[2018-04-08] MEDS: INSULIN ASPART 100 UNIT/ML 1 ML 10 ML VIAL SQ SCH ×2 (08:02→12:27)
[2018-04-08 11:16] LABS: Glucose,Whole Blood 137 mg/dL (75-99)
[2018-04-08 11:41] VITALS: PULSE 76
[2018-04-08] MEDS: THIAMINE 100 MG TAB PO SCH (12:27)
[2018-04-08] MEDS: MULTIVITAMINS, THERA 1 EACH TAB PO SCH (12:27)
[2018-04-08] MEDS: FOLIC ACID 1 MG TAB PO SCH (12:32)
--- NOTE | 2018-04-08 13:14 | P.PN ---
Subjective Progress Note Date: 04/08/18 Principal diagnosis: Diffuse bilateral infiltrates, related to bilateral pneumonia, acute exacerbation of COPD Jamal is a 47-year-old white male patient of Dr. Campos, who presented to the emergency department on 04/02/2018 at 2200 for evaluation of progressive weakness, shortness of breath, chest congestion, wheezing. Patient states about a week ago he was seen in the emergency department for complaints of cough , shortness of breath, fever, chills. His cough was productive with green sputum. Patient is a current smoker, smokes 1 to 2 packs a day for over 35 years. Patient states he was given a prescription of antibiotics and the rescue inhaler, however after reviewing ER records, it is evident the patient was given oral steroids and Pro-Air inhaler, was referred to see Dr. Christensen and Dr. Nunes in the office, and discharged home. Patient is currently homeless, he states he is been sleeping in the [facility]. He was recently incarcerated for credit card fraud, and released sometime in January. Has a history of other incarcerations for drug charges and peripheral violations. He states he had a PPD test in [facility], which was negative, and he was checked for HIV there and the test was reportedly negative. He does admit to daily EtOH use, he drinks 4-5 24 ounce cans of beer daily, denies any other drug use, no marijuana, no cocaine, no injectable drugs. Does admit to previous use of meth. Patient has never seen a geospatial specialist in the past. He did have previous episodes of pneumonia, for which she was hospitalized, and was supposed to be seen by a violin maker hand, however she never followed up related to his lack of insurance. No other significant medical history, no history of hypertension, no diabetes, no ID. Patient states he does have history of COPD, not on any medications for it. He denies any hemoptysis. He states after he took his prescriptions patient did not get any better, a progressively weaker and short of breath. His initial chest x-ray from 03/26/2018 from his first visit to the ER showed no focal airspace opacity , pleural effusion or pneumothorax. Prominent lung volumes were seen, blunting of the costophrenic angles likely due to hyperinflation, and bronchial wall thickening. CT angios was completed on his second trip to the ER on 04/02/2018 and showed no evidence of pulmonary embolism, extensive bilateral reticular nodular pulmonary infiltrates, and nodules measuring up to 2 cm, mild bronchial adenopathy. Blood work showed WBC of 12.5, hemoglobin of 14.1, INR of 1.0, sodium of 135, chloride is 96, BUN of 10, creatinine 0.54. Plasma lactic acid was 1.5, total bili was 1.4, AST was 65, ALT was 78, CK-MB was 2.9, troponin was negative 1. EKG showed normal sinus rhythm, minimal voltage criteria for LVH. Patient was started on empiric antibiotics in the form of Zithromax, bronchodilators, and admitted for further management. We are asked to see the patient in consultation for abnormal findings seen on the CT angios, most likely related to diffuse bilateral nodular infiltrates related to pneumonia. Possibility of endocarditis has to be ruled out, an echocardiogram has been ordered. On 04 05 2018 patient seen in follow-up on medical surgical floor. He states his breathing is easier today, lung sounds are positive for diffuse wheezes, seems to have improved from yesterday. No fever, no chills, no sweats. Pulse ox on 2 L per nasal cannula is 99%, patient is afebrile, not bringing up much sputum, blood culture showed no growth at the 48 hour doug, sputum culture is pending. Yesterday we place the patient on combination of Zosyn and Levaquin for possibility of aspiration pneumonia or gram-negative pneumonia. Urine drug screen was negative, Legionella urine antigen is still pending. Patient continues on IV steroids, nebulized bronchodilators, he is improving. Yesterday were ordered echocardiogram to rule out a possibility of endocarditis , awaiting the results. On 04/07/2018 patient seen in follow-up on medical surgical floor. He continues to improve, less short of breath, less wheezy. Lung sounds V wheezing on forced exhale maneuver, overall much less bronchospastic. Room air pulse ox is 97%, patient is afebrile, hemodynamically stable, visual cough with production of light colored phlegm. Blood cultures remain negative at the 96 hour doug, sputum culture showed many respiratory natasha. Patient has been treated with a combination of Zosyn and Levaquin were a possibility of aspiration pneumonia, or gram-negative pneumonia. Clinically improving, tolerating ambulation, so far just in the room. Encourage the patient to increase ambulation today, continue with current medical treatment. On 08/17/2017 patient seen in follow-up on medical surgical floor. Doing much better, continues to improve, breathing easier, today's exam, reveals a few scattered rhonchi, but no significant wheezing. Room air pulse ox, room air pulse ox is 97%, patient is afebrile, patient was treated with comminution Zosyn and Levaquin for possibility of gram-negative pneumonia, versus aspiration pneumonia, microbiology results were reviewed, and sputum culture showed corynebacter pseudotuberculosis, probably contaminant. Clinically patient has improved, and is cleared for discharge home on oral course of antibiotics from pulmonary standpoint. Objective - Vital Signs Vital signs: Vital Signs Temp 97.9 F 04/08/18 07:00 Pulse 76 04/08/18 11:37 Resp 18 04/08/18 07:00 BP 138/58 04/08/18 07:00 Pulse Ox 97 04/08/18 07:00 Intake & Output 04/07/18 04/08/18 04/08/18 18:59 06:59 18:59 Intake Total 720 Balance 720 Intake: Oral 720 Other: Voiding Method Toilet # Voids 2 2 # Bowel Movements 0 - Exam GENERAL EXAM: Alert, pleasant, 47-year-old white male, appears much older than stated age comfortable in no apparent distress. HEAD: Normocephalic/atraumatic. EYES: Normal reaction of pupils, equal size. Conjunctiva pink, sclera white. NOSE: Clear with pink turbinates. THROAT: No erythema or exudates. NECK: No masses, no JVD, no thyroid enlargement, no adenopathy. CHEST: No chest wall deformity. Symmetrical expansion. LUNGS: Diminished, a few scattered rhonchi, no wheezing CVS: Regular rate and rhythm, normal S1 and S2, no gallops, no murmurs, no rubs ABDOMEN: Soft, nontender. No hepatosplenomegaly, normal bowel sounds, no guarding or rigidity. EXTREMITIES: No clubbing, no edema, no cyanosis, 2+ pulses and upper and lower extremities. MUSCULOSKELETAL: Muscle strength and tone normal. SPINE: No scoliosis or deformity SKIN: No rashes CENTRAL NERVOUS SYSTEM: Alert and oriented -3. No focal deficits, tone is normal in all 4 extremities. PSYCHIATRIC: Alert and oriented -3. Appropriate affect. Intact judgment and insight. - Labs CBC & Chem 7: 04/05/18 07:41 04/05/18 07:41 Labs: Abnormal Lab Results - Last 24 Hours (Table) 04/07/18 04/07/18 04/08/18 Range/Units 17:15 20:32 07:21 POC Glucose (mg/dL) 118 H 173 H 137 H (75-99) mg/dL 04/08/18 Range/Units 11:14 POC Glucose (mg/dL) 137 H (75-99) mg/dL Microbiology - Last 24 Hours (Table) 04/02/18 21:50 Blood Culture - Preliminary Blood No Growth after 120 hours 04/04/18 19:30 Gram Stain - Final Sputum Sputum Culture - Final Corynebacter pseudotuberculosi Assessment and Plan Plan: Assessment: #1. Acute exacerbation of chronic obstructive pulmonary disease related to possibility of aspiration pneumonia or gram-negative pneumonia. CT angios showed extensive bilateral reticulonodular pulmonary infiltrates and nodules measuring up to 2 cm with mild bronchial adenopathy. Echocardiogram has been ordered, and is pending at this time, to rule out the possibility of endocarditis. #2. Dyspnea, chest congestion, wheezing, fever secondary to above, improved #3. Chronic and ongoing nicotine dependence, patient smokes one to 2 packs a day for over 35 years #4. Previous episodes of pneumonia #5. Recent history of incarceration, released sometime in January 2018. According to the patient, as per the routine procedure PPD test and HIV tests were completed in [facility], and were both negative #6. EtOH abuse, patient drinks 4-5 ounce cans of beer daily #7. Homelessness #8. Mild elevation of liver enzymes Plan: Patient continues to improve, has been treated with a combination of Zosyn and Levaquin, patient can the discharged home from pulmonary standpoint on 5 day course of oral Levaquin. Prednisone taper, follow up with Dr. Nunes in the office in one week. I performed a history & physical examination of the patient and discussed their management with my nurse practitioner, Larissa Cortez. I reviewed the nurse practitioner's note and agree with the documented findings and plan of care. Lung sounds are positive for diffuse wheezes on forced exhale maneuver, overall less bronchospastic. The findings and the impression was discussed with the patient. I attest to the documentation by the nurse practitioner. Time with Patient: Less than 30
--- NOTE | 2018-04-08 17:22 | DS ---
DISCHARGE SUMMARY DATE OF SERVICE: 04/08/2018 FINAL DIAGNOSES: 1. Chronic obstructive pulmonary disease acute exacerbation with acute tracheobronchitis. 2. Possible gram-negative pneumonia possibly aspiration pneumonia. 3. A 2 cm pulmonary nodule with smoking history. 4. Continued ongoing alcohol and nicotine dependence. 5. Elevated LFTs. DISCHARGE DISPOSITION: The patient is being discharged in stable condition with guarded prognosis. HISTORY OF PRESENT ILLNESS: This 47-year-old gentleman with a past medical history of COPD treated with broad- spectrum IV antibiotics. The patient was treated in conjunction with Dr. Nunes. Patient improved significantly. Patient discharged in stable condition with guarded prognosis with the following advice and medications. On exam, vitals are stable. Cardiovascular: S1, S2. Abdomen: Soft. Nervous System: No focal deficits. DISCHARGE ADVICE AND MEDICATIONS: 1. Diet is cardiac. 2. Activity limited until followup. 3. Medications are: ProAir 2 puffs q.i.d. p.r.n. 4. Symbicort 160/4.5 two puffs b.i.d. 5. Folic acid 1 mg p.o. 6. DuoNeb q.i.d. and p.r.n. 7. Levaquin 750 mg p.o. q.h.s. for 5 days. 8. Multivitamins. 9. Habitrol 21 daily. 10.Protonix 40 mg b.i.d. 11.Thiamine 100 mg p.o. b.i.d. 12.Prednisone taper. Once again, the patient is being discharged with stable condition with guarded prognosis. MMODL / IJN: [id number] /
[2018-04-08] MEDS ORDERED: LEVOFLOXACIN 750 MG TAB PO SCH (21:00)
--- NOTE | 2018-04-09 10:44 | ECHOF ---
Referral Reason:look for endocarditis MEASUREMENTS -------- HEIGHT: 170.2 cm WEIGHT: 81.6 kg BP: IVSd: 0.9 cm (0.6 - 1.1) LVIDd: 4.5 cm (3.9 - 5.3) LVPWd: 1.0 cm (0.6 - 1.1) IVSs: 1.3 cm LVIDs: 3.5 cm LVPWs: 1.0 cm LAESV Index (A-L): 26.03 ml/m Ao Diam: 3.7 cm (2.0 - 3.7) AV Cusp: 1.8 cm (1.5 - 2.6) LA Diam: 3.3 cm (2.7 - 3.8) MV EXCURSION: 24.295 mm (> 18.000) MV EF SLOPE: 146 mm/s (70 - 150) EPSS: 0.7 cm MV E Gallito: 1.03 m/s MV DecT: 202 ms MV A Gallito: 0.84 m/s MV E/A Ratio: 1.22 RAP: 5.00 mmHg RVSP: 41.96 mmHg FINDINGS -------- Sinus rhythm. This was a technically good study. LV size, wall thickness and systolic function are normal, with an EF greater than 55%. The left zeus tricular size is normal. The right ventricle is normal in size. The left atrial size is normal. The right atrial size is normal. There is mild aortic valve sclerosis. Trace amount of aortic regurgitation. Mild mitral annular calcification present. Mild mitral regurgitation is present. Mild tricuspid regurgitation present. There is no evidence of pulmonary hypertension. The right v entricular systolic pressure, as measured by Doppler, is 41.96mmHg. There is no pulmonic regurgitation present. The aortic root size is normal. There is no pericardial effusion. CONCLUSIONS -------- 1. LV size, wall thickness and systolic function are normal, with an EF greater than 55%. 2. The left ventricular size is normal. 3. The right ventricle is normal in size. 4. The left atrial size is normal. 5. The right atrial size is normal. 6. There is mild aortic valve sclerosis. 7. Trace amount of aortic regurgitation. 8. Mild mitral annular calcification present. 9. Mild mitral regurgitation is present. 10. Mild tricuspid regurgitation present. 11. There is no evidence of pulmonary hypertension. 12. The right ventricular systolic pressure, as measured by Doppler, is 41.96mmHg. 13. There is no pulmonic regurgitation present. 14. The aortic root size is normal. 15. There is no pericardial effusion. SPIKEMAKING SUPERVISOR: Asha Romero RDCS
--- NOTE | 2018-04-10 12:46 | CDI ---
Last Revision, June 2017 Documentation Clarification Form Date: 04/10/18 From: Anyi Dueñas Phone: If you have a question regarding this query, please contact Cara Murillo at [phone] between 8am and 5pm. Admit Date: 04/02/2018 11:37:00 PM Patient Name: Jamal Mccarthy Visit Number: [id number] Discharge Date: 04/08/18 ATTENTION: The Clinical Documentation Specialists (CDI) and [facility] Coding Staff appreciate your assistance in clarifying documentation. Please respond to the clarification below the line at the bottom and electronically sign. The CDI & [facility] Coding staff will review the response and follow-up if needed. Please note: Queries are made part of the Legal Health Record. If you have any questions, please contact the author of this message via ITS. Desi Cooper MD Possibilty of endocarditis has to be ruled out is documented in your consult note and 04/04 thru 04/07 progress notes. Patient history/risk factors: Patient has a history of COPD and was admitted for COPD exacerbation and pneumonia. Clinical Indicators: Shortness of breath. Echocardiogram findings: LV size, wall thickness and systolic function are normal with an EF greater than 55%. Mild aortic valve sclerosis. Trace amount of aortic regurgitation. Mild mitral annular calcification present. Mild mitral regrugitation. Mild tricuspid regurgitation. No evidence of pulmonary hypertension. RV systolic pressure, as measured by Doppler is 41.96 mmHg. No pulmonic regurgitation present. Aortic root size is normal. No pericardial effusion. In your professional opinion, can you please clarify if endocarditis is? Ruled In Ruled Out Other, please specify Unable to determine MTDD
--- NOTE | 2018-04-16 14:50 | CDI ---
Last Revision, June 2017 Documentation Clarification Form Date: 04/16/18 From: Anyi Dueñas Phone: If you have a question regarding this query, please contact Cara Murillo at [phone] between 8am and 5pm. Admit Date: 04/02/2018 11:37:00 PM Patient Name: Jamal Mccarthy Visit Number: [id number] Discharge Date: 04/08/18 ATTENTION: The Clinical Documentation Specialists (CDI) and [facility] Coding Staff appreciate your assistance in clarifying documentation. Please respond to the clarification below the line at the bottom and electronically sign. The CDI & [facility] Coding staff will review the response and follow-up if needed. Please note: Queries are made part of the Legal Health Record. If you have any questions, please contact the author of this message via ITS. Dr. Shira Poon MD Possibilty of endocarditis has to be ruled out is documented in the consult note and 04/04 thru 04/07 consult progress notes. Patient history/risk factors: Patient has a history of COPD and was admitted for COPD exacerbation and pneumonia. Clinical Indicators: Shortness of breath. Echocardiogram findings: LV size, wall thickness and systolic function are normal with an EF greater than 55%. Mild aortic valve sclerosis. Trace amount of aortic regurgitation. Mild mitral annular calcification present. Mild mitral regrugitation. Mild tricuspid regurgitation. No evidence of pulmonary hypertension. RV systolic pressure, as measured by Doppler is 41.96 mmHg. No pulmonic regurgitation present. Aortic root size is normal. No pericardial effusion. In your professional opinion, can you please clarify if endocarditis is? Ruled In Ruled Out Other, please specify Unable to determine MTDD
--- NOTE | 2018-04-16 15:08 | CDI ---
Last Revision, June 2017 Documentation Clarification Form Date: 04/10/2018 12:46:00 PM From: Anyi Dueñas Phone: Admit Date: 04/02/2018 11:37:00 PM Patient Name: Jamal Mccarthy Visit Number: [id number] Discharge Date: ATTENTION: The Clinical Documentation Specialists (CDI) and [facility] Coding Staff appreciate your assistance in clarifying documentation. Please respond to the clarification below the line at the bottom and electronically sign. The CDI & [facility] Coding staff will review the response and follow-up if needed. Please note: Queries are made part of the Legal Health Record. If you have any questions, please contact the author of this message via ITS. Dr. Desi Nunes MD Possibilty of endocarditis has to be ruled out is documented in your consult note and 04/04 thru 04/07 progress notes. Patient history/risk factors: Patient has a history of COPD and was admitted for COPD exacerbation and pneumonia. Clinical Indicators: Shortness of breath. Echocardiogram findings: LV size, wall thickness and systolic function are normal with an EF greater than 55%. Mild aortic valve sclerosis. Trace amount of aortic regurgitation. Mild mitral annular calcification present. Mild mitral regrugitation. Mild tricuspid regurgitation. No evidence of pulmonary hypertension. RV systolic pressure, as measured by Doppler is 41.96 mmHg. No pulmonic regurgitation present. Aortic root size is normal. No pericardial effusion. In your professional opinion, can you please clarify if endocarditis is? Ruled In Ruled Out Other, please specify Unable to determine MTDD
--- NOTE | 2018-04-24 15:27 | CDI ---
Last Revision, June 2017 Documentation Clarification Form Date: 04/24/18 From: Anyi Dueñas Phone: If you have a question regarding this query, please contact Cara Murillo at [phone] between 8am and 5pm. Admit Date: 04/02/2018 11:37:00 PM Patient Name: Jamal Mccarthy Visit Number: [id number] Discharge Date: 04/08 ATTENTION: The Clinical Documentation Specialists (CDI) and [facility] Coding Staff appreciate your assistance in clarifying documentation. Please respond to the clarification below the line at the bottom and electronically sign. The CDI & [facility] Coding staff will review the response and follow-up if needed. Please note: Queries are made part of the Legal Health Record. If you have any questions, please contact the author of this message via ITS. Desi Sanders MD Thank you for signing your previous query. Please document a response before signing this query. Possibility of endocarditis has to be ruled out is documented in your consult note and 04/04 thru 04/07 progress notes. Patient history/risk factors: Patient has a history of COPD and was admitted for COPD exacerbation and pneumonia. Clinical Indicators: Shortness of breath. Echocardiogram findings: LV size, wall thickness and systolic function are normal with an EF greater than 55%. Mild aortic valve sclerosis. Trace amount of aortic regurgitation. Mild mitral annular calcification present. Mild mitral regrugitation. Mild tricuspid regurgitation. No evidence of pulmonary hypertension. RV systolic pressure, as measured by Doppler is 41.96 mmHg. No pulmonic regurgitation present. Aortic root size is normal. No pericardial effusion. In your professional opinion, can you please clarify if endocarditis is? Ruled In Ruled Out Other, please specify Unable to determine MTDD
== END 2018-04-08 15:27 | disposition home or self-care (01) | DRG 190 ==
LOC: EC 21:19 → 4MS4W 23:37
PROVIDERS: ADMIT Hospitalist; ATTEND Hospitalist
DX: J44.0 Chronic obstructive pulmonary disease with (acute) lower respiratory infection (principal); J15.6 Pneumonia due to other Gram-negative bacteria; J69.0 Pneumonitis due to inhalation of food and vomit; J44.1 Chronic obstructive pulmonary disease with (acute) exacerbation; F17.210 Nicotine dependence, cigarettes, uncomplicated; J20.9 Acute bronchitis, unspecified; R09.02 Hypoxemia; R74.8 Abnormal levels of other serum enzymes; R59.9 Enlarged lymph nodes, unspecified; R91.1 Solitary pulmonary nodule; Z59.0 Homelessness; Z87.01 Personal history of pneumonia (recurrent)
CPT/HCPCS: 36415; 71275; 80048; 80053; 80074; 80306; 82550; 82553; 83036; 83605; 83735; 84484; 85025; 85610; 85730; 87040; 87070; 87205; 87449; 93005; 93306; 94640; 94760; 96365; 96366; 96375; 99285

== ENCOUNTER 2018-04-24 09:23 | Emergency (ER) | payer OTHER ==
[2018-04-24] MEDS ORDERED: methylPREDNISolone SOD SUCCI 125 MG/2 ML VIAL IV STA (09:36)
[2018-04-24] MEDS ORDERED: SODIUM CHLORIDE 0.9% 500 ML IV STA (09:36)
[2018-04-24] MEDS ORDERED: IPRATROPIUM-ALBUTEROL 3 ML NEB INHALATION STA (09:36)
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
[2018-04-24 10:05] LABS: Basophils % (A) 0 %; Eosinophils # (A) 0.1 k/uL (0-0.7); Eosinophils % (A) 1 %; HCT 47.8 % (39.0-53.0); Lymphocytes % (A) 22 %; MCH 30.5 pg (25.0-35.0); MCHC 31.5 g/dL (31.0-37.0); MCV 96.7 fL (80.0-100.0); Monocytes # (A) 0.4 k/uL (0-1.0); Monocytes % (A) 5 %; Neutrophils # (A) 6.3 k/uL (1.3-7.7); Neutrophils % (A) 69 %; Platelet Count 183 k/uL (150-450); RBC 4.94 m/uL (4.30-5.90); RDW 13.9 % (11.5-15.5)
[2018-04-24 10:20] LABS: ALT 306 U/L (21-72); AST 221 U/L (17-59); Albumin 3.8 g/dL (3.5-5.0); Alkaline Phosphatase 82 U/L (38-126); Anion Gap 8 mmol/L; Blood Urea Nitrogen 6 mg/dL (9-20); Calcium 8.2 mg/dL (8.4-10.2); Carbon Dioxide 30 mmol/L (22-30); Chloride 106 mmol/L (98-107); Glucose 79 mg/dL (74-99); Sodium 144 mmol/L (137-145); Total Bilirubin 0.6 mg/dL (0.2-1.3)
--- NOTE | 2018-04-24 10:52 | XR ---
EXAMINATION TYPE: XR chest 2V DATE OF EXAM: 04/24/2018 COMPARISON: 03/26/2018 HISTORY: 47 year-old male shortness of breath for 2 days, difficulty breathing TECHNIQUE: Frontal and lateral views FINDINGS: Heart normal size. Aorta and pulmonary vasculature within normal limits. Mild peribronchial cuffing i s noted. Strandy atelectasis lower lungs. Hyperinflation. No consolidation or pleural effusion. IMPRESSION: COPD. Peribronchial cuffing could represent a prominent component of chronic bronchitis or superimpos ed acute bronchitis.
[2018-04-24 10:53] VITALS: RESP 17
[2018-04-24] MEDS ORDERED: ALBUTEROL NEBULIZED 2.5 MG/3 ML INHALATION STA (11:02)
[2018-04-24 12:47] VITALS: BP 114/57; PULSE 95; TEMP 99
== END 2018-04-24 12:47 | disposition home or self-care (01) ==
LOC: EC 09:23
DX: J44.1 Chronic obstructive pulmonary disease with (acute) exacerbation (principal); R79.89 Other specified abnormal findings of blood chemistry; F17.200 Nicotine dependence, unspecified, uncomplicated
CPT/HCPCS: 36415; 71046; 80053; 83735; 84484; 85025; 93005; 94640; 96361; 96374; 99285

== ENCOUNTER 2018-05-07 14:00 | Emergency (ER) | payer OTHER ==
[2018-05-07 14:10] VITALS: BP 111/57; PULSE 104; RESP 14; TEMP 98.6
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
== END 2018-05-07 14:30 | disposition home or self-care (01) ==
LOC: EC 14:00
DX: Z02.89 Encounter for other administrative examinations (principal); F10.120 Alcohol abuse with intoxication, uncomplicated; J44.9 Chronic obstructive pulmonary disease, unspecified; F17.200 Nicotine dependence, unspecified, uncomplicated
CPT/HCPCS: 99284

== ENCOUNTER 2018-06-01 09:47 | Inpatient (IN) | payer OTHER ==
[2018-06-01] MEDS ORDERED: ACETAMINOPHEN TAB 500 MG TAB PO STA (10:16)
[2018-06-01] MEDS ORDERED: IBUPROFEN 600 MG TAB PO STA (10:16)
[2018-06-01] MEDS ORDERED: methylPREDNISolone SOD SUCCI 125 MG/2 ML VIAL IV STA (10:18)
[2018-06-01] MEDS ORDERED: IPRATROPIUM-ALBUTEROL 3 ML NEB INHALATION STA (10:18)
--- NOTE | 2018-06-01 10:22 | ED ---
SOB HPI - General Chief Complaint: Shortness of Breath Stated Complaint: DANY Time Seen by Provider: 06/01/18 09:54 Source: patient, EMS, RN notes reviewed, old records reviewed Mode of arrival: EMS Limitations: no limitations - History of Present Illness Initial Comments: Patient is a 47-year-old male persist emergency department today with chief complaint of increasing shortness of breath cough wheezing and fevers. Patient was seen by PCP started on steroids and nebulizer treatments. He uses earlier this week. No recent antibiotics. Ears the emergency department today with severe coughing episode. He states he just does not feel well. Increased sputum production. He has a history of COPD, and reports change in sputum color from yellow to green. Patient denies any nausea or vomiting. Patient states that he does feel somewhat better after he arrived via EMS after they gave him a DuoNeb breathing treatment. - Related Data Home Medications Medication Instructions Recorded Confirmed Albuterol Sulfate [Proair Hfa] 2 puff INHALATION RT-Q4H PRN 04/02/18 05/07/18 Previous Rx's Medication Instructions Recorded Budesonide-Formot 160-4.5 Mcg 2 puff INHALATION BID #1 inhaler 04/08/18 [Symbicort 160-4.5 Mcg Inhaler] Folic Acid 1 mg PO DAILY@1200 #30 tab 04/08/18 Ipratropium-Albuterol Nebulize 3 ml INHALATION RT-QID #120 04/08/18 [Duoneb 0.5 mg-3 mg/3 ml Soln] ampul.neb Multivitamins, Thera [Multivitamin 1 each PO DAILY@1200 #30 tab 04/08/18 (formulary)] Pantoprazole [Protonix] 40 mg PO AC-BRKFST #30 tablet. 04/08/18 Thiamine [Vitamin B-1] 100 mg PO DAILY@1200 #30 tab 04/08/18 Allergies Allergy/AdvReac Type Severity Reaction Status Date / Time No Known Allergies Allergy Verified 04/24/18 09:31 Review of Systems ROS Statement: Those systems with pertinent positive or pertinent negative responses have been documented in the HPI. ROS Other: All systems not noted in ROS Statement are negative. Past Medical History Past Medical History: COPD Additional Past Medical History / Comment(s): emphysema History of Any Multi-Drug Resistant Organisms: None Reported Past Surgical History: No Surgical Hx Reported Past Psychological History: No Psychological Hx Reported Smoking Status: Current every day smoker Past Alcohol Use History: Abuse Past Drug Use History: None Reported General Exam - General Exam Comments Initial Comments: This is a 47-year-old male. Patient is alert and oriented 3. Patient appears in no significant distress. Limitations: no limitations General appearance: alert, in no apparent distress Head exam: Present: atraumatic, normocephalic, normal inspection Eye exam: Present: normal appearance, PERRL, EOMI. Absent: scleral icterus, conjunctival injection, periorbital swelling ENT exam: Present: normal exam Neck exam: Present: normal inspection. Absent: tenderness, meningismus, lymphadenopathy Respiratory exam: Present: wheezes, decreased breath sounds, prolonged expiratory. Absent: normal lung sounds bilaterally, respiratory distress, rales , rhonchi, stridor Cardiovascular Exam: Present: normal rhythm, tachycardia, normal heart sounds. Absent: regular rate, systolic murmur, diastolic murmur, rubs, gallop, clicks GI/Abdominal exam: Present: soft, normal bowel sounds. Absent: distended, tenderness, guarding, rebound, rigid Extremities exam: Present: normal inspection, full ROM, normal capillary refill. Absent: tenderness, pedal edema, joint swelling, calf tenderness Back exam: Present: normal inspection Neurological exam: Present: alert, oriented X3, CN II-XII intact Psychiatric exam: Present: normal affect, normal mood Course Vital Signs 06/01/18 06/01/18 06/01/18 09:50 10:39 10:55 Temperature 100.6 F H Pulse Rate 125 H 120 H 116 H Respiratory 30 H Rate Blood Pressure 136/88 O2 Sat by Pulse 95 Oximetry 06/01/18 12:30 Temperature Pulse Rate 73 Respiratory 25 H Rate Blood Pressure 106/67 O2 Sat by Pulse 97 Oximetry Medical Decision Making - Medical Decision Making Patient is a 47-year-old male, smoker with history of COPD presents emergency department today with increased shortness of breath cough congestion. He was started on steroids by his PCP 3 days ago but reports it's been progressively worse. He was not on antibiotics. He recommended to emergency department with a fever, tripod position with significant decrease in lung sounds. Patient was given Motrin Tylenol, and IV fluids. We'll sepsis protocol was initiated. He does have a normal lactic acid. He does have a mildly elevated white blood cell count of 18.6. This could be reflective due to his steroid use. I did give the Patient a dose of do not and IV Solu-Medrol. He discontinued reports similar symptoms but he is noted to be very short of breath and still wheezing. At this time would like to make the Patient with diagnoses COPD exacerbation, and does meet sepsis criteria. Patient will be admitted at this time. - Lab Data Result diagrams: 06/01/18 10:32 06/01/18 10:32 Lab Results 06/01/18 06/01/18 06/01/18 Range/Units 10:32 10:32 10:32 WBC 18.4 H (3.8-10.6) k/uL RBC 4.67 (4.30-5.90) m/uL Hgb 14.8 (13.0-17.5) gm/dL Hct 44.2 (39.0-53.0) % MCV 94.6 (80.0-100.0) fL MCH 31.6 (25.0-35.0) pg MCHC 33.4 (31.0-37.0) g/dL RDW 13.8 (11.5-15.5) % Plt Count 255 (150-450) k/uL Neutrophils % 88 % Lymphocytes % 5 % Monocytes % 6 % Eosinophils % 0 % Basophils % 0 % Neutrophils # 16.2 H (1.3-7.7) k/uL Lymphocytes # 0.8 L (1.0-4.8) k/uL Monocytes # 1.1 H (0-1.0) k/uL Eosinophils # 0.1 (0-0.7) k/uL Basophils # 0.0 (0-0.2) k/uL PT (9.0-12.0) sec INR (<1.2) APTT (22.0-30.0) sec Sodium 137 (137-145) mmol/L Potassium 3.9 (3.5-5.1) mmol/L Chloride 101 (98-107) mmol/L Carbon Dioxide 27 (22-30) mmol/L Anion Gap 9 mmol/L BUN 4 L (9-20) mg/dL Creatinine 0.51 L (0.66-1.25) mg/dL Est GFR (CKD-EPI)AfAm >90 (>60 ml/min/1.73 sqM) Est GFR (CKD-EPI)NonAf >90 (>60 ml/min/1.73 sqM) Glucose 101 H (74-99) mg/dL Plasma Lactic Acid Nate 1.7 (0.7-2.0) mmol/L Calcium 9.1 (8.4-10.2) mg/dL Total Bilirubin 0.8 (0.2-1.3) mg/dL AST 52 (17-59) U/L ALT 64 (21-72) U/L Alkaline Phosphatase 76 (38-126) U/L Troponin I (0.000-0.034) ng/mL Total Protein 7.1 (6.3-8.2) g/dL Albumin 3.8 (3.5-5.0) g/dL 06/01/18 06/01/18 Range/Units 10:32 10:32 WBC (3.8-10.6) k/uL RBC (4.30-5.90) m/uL Hgb (13.0-17.5) gm/dL Hct (39.0-53.0) % MCV (80.0-100.0) fL MCH (25.0-35.0) pg MCHC (31.0-37.0) g/dL RDW (11.5-15.5) % Plt Count (150-450) k/uL Neutrophils % % Lymphocytes % % Monocytes % % Eosinophils % % Basophils % % Neutrophils # (1.3-7.7) k/uL Lymphocytes # (1.0-4.8) k/uL Monocytes # (0-1.0) k/uL Eosinophils # (0-0.7) k/uL Basophils # (0-0.2) k/uL PT 9.8 (9.0-12.0) sec INR 1.0 (<1.2) APTT 22.4 (22.0-30.0) sec Sodium (137-145) mmol/L Potassium (3.5-5.1) mmol/L Chloride (98-107) mmol/L Carbon Dioxide (22-30) mmol/L Anion Gap mmol/L BUN (9-20) mg/dL Creatinine (0.66-1.25) mg/dL Est GFR (CKD-EPI)AfAm (>60 ml/min/1.73 sqM) Est GFR (CKD-EPI)NonAf (>60 ml/min/1.73 sqM) Glucose (74-99) mg/dL Plasma Lactic Acid Nate (0.7-2.0) mmol/L Calcium (8.4-10.2) mg/dL Total Bilirubin (0.2-1.3) mg/dL AST (17-59) U/L ALT (21-72) U/L Alkaline Phosphatase (38-126) U/L Troponin I <0.012 (0.000-0.034) ng/mL Total Protein (6.3-8.2) g/dL Albumin (3.5-5.0) g/dL 06/01/18 12:42 EKG performed at 1112 shows sinus tachycardia possible left atrial. Borderline EKG. Jugular rate of 108 bpm. Intervals and 20 ms. QRS duration 88 ms. QT QTc is 3:30/442 ms. - Radiology Data Radiology results: report reviewed COPD changes. Disposition Clinical Impression: COPD exacerbation, Sepsis Disposition: ADMITTED IP TO THIS HOSP Condition: Stable Is patient prescribed a controlled substance at d/c from ED?: No Referrals: Zackery Campos MD [Primary Care Provider] - 1-2 days Time of Disposition: 12:55
[2018-06-01] MEDS: SODIUM CHLORIDE 0.9% 1,000 ML IV SCH ×2 (10:42→21:50)
[2018-06-01] MEDS: SODIUM CHLORIDE 0.9% 500 ML 500 ML IV SCH ×4 (10:49→13:53)
[2018-06-01 10:57] LABS: Basophils % (A) 0 %; Eosinophils # (A) 0.1 k/uL (0-0.7); Eosinophils % (A) 0 %; HCT 44.2 % (39.0-53.0); HGB 14.8 gm/dL (13.0-17.5); Lymphocytes # (A) 0.8 k/uL (1.0-4.8); Lymphocytes % (A) 5 %; MCH 31.6 pg (25.0-35.0); MCHC 33.4 g/dL (31.0-37.0); MCV 94.6 fL (80.0-100.0); Mean Platelet Volume 7.6; Monocytes # (A) 1.1 k/uL (0-1.0); Monocytes % (A) 6 %; Neutrophils # (A) 16.2 k/uL (1.3-7.7); Neutrophils % (A) 88 %; Platelet Count 255 k/uL (150-450); RBC 4.67 m/uL (4.30-5.90); RDW 13.8 % (11.5-15.5); WBC 18.4 k/uL (3.8-10.6)
[2018-06-01 11:04] LABS: ALT 64 U/L (21-72); AST 52 U/L (17-59); Albumin 3.8 g/dL (3.5-5.0); Alkaline Phosphatase 76 U/L (38-126); Anion Gap 9 mmol/L; Blood Urea Nitrogen 4 mg/dL (9-20); Calcium 9.1 mg/dL (8.4-10.2); Carbon Dioxide 27 mmol/L (22-30); Chloride 101 mmol/L (98-107); Glucose 101 mg/dL (74-99); Potassium 3.9 mmol/L (3.5-5.1); Sodium 137 mmol/L (137-145); Total Bilirubin 0.8 mg/dL (0.2-1.3); Total Protein 7.1 g/dL (6.3-8.2)
[2018-06-01 11:06] LABS: Partial Thromboplastin Time 22.4 sec (22.0-30.0); Prothrombin Time 9.8 sec (9.0-12.0)
--- NOTE | 2018-06-01 11:29 | XR ---
EXAMINATION TYPE: XR chest 2V DATE OF EXAM: 06/01/2018 HISTORY: Fever. REFERENCE: Previous study dated 04/24/2018. FINDINGS: The lungs are overinflated. The heart is not enlarged. There are chronic increased intersti tial markings. Pleural spaces are clear. IMPRESSION: COPD.
[2018-06-01 13:16] LABS: Appearance,Urine Clear (Clear); Bilirubin,Urine Negative (Negative); Blood,Urine Negative (Negative); Color,Urine Yellow; Glucose,Urine (UA) Negative (Negative); Ketones,Urine 2+ (Negative); Leukocyte Esterase,Urine Negative (Negative); Mucus,Urine Occasional /hpf; Nitrite,Urine Negative (Negative); Protein,Urine 2+ (Negative); RBC,Urine 2 /hpf (0-5); Squamous Epithelial Cell,Urine 1 /hpf (0-4); WBC,Urine 1 /hpf (0-5)
--- NOTE | 2018-06-01 16:24 | P.HPIM ---
History of Present Illness H&P Date: 06/01/18 Chief Complaint: Difficulty in breathing Ms. Mccarthy is a 47-year-old male with a past medical history of COPD coming to the hospital with a chief complaints of difficulty in breathing, fevers for the past 2 days. Patient states that he was seen by his PCP and started on steroids and nebulizer treatments but patient did not show any improvement. He was not started on any antibiotics. Patient states that he did not have his nebulizer with him for the past few days and so has not been getting the breathing treatments that he is supposed to which made his breathing more worse and made him come to the ED. Patient also complains of increased productive fraction that is green in color. Patient is an active smoker smoking for the past 20 years almost 1 pack per day. Patient denies having any chest pain or palpitations. No abdominal pain nausea vomiting or diarrhea. No dysuria or hematuria. She denies having any headaches blurring of vision or slurring of speech. No loss of consciousness. No lower extremity edema, orthopnea or PND. In the ED, the patient was found to have a fever tachycardia tachypnea. He had a chest x-ray showing chronic increased interstitial markings. Laboratory data showed leukocytosis. Patient has been admitted for acute exacerbation of COPD. Review of Systems REVIEW OF SYSTEMS: PSYCH: N anxiety or depression NEURO:No c/o weakness of the extremties, No facial droop, No speech abnormalities. VASCULAR: Peripheral nervous system within the normal limits no edema HEMATOLOGIC: No history of easy bleeding and bruising . No recent infections . RESPIRATORY: As per HPI IMMUNE: No infections INTEGUMENT: no rashes OPHTHALMOLOGIC: No blurry vision and no eye discharge : No dysuria or hematuria CARDIAC: No chest pain , shortness of breath , paroxysmal nocturnal dyspnea MUSCULOSKELETAL : No Aches or pains in the joints or muscles. GI: No abdominal pain, Nausea or vomiting. No constipation or diarrhea. 13 review of systems Gen. negative except for the ones mentioned above. Past Medical History Past Medical History: COPD Additional Past Medical History / Comment(s): emphysema History of Any Multi-Drug Resistant Organisms: None Reported Past Surgical History: No Surgical Hx Reported Past Anesthesia/Blood Transfusion Reactions: No Reported Reaction Past Psychological History: No Psychological Hx Reported Smoking Status: Current every day smoker Past Alcohol Use History: Abuse Past Drug Use History: None Reported Medications and Allergies Home Medications Medication Instructions Recorded Confirmed Type Albuterol Sulfate [Proair Hfa] 2 puff INHALATION RT-Q4H PRN 04/02/18 06/01/18 History Budesonide-Formot 160-4.5 Mcg 2 puff INHALATION BID #1 inhaler 04/08/18 Rx [Symbicort 160-4.5 Mcg Inhaler] Allergies Allergy/AdvReac Type Severity Reaction Status Date / Time No Known Allergies Allergy Verified 06/01/18 15:45 Physical Exam Vitals: Vital Signs Temp Pulse Pulse Resp BP BP Pulse Ox 06/01/18 14:38 98.1 F 90 18 127/80 95 06/01/18 13:30 92 20 136/90 97 06/01/18 12:50 28 H 06/01/18 12:30 73 25 H 106/67 97 06/01/18 10:55 116 H 06/01/18 10:39 120 H 06/01/18 09:50 100.6 F H 125 H 30 H 136/88 95 Intake and Output 06/01/18 06/01/18 06/01/18 06:59 14:59 22:59 Other: Voiding Method Toilet Weight 76.204 kg GENERAL EXAM GEN. APPEARANCE: alert, in mild respiratory distress HEAD EXAM: atraumatic, normocephalic, normal inspection EYE EXAM: No pallor no icterus ENT EXAM: normal exam, mucous membranes moist NECK EXAM: No thyromegaly no JVD RESPIRATORY EXAM: Decreased breath sounds in all lung murry. Bilateral end- expiratory wheeze. CARDIOVASCULAR EXAM: Tachycardia. S1-S2 heard GI/ABDOMINAL EXAM: soft, normal bowel sounds. Absent: distended, tenderness, guarding, rebound, rigid EXTREMITIES EXAM: normal inspection, full ROM, normal capillary refill. Absent : tenderness, pedal edema, joint swelling, calf tenderness NEUROLOGICAL EXAM: alert, oriented X3, no focal neurological deficits PSYCHIATRIC EXAM: normal affect, normal mood SKIN EXAM: Patient has been sweating Results CBC & Chem 7: 06/01/18 10:32 06/01/18 10:32 Labs: Abnormal Lab Results - Last 24 Hours (Table) 06/01/18 06/01/18 06/01/18 Range/Units 10:32 10:32 12:15 WBC 18.4 H (3.8-10.6) k/uL Neutrophils # 16.2 H (1.3-7.7) k/uL Lymphocytes # 0.8 L (1.0-4.8) k/uL Monocytes # 1.1 H (0-1.0) k/uL BUN 4 L (9-20) mg/dL Creatinine 0.51 L (0.66-1.25) mg/dL Glucose 101 H (74-99) mg/dL Urine Protein 2+ H (Negative) Urine Ketones 2+ H (Negative) Urine Mucus Occasional H (None) /hpf Thrombosis Risk Factor Assmnt - Choose All That Apply Any of the Below Risk Factors Present?: Yes Each Factor Represents 1 point: Abnormal pulmonary function (COPD), Age 41-60 years, Obesity (BMI >25) Other Risk Factors: No Other congenital or acquired thrombophilia - If yes, enter type in comment: No Thrombosis Risk Factor Assessment Total Risk Factor Score: 3 Thrombosis Risk Factor Assessment Level: Moderate Risk Assessment and Plan Assessment: Sepsis secondary to come into acquired pneumonia Acute exacerbation of COPD secondary to above Chronic nicotine dependence Plan: Patient to be continued on ceftriaxone and azithromycin for community acquired pneumonia. Continue with Solu-Medrol and breathing treatments. Nicotine patch for smoking cessation. Further recommendations to follow depending on the progress of the patient.
[2018-06-01] MEDS: methylPREDNISolone SOD SUCCI 125 MG/2 ML VIAL IV SCH (17:12)
[2018-06-01] MEDS: ENOXAPARIN 40 MG/0.4 ML SYRINGE SQ SCH (17:12)
[2018-06-01] MEDS: IPRATROPIUM-ALBUTEROL 3 ML NEB INHALATION PRN ×2 (17:25→20:59)
[2018-06-01 18:06] LABS: Glucose,Whole Blood 187 mg/dL (75-99)
[2018-06-01] MEDS: INSULIN ASPART 100 UNIT/ML 1 ML 10 ML VIAL SQ SCH ×2 (18:06→21:49)
[2018-06-01 18:10] LABS: ABG Base Excess -0.2 mmol/L; ABG HCO3 26 mmol/L (21-25); ABG Oxygen Saturation 94.6 % (94-97); ABG PCO2 54 mmHg (35-45); ABG PH 7.29 (7.35-7.45); ABG PO2 84 mmHg (83-108); ABG TCO2 28 mmol/L (19-24)
[2018-06-01] MEDS ORDERED: ALPRAZolam 0.25 MG TAB PO PRN (19:19)
--- NOTE | 2018-06-01 19:55 | P.CNPUL ---
History of Present Illness Consult date: 06/01/18 Reason for consult: COPD Chief complaint: Shortness of breath, cough and wheezing History of present illness: This is a 47-year-old white male, at least a [id number] smoker, known history of COPD, presented to the hospital with 2 days history of shortness of breath, cough, wheezing. And fevers. Patient saw his primary care physician recently and he was started on prednisone he was also given updrafts, however he has not been getting any better. His cough is described as productive with greenish phlegm, intermittent episodes of fever, shortness of breath cough and wheezing. No chest pain, no hemoptysis, no palpitations, no nausea no vomiting no abdominal pain, no melena no hematemesis no dysuria and no frequency no urgency. Chest x-ray showed no evidence of infiltrate. CBC showed leukocytosis with WBC count of 18.4. His ABG showed a pO2 of 84 pCO2 of 54 pH of 7.29, and this was on 4 L nasal cannula. Basic metabolic profile was noted to be normal. After evaluating the patient, I recommended that we continue with bronchodilators, recommended BiPAP, and FiO2 to be titrated to a sat above 90%. Review of Systems 14 point review of systems were obtained, please refer to pertinent positives in HPI, otherwise remaining systems are negative. Past Medical History Past Medical History: COPD Additional Past Medical History / Comment(s): emphysema History of Any Multi-Drug Resistant Organisms: None Reported Past Surgical History: No Surgical Hx Reported Past Anesthesia/Blood Transfusion Reactions: No Reported Reaction Past Psychological History: No Psychological Hx Reported Smoking Status: Current every day smoker Past Alcohol Use History: Abuse Past Drug Use History: None Reported Medications and Allergies Home Medications Medication Instructions Recorded Confirmed Type Albuterol Sulfate [Proair Hfa] 2 puff INHALATION RT-Q4H PRN 04/02/18 06/01/18 History Budesonide-Formot 160-4.5 Mcg 2 puff INHALATION BID #1 inhaler 04/08/18 Rx [Symbicort 160-4.5 Mcg Inhaler] Allergies Allergy/AdvReac Type Severity Reaction Status Date / Time No Known Allergies Allergy Verified 06/01/18 15:45 Physical Exam Vitals: Vital Signs Temp Pulse Pulse Resp BP BP Pulse Ox 06/01/18 17:37 100 06/01/18 17:25 100 06/01/18 14:38 98.1 F 90 18 127/80 95 06/01/18 13:30 92 20 136/90 97 06/01/18 12:50 28 H 06/01/18 12:30 73 25 H 106/67 97 06/01/18 10:55 116 H 06/01/18 10:39 120 H 06/01/18 09:50 100.6 F H 125 H 30 H 136/88 95 Intake and Output 06/01/18 06/01/18 06/01/18 06:59 14:59 22:59 Other: Voiding Method Toilet # Bowel Movements 0 Weight 76.204 kg Physical Exam: Revealed a 47-year-old white male anxious, in mild distress. Head: Atraumatic, normocephalic. HEENT:[Neck is supple.] [No neck masses.] [No thyromegaly.] [No JVD.] PERRLA, EOMI, no icterus. Chest: [Diminished breath sound bilaterally, rhonchi and wheezes noted bilaterally. Symmetrical chest expansion, no chest wall tenderness.] Cardiac Exam: [Normal S1 and S2, no S3 gallop, no murmur.] Abdomen: [Soft, nontender, no megaly, no rebound, no guarding, normal bowel sounds.] Extremities: [No clubbing, no edema, no cyanosis.] Neurological Exam: [No focal neurologic deficit Psychiatric: Slightly anxious otherwise unremarkable, normal mental status examination. Skin: No rashes. Lymphatics: No lymphadenopathy..] Results - Laboratory Findings CBC and BMP: 06/01/18 10:32 06/01/18 10:32 ABG ABG pH 7.29 (7.35-7.45) L 06/01/18 18:00 ABG pCO2 54 mmHg (35-45) H 06/01/18 18:00 ABG pO2 84 mmHg (83-108) 06/01/18 18:00 ABG O2 Saturation 94.6 % (94-97) 06/01/18 18:00 PT/INR, D-dimer PT 9.8 sec (9.0-12.0) 06/01/18 10:32 INR 1.0 (<1.2) 06/01/18 10:32 Abnormal lab findings: Abnormal Labs 06/01/18 06/01/18 06/01/18 10:32 10:32 12:15 WBC 18.4 H Neutrophils # 16.2 H Lymphocytes # 0.8 L Monocytes # 1.1 H ABG pH ABG pCO2 ABG HCO3 ABG Total CO2 BUN 4 L Creatinine 0.51 L Glucose 101 H POC Glucose (mg/dL) Urine Protein 2+ H Urine Ketones 2+ H Urine Mucus Occasional H 06/01/18 06/01/18 18:00 18:04 WBC Neutrophils # Lymphocytes # Monocytes # ABG pH 7.29 L ABG pCO2 54 H ABG HCO3 26 H ABG Total CO2 28 H BUN Creatinine Glucose POC Glucose (mg/dL) 187 H Urine Protein Urine Ketones Urine Mucus - Diagnostic Findings Chest x-ray: image reviewed (COPD, otherwise no evidence of active disease.) Assessment and Plan Assessment: Impression: 1 acute hypercapnic respiratory failure secondary to COPD exacerbation, and purulent tracheobronchitis. 2 acute tracheobronchitis 3 tobacco dependence syndrome 4 generalized anxiety disorder. Recommendation: Patient will be given DuoNeb updrafts 4 times a day and when necessary, Pulmicort and Perforomist updrafts twice a day, Solu-Medrol, antibiotics, would be placed on BiPAP, and will be monitored closely. We'll continue to follow. Continue GI and DVT prophylaxis. Time with Patient: Greater than 30
[2018-06-01] MEDS: guaiFENesin 600 MG TABLET.ER PO SCH (20:15)
[2018-06-01 20:36] LABS: Glucose,Whole Blood 134 mg/dL (75-99)
[2018-06-01] MEDS: BUDESONIDE 0.5 MG/2 ML NEBU INHALATION SCH (20:58)
[2018-06-01] MEDS: SYMBICORT 160-4.5 MCG INHALER INHALATION SCH (20:59)
[2018-06-01] MEDS: PANTOPRAZOLE 40 MG TABLET PO SCH (21:49)
[2018-06-02] MEDS: methylPREDNISolone SOD SUCCI 125 MG/2 ML VIAL IV SCH ×4 (00:16→16:33)
[2018-06-02] MEDS: SODIUM CHLORIDE 0.9% 1,000 ML IV SCH ×2 (05:18→16:33)
[2018-06-02] MEDS: IPRATROPIUM-ALBUTEROL 3 ML NEB INHALATION PRN ×4 (07:38→19:59)
[2018-06-02] MEDS: BUDESONIDE 0.5 MG/2 ML NEBU INHALATION SCH ×2 (07:38→19:59)
[2018-06-02] MEDS: SYMBICORT 160-4.5 MCG INHALER INHALATION SCH ×2 (07:39→19:59)
[2018-06-02 08:02] LABS: Glucose,Whole Blood 120 mg/dL (75-99)
[2018-06-02 08:47] LABS: Basophils % (A) 0 %; Eosinophils % (A) 0 %; HCT 45.1 % (39.0-53.0); HGB 14.3 gm/dL (13.0-17.5); Lymphocytes # (A) 0.6 k/uL (1.0-4.8); Lymphocytes % (A) 3 %; MCH 31.6 pg (25.0-35.0); MCHC 31.6 g/dL (31.0-37.0); Mean Platelet Volume 7.8; Monocytes # (A) 0.5 k/uL (0-1.0); Monocytes % (A) 3 %; Neutrophils # (A) 17.2 k/uL (1.3-7.7); Neutrophils % (A) 93 %; Platelet Count 276 k/uL (150-450); RBC 4.52 m/uL (4.30-5.90); WBC 18.4 k/uL (3.8-10.6)
[2018-06-02 08:56] LABS: MCV 99.8 fL (80.0-100.0)
[2018-06-02 09:07] LABS: ALT 52 U/L (21-72); AST 33 U/L (17-59); Albumin 3.2 g/dL (3.5-5.0); Alkaline Phosphatase 69 U/L (38-126); Anion Gap 8 mmol/L; Blood Urea Nitrogen 10 mg/dL (9-20); Carbon Dioxide 26 mmol/L (22-30); Chloride 106 mmol/L (98-107); Glucose 142 mg/dL (74-99); Potassium 4.4 mmol/L (3.5-5.1); Sodium 140 mmol/L (137-145); Total Bilirubin 0.7 mg/dL (0.2-1.3); Total Protein 6.3 g/dL (6.3-8.2)
[2018-06-02] MEDS: INSULIN ASPART 100 UNIT/ML 1 ML 10 ML VIAL SQ SCH ×4 (09:24→22:02)
[2018-06-02] MEDS: PANTOPRAZOLE 40 MG TABLET PO SCH ×2 (09:37→16:33)
[2018-06-02] MEDS: guaiFENesin 600 MG TABLET.ER PO SCH ×2 (09:37→19:54)
[2018-06-02] MEDS: AZITHROMYCIN 500 MG TAB PO SCH (09:37)
[2018-06-02] MEDS: NICOTINE 21MG/24HR PATCH TRANSDERM SCH (09:38)
[2018-06-02] MEDS: ENOXAPARIN 40 MG/0.4 ML SYRINGE SQ SCH (09:38)
--- NOTE | 2018-06-02 11:17 | P.PN ---
Subjective Progress Note Date: 06/02/18 Principal diagnosis: Acute hypercapnic restaurant failure secondary to COPD exacerbation and purulent tracheal bronchitis This is a 47-year-old white male, at least a [id number] smoker, known history of COPD, presented to the hospital with 2 days history of shortness of breath, cough, wheezing. And fevers. Patient saw his primary care physician recently and he was started on prednisone he was also given updrafts, however he has not been getting any better. His cough is described as productive with greenish phlegm, intermittent episodes of fever, shortness of breath cough and wheezing. No chest pain, no hemoptysis, no palpitations, no nausea no vomiting no abdominal pain, no melena no hematemesis no dysuria and no frequency no urgency. Chest x-ray showed no evidence of infiltrate. CBC showed leukocytosis with WBC count of 18.4. His ABG showed a pO2 of 84 pCO2 of 54 pH of 7.29, and this was on 4 L nasal cannula. Basic metabolic profile was noted to be normal. After evaluating the patient, I recommended that we continue with bronchodilators, recommended BiPAP, and FiO2 to be titrated to a sat above 90%. On 06/02/2018 patient seen in follow-up on medical surgical floor. Currently on 3 L per nasal cannula, his pulse ox is 95%, he did wear his BiPAP last night , Pressures 12 and 4, and FiO2 of 30%. His cough is nonproductive, lung sounds are diminished, with faint end expiratory wheezes on forced exhale maneuver. He is afebrile this morning, urine cultures pending. He is on a combination of Zithromax and Rocephin. His IV steroids, nebulized bronchodilators. Objective - Vital Signs Vital signs: Vital Signs Temp 98.1 F 06/02/18 07:00 Pulse 84 06/02/18 07:58 Resp 16 06/02/18 07:00 BP 132/67 06/02/18 07:00 Pulse Ox 95 06/02/18 07:00 Intake & Output 06/01/18 06/02/18 06/02/18 19:59 06:59 18:59 Weight Other: Voiding Method # Bowel Movements - Exam Physical Exam: Revealed a 47-year-old white male anxious, in mild distress. Head: Atraumatic, normocephalic. HEENT:[Neck is supple.] [No neck masses.] [No thyromegaly.] [No JVD.] PERRLA, EOMI, no icterus. Chest: [Diminished breath sound bilaterally, end expirstory wheezes noted bilaterally. Symmetrical chest expansion, no chest wall tenderness.] Cardiac Exam: [Normal S1 and S2, no S3 gallop, no murmur.] Abdomen: [Soft, nontender, no megaly, no rebound, no guarding, normal bowel sounds.] Extremities: [No clubbing, no edema, no cyanosis.] Neurological Exam: [No focal neurologic deficit Psychiatric: Slightly anxious otherwise unremarkable, normal mental status examination. Skin: No rashes. Lymphatics: No lymphadenopathy..] - Labs CBC & Chem 7: 06/02/18 08:27 06/02/18 08:27 Labs: Abnormal Lab Results - Last 24 Hours (Table) 06/01/18 06/01/18 06/01/18 Range/Units 12:15 18:00 18:04 WBC (3.8-10.6) k/uL Neutrophils # (1.3-7.7) k/uL Lymphocytes # (1.0-4.8) k/uL ABG pH 7.29 L (7.35-7.45) ABG pCO2 54 H (35-45) mmHg ABG HCO3 26 H (21-25) mmol/L ABG Total CO2 28 H (19-24) mmol/L Creatinine (0.66-1.25) mg/dL Glucose (74-99) mg/dL POC Glucose (mg/dL) 187 H (75-99) mg/dL Albumin (3.5-5.0) g/dL Urine Protein 2+ H (Negative) Urine Ketones 2+ H (Negative) Urine Mucus Occasional H (None) /hpf 06/01/18 06/02/18 06/02/18 Range/Units 20:33 07:48 08:27 WBC 18.4 H (3.8-10.6) k/uL Neutrophils # 17.2 H (1.3-7.7) k/uL Lymphocytes # 0.6 L (1.0-4.8) k/uL ABG pH (7.35-7.45) ABG pCO2 (35-45) mmHg ABG HCO3 (21-25) mmol/L ABG Total CO2 (19-24) mmol/L Creatinine (0.66-1.25) mg/dL Glucose (74-99) mg/dL POC Glucose (mg/dL) 134 H 120 H (75-99) mg/dL Albumin (3.5-5.0) g/dL Urine Protein (Negative) Urine Ketones (Negative) Urine Mucus (None) /hpf 06/02/18 Range/Units 08:27 WBC (3.8-10.6) k/uL Neutrophils # (1.3-7.7) k/uL Lymphocytes # (1.0-4.8) k/uL ABG pH (7.35-7.45) ABG pCO2 (35-45) mmHg ABG HCO3 (21-25) mmol/L ABG Total CO2 (19-24) mmol/L Creatinine 0.47 L (0.66-1.25) mg/dL Glucose 142 H (74-99) mg/dL POC Glucose (mg/dL) (75-99) mg/dL Albumin 3.2 L (3.5-5.0) g/dL Urine Protein (Negative) Urine Ketones (Negative) Urine Mucus (None) /hpf Microbiology - Last 24 Hours (Table) 06/01/18 12:15 Urine Culture - Preliminary Urine,Voided Assessment and Plan Plan: 1 acute hypercapnic respiratory failure secondary to COPD exacerbation, and purulent tracheobronchitis. 2 acute tracheobronchitis 3 tobacco dependence syndrome 4 generalized anxiety disorder. Plan: Continue current medical treatment, nebulized bronchodilators, IV steroids and current antibiotic coverage. Cultures are pending, no fever no chills. Smoking cessation was again encouraged. BiPAP support as needed. Continue to follow I performed a history & physical examination of the patient and discussed their management with my nurse practitioner, Larissa Cortez. I reviewed the nurse practitioner's note and agree with the documented findings and plan of care. Lung sounds are diminished breath sounds with expiratory wheezes. The findings and the impression was discussed with the patient. I attest to the documentation by the nurse practitioner. Time with Patient: Less than 30
--- NOTE | 2018-06-02 11:40 | P.PN ---
Subjective Progress Note Date: 06/02/18 Principal diagnosis: acute exacerbation of COPD Mr. Mccarthy is a 47-year-old male with a past medical history of COPD admitted to the hospital with chief complaint of difficulty in treating fevers for the past couple of days. Patient is currently being treated for acute exacerbation of COPD. Yesterday the patient was found to be more short of breath and was evaluated by pulmonary Dr. Ramsey and he was placed on BiPAP. The patient has been off of BiPAP this morning and is saturating in high 90s with 3 L of nasal cannula. patient is lying comfortably in the bed appears to be no acute distress. He does state that he his breathing is much better compared to yesterday. He also mentions that his cough is much better. Patient denies having any chest pain or palpitations. No abdominal pain nausea vomiting or diarrhea. No dysuria or hematuria. Objective - Vital Signs Vital signs: Vital Signs Temp 98.1 F 06/02/18 07:00 Pulse 84 06/02/18 07:58 Resp 16 06/02/18 07:00 BP 132/67 06/02/18 07:00 Pulse Ox 95 06/02/18 07:00 Intake & Output 06/01/18 06/02/18 06/02/18 19:59 06:59 18:59 Weight Other: Voiding Method # Bowel Movements - Exam GEN. APPEARANCE: alert, no acute distress HEAD EXAM: atraumatic, normocephalic, normal inspection EYE EXAM: No pallor no icterus ENT EXAM: normal exam, mucous membranes moist NECK EXAM: No thyromegaly no JVD RESPIRATORY EXAM: Decreased breath sounds in all lung murry. Bilateral end- expiratory wheeze. CARDIOVASCULAR EXAM: Tachycardia. S1-S2 heard GI/ABDOMINAL EXAM: soft, normal bowel sounds. Absent: distended, tenderness, guarding, rebound, rigid EXTREMITIES EXAM: normal inspection, full ROM, normal capillary refill. Absent : tenderness, pedal edema, joint swelling, calf tenderness NEUROLOGICAL EXAM: alert, oriented X3, no focal neurological deficits - Labs CBC & Chem 7: 06/02/18 08:27 06/02/18 08:27 Labs: Abnormal Lab Results - Last 24 Hours (Table) 06/01/18 06/01/18 06/01/18 Range/Units 12:15 18:00 18:04 WBC (3.8-10.6) k/uL Neutrophils # (1.3-7.7) k/uL Lymphocytes # (1.0-4.8) k/uL ABG pH 7.29 L (7.35-7.45) ABG pCO2 54 H (35-45) mmHg ABG HCO3 26 H (21-25) mmol/L ABG Total CO2 28 H (19-24) mmol/L Creatinine (0.66-1.25) mg/dL Glucose (74-99) mg/dL POC Glucose (mg/dL) 187 H (75-99) mg/dL Albumin (3.5-5.0) g/dL Urine Protein 2+ H (Negative) Urine Ketones 2+ H (Negative) Urine Mucus Occasional H (None) /hpf 06/01/18 06/02/18 06/02/18 Range/Units 20:33 07:48 08:27 WBC 18.4 H (3.8-10.6) k/uL Neutrophils # 17.2 H (1.3-7.7) k/uL Lymphocytes # 0.6 L (1.0-4.8) k/uL ABG pH (7.35-7.45) ABG pCO2 (35-45) mmHg ABG HCO3 (21-25) mmol/L ABG Total CO2 (19-24) mmol/L Creatinine (0.66-1.25) mg/dL Glucose (74-99) mg/dL POC Glucose (mg/dL) 134 H 120 H (75-99) mg/dL Albumin (3.5-5.0) g/dL Urine Protein (Negative) Urine Ketones (Negative) Urine Mucus (None) /hpf 06/02/18 Range/Units 08:27 WBC (3.8-10.6) k/uL Neutrophils # (1.3-7.7) k/uL Lymphocytes # (1.0-4.8) k/uL ABG pH (7.35-7.45) ABG pCO2 (35-45) mmHg ABG HCO3 (21-25) mmol/L ABG Total CO2 (19-24) mmol/L Creatinine 0.47 L (0.66-1.25) mg/dL Glucose 142 H (74-99) mg/dL POC Glucose (mg/dL) (75-99) mg/dL Albumin 3.2 L (3.5-5.0) g/dL Urine Protein (Negative) Urine Ketones (Negative) Urine Mucus (None) /hpf Microbiology - Last 24 Hours (Table) 06/01/18 12:15 Urine Culture - Preliminary Urine,Voided Assessment and Plan Assessment: Sepsis secondary to CAP Acute exacerbation of COPD secondary to above Chronic nicotine dependence Plan: patient has been on BiPAP overnight. This morning off of BiPAP and saturating well on 3 L of oxygen.Patient to be continued on azithromycin for community acquired pneumonia. Continue with Solu-Medrol and breathing treatments. Nicotine patch for smoking cessation. Further recommendations to follow depending on the progress of the patient.
[2018-06-02 12:21] LABS: Glucose,Whole Blood 140 mg/dL (75-99)
[2018-06-02 17:36] LABS: Glucose,Whole Blood 156 mg/dL (75-99)
[2018-06-02 21:09] LABS: Glucose,Whole Blood 159 mg/dL (75-99)
[2018-06-03] MEDS: methylPREDNISolone SOD SUCCI 125 MG/2 ML VIAL IV SCH ×5 (00:04→23:37)
[2018-06-03] MEDS: SODIUM CHLORIDE 0.9% 1,000 ML IV SCH ×2 (00:05→12:40)
[2018-06-03] MEDS: IPRATROPIUM-ALBUTEROL 3 ML NEB INHALATION PRN ×3 (07:08→18:48)
[2018-06-03] MEDS: BUDESONIDE 0.5 MG/2 ML NEBU INHALATION SCH ×2 (07:08→18:49)
[2018-06-03] MEDS: SYMBICORT 160-4.5 MCG INHALER INHALATION SCH (07:11)
[2018-06-03 07:34] LABS: Glucose,Whole Blood 142 mg/dL (75-99)
[2018-06-03] MEDS: INSULIN ASPART 100 UNIT/ML 1 ML 10 ML VIAL SQ SCH ×4 (08:04→21:04)
[2018-06-03] MEDS: NICOTINE 21MG/24HR PATCH TRANSDERM SCH (08:04)
[2018-06-03] MEDS: ENOXAPARIN 40 MG/0.4 ML SYRINGE SQ SCH (08:05)
[2018-06-03] MEDS: PANTOPRAZOLE 40 MG TABLET PO SCH ×2 (08:05→18:30)
[2018-06-03] MEDS: guaiFENesin 600 MG TABLET.ER PO SCH ×2 (08:05→21:04)
[2018-06-03] MEDS: AZITHROMYCIN 500 MG TAB PO SCH (08:05)
[2018-06-03 10:18] LABS: Basophils % (A) 0 %; Eosinophils % (A) 0 %; HCT 40.4 % (39.0-53.0); HGB 13.2 gm/dL (13.0-17.5); Lymphocytes # (A) 0.5 k/uL (1.0-4.8); Lymphocytes % (A) 3 %; MCH 31.5 pg (25.0-35.0); MCHC 32.7 g/dL (31.0-37.0); MCV 96.1 fL (80.0-100.0); Mean Platelet Volume 7.7; Monocytes # (A) 0.8 k/uL (0-1.0); Monocytes % (A) 4 %; Neutrophils # (A) 16.6 k/uL (1.3-7.7); Neutrophils % (A) 92 %; Platelet Count 265 k/uL (150-450); RDW 13.8 % (11.5-15.5); WBC 18.1 k/uL (3.8-10.6)
[2018-06-03 12:34] LABS: Glucose,Whole Blood 136 mg/dL (75-99)
--- NOTE | 2018-06-03 14:47 | P.PN ---
Subjective Progress Note Date: 06/03/18 Principal diagnosis: COPD exacerbation Progress note dated 06/03/2018 47-year-old male with a history of hypoxemic hypercapnic respiratory failure. The patient likely has very severe COPD. The patient also has a history of acute tracheobronchitis chronic tobacco dependence and generalized anxiety disorder. In addition, he admits today that he hasn't been using his medication. He apparently was living with somebody in his inhalers and nebulizer machine was at that person's house. They apparently had a falling out and he apparently was kicked out of the house and does not have his medications. For that reason, he feels like he allowed his COPD without a controlled which necessitated the admission. In addition, the patient admits to continued tobacco use. Based on his chest x-ray, the patient likely has very severe COPD/emphysema. The patient is feeling a bit better today compared to yesterday. He is optimized on all the appropriate medications. Objective - Vital Signs Vital signs: Vital Signs Temp 97.3 F L 06/03/18 07:00 Pulse 84 06/03/18 11:15 Resp 18 06/03/18 08:00 BP 146/73 06/03/18 07:00 Pulse Ox 96 06/03/18 07:00 Intake & Output 06/02/18 06/03/18 06/03/18 18:59 06:59 18:59 Intake Total 300 Output Total 1000 1000 Balance -1000 -700 Intake: Oral 300 Output: Urine 1000 1000 Other: Voiding Method Urinal # Voids 1 # Bowel Movements 0 - Exam No acute distress, oriented 3. Nasal O2 in place. HEENT examination is grossly unremarkable. Mucous membranes are moist. No oral lesions. Neck supple. Full range of motion. No adenopathy thyromegaly or neck vein distention. Cardiovascular examination reveals regular rhythm rate. S1-S2 normal. No S3 or S4. No discernible murmur noted. Heart sounds are distant. Lungs reveal expiratory wheezes and rhonchi. Breath sounds are diminished. There is prolongation on forced maneuver. Patient wheezes and coughs on forced maneuver. Breath sounds are equal bilaterally but diminished throughout.. Abdomen soft bowel sounds are heard. No masses or tenderness. Extremities are intact. No cyanosis clubbing or edema. Skin is without rash or lesion. Neurologic examination is brief but nonfocal. - Labs CBC & Chem 7: 06/03/18 09:48 06/02/18 08:27 Labs: Abnormal Lab Results - Last 24 Hours (Table) 06/02/18 06/02/18 06/03/18 Range/Units 17:30 21:04 07:26 WBC (3.8-10.6) k/uL RBC (4.30-5.90) m/uL Neutrophils # (1.3-7.7) k/uL Lymphocytes # (1.0-4.8) k/uL POC Glucose (mg/dL) 156 H 159 H 142 H (75-99) mg/dL 06/03/18 06/03/18 Range/Units 09:48 12:24 WBC 18.1 H (3.8-10.6) k/uL RBC 4.20 L (4.30-5.90) m/uL Neutrophils # 16.6 H (1.3-7.7) k/uL Lymphocytes # 0.5 L (1.0-4.8) k/uL POC Glucose (mg/dL) 136 H (75-99) mg/dL Microbiology - Last 24 Hours (Table) 06/01/18 10:32 Blood Culture - Preliminary Blood No Growth after 48 hours 06/01/18 12:15 Urine Culture - Final Urine,Voided Assessment and Plan Assessment: Assessment Acute hypoxemic and hypercapnic respiratory failure secondary to COPD exacerbation, complicated by purulent tracheobronchitis Chronic tobacco dependence Noncompliance with COPD medications Generalized anxiety disorder Plan: Plan dated 06/03/2018 Currently, the patient's on all appropriate medications. Today we stressed the importance of smoking cessation. We also stressed the importance of making sure that when he gets discharged this time, he has all the appropriate medications at home including his nebulizer machine. Apparently his equipment and his medications were at a friend's house but they had a falling out and he got kicked out he is not had his medications for some time. Currently, his white count is 18.1, hemoglobin 13.2 hematocrit 40.4 and platelet count 265, 000. Microbiology is pending or negative. Medications are reviewed and include duo nebs 4 times a day and when necessary, Pulmicort 1 mg twice a day mixed with performist 20 g, and Solu-Medrol 60 mg every 6 hours. He is also on an oral antibiotic. Time with Patient: Less than 30
[2018-06-03 17:40] LABS: Glucose,Whole Blood 131 mg/dL (75-99)
[2018-06-03] MEDS: FORMOTEROL FUMARATE 20 MCG/2 ML NEBU INHALATION SCH (18:46)
[2018-06-03 20:50] LABS: Glucose,Whole Blood 195 mg/dL (75-99)
--- NOTE | 2018-06-03 22:38 | P.PN ---
Subjective Progress Note Date: 06/03/18 Principal diagnosis: Acute COPD exacerbation Purulent tracheobronchitis Acute hypoxic respiratory failure secondary to above Mr. Mccarthy is a 47-year-old male with a past medical history of COPD admitted to the hospital with chief complaint of difficulty in treating fevers for the past couple of days. Patient is currently being treated for acute exacerbation of COPD. On 06/01/2018 patient was found to be more short of breath and was evaluated by pulmonary Dr. Ramsey and he was placed on BiPAP. The patient has been off of BiPAP this morning and is saturating in high 90s with 3 L of nasal cannula. patient is lying comfortably in the bed appears to be no acute distress. He does state that he his breathing is much better compared to yesterday. He also mentions that his cough is much better. Patient denies having any chest pain or palpitations. No abdominal pain nausea vomiting or diarrhea. No dysuria or hematuria. 06/03/2018 Patient is currently saturating well on nausea cannula. Patient was on BiPAP. Denied any complaints of chest pain. Shortness of breath is improving slowly. No fever no chills. No nausea vomiting or abdominal pain. No other acute overnight issues. Patient is being continued on IV steroids and breathing treatments. Pulmonary is on board. Current medications reviewed Objective - Vital Signs Vital signs: Vital Signs Temp 98.3 F 06/03/18 15:00 Pulse 51 L 06/03/18 15:00 Resp 18 06/03/18 15:07 BP 141/81 06/03/18 15:00 Pulse Ox 95 06/03/18 15:00 Intake & Output 06/02/18 06/03/18 06/03/18 18:59 06:59 18:59 Intake Total 300 1150 Output Total 1000 1000 Balance -1000 -700 1150 Intake: Oral 300 1150 Output: Urine 1000 1000 Other: Voiding Method Urinal # Voids 1 3 # Bowel Movements 0 - Exam GEN. APPEARANCE: alert, no acute distress HEAD EXAM: atraumatic, normocephalic, normal inspection EYE EXAM: No pallor no icterus ENT EXAM: normal exam, mucous membranes moist NECK EXAM: No thyromegaly no JVD RESPIRATORY EXAM: Decreased breath sounds in all lung murry. Bilateral end- expiratory wheeze. CARDIOVASCULAR EXAM: Tachycardia. S1-S2 heard GI/ABDOMINAL EXAM: soft, normal bowel sounds. Absent: distended, tenderness, guarding, rebound, rigid EXTREMITIES EXAM: normal inspection, full ROM, normal capillary refill. Absent : tenderness, pedal edema, joint swelling, calf tenderness NEUROLOGICAL EXAM: alert, oriented X3, no focal neurological deficits - Labs CBC & Chem 7: 06/03/18 09:48 06/02/18 08:27 Labs: Abnormal Lab Results - Last 24 Hours (Table) 06/02/18 06/03/18 06/03/18 Range/Units 21:04 07:26 09:48 WBC 18.1 H (3.8-10.6) k/uL RBC 4.20 L (4.30-5.90) m/uL Neutrophils # 16.6 H (1.3-7.7) k/uL Lymphocytes # 0.5 L (1.0-4.8) k/uL POC Glucose (mg/dL) 159 H 142 H (75-99) mg/dL 06/03/18 06/03/18 Range/Units 12:24 17:31 WBC (3.8-10.6) k/uL RBC (4.30-5.90) m/uL Neutrophils # (1.3-7.7) k/uL Lymphocytes # (1.0-4.8) k/uL POC Glucose (mg/dL) 136 H 131 H (75-99) mg/dL Microbiology - Last 24 Hours (Table) 06/01/18 10:32 Blood Culture - Preliminary Blood No Growth after 48 hours 06/01/18 12:15 Urine Culture - Final Urine,Voided Assessment and Plan Assessment: Acute hypoxic respiratory failure secondary to Acute exacerbation of COPD secondary to above Acute purulent tracheobronchitis. Chest x-ray showed COPD. Noncompliance with medications. Chronic nicotine dependence Generalized anxiety Plan: patient was on BiPAP overnight. Currently off BiPAP and saturating well on 3 L of oxygen.Patient to be continued on azithromycin bronchitis. Continue with Solu-Medrol and breathing treatments. Nicotine patch for smoking cessation. Further recommendations to follow depending on the progress of the patient.
[2018-06-04] MEDS: methylPREDNISolone SOD SUCCI 125 MG/2 ML VIAL IV SCH ×2 (06:30→12:02)
[2018-06-04 07:00] LABS: Glucose,Whole Blood 153 mg/dL (75-99)
[2018-06-04] MEDS: FORMOTEROL FUMARATE 20 MCG/2 ML NEBU INHALATION SCH (07:09)
[2018-06-04] MEDS: IPRATROPIUM-ALBUTEROL 3 ML NEB INHALATION PRN ×3 (07:09→14:48)
[2018-06-04] MEDS: BUDESONIDE 0.5 MG/2 ML NEBU INHALATION SCH (07:10)
[2018-06-04] MEDS: NICOTINE 21MG/24HR PATCH TRANSDERM SCH (07:32)
[2018-06-04] MEDS: guaiFENesin 600 MG TABLET.ER PO SCH (07:32)
[2018-06-04] MEDS: PANTOPRAZOLE 40 MG TABLET PO SCH (07:33)
[2018-06-04] MEDS: ENOXAPARIN 40 MG/0.4 ML SYRINGE SQ SCH (07:33)
[2018-06-04] MEDS: AZITHROMYCIN 500 MG TAB PO SCH (07:33)
[2018-06-04] MEDS: INSULIN ASPART 100 UNIT/ML 1 ML 10 ML VIAL SQ SCH ×2 (07:36→12:03)
[2018-06-04 11:46] LABS: Glucose,Whole Blood 146 mg/dL (75-99)
--- NOTE | 2018-06-04 13:08 | P.PN ---
Subjective Progress Note Date: 06/04/18 Principal diagnosis: Acute hypercapnic restaurant failure secondary to COPD exacerbation and purulent tracheal bronchitis This is a 47-year-old white male, at least a [id number] smoker, known history of COPD, presented to the hospital with 2 days history of shortness of breath, cough, wheezing. And fevers. Patient saw his primary care physician recently and he was started on prednisone he was also given updrafts, however he has not been getting any better. His cough is described as productive with greenish phlegm, intermittent episodes of fever, shortness of breath cough and wheezing. No chest pain, no hemoptysis, no palpitations, no nausea no vomiting no abdominal pain, no melena no hematemesis no dysuria and no frequency no urgency. Chest x-ray showed no evidence of infiltrate. CBC showed leukocytosis with WBC count of 18.4. His ABG showed a pO2 of 84 pCO2 of 54 pH of 7.29, and this was on 4 L nasal cannula. Basic metabolic profile was noted to be normal. After evaluating the patient, I recommended that we continue with bronchodilators, recommended BiPAP, and FiO2 to be titrated to a sat above 90%. On 06/02/2018 patient seen in follow-up on medical surgical floor. Currently on 3 L per nasal cannula, his pulse ox is 95%, he did wear his BiPAP last night , Pressures 12 and 4, and FiO2 of 30%. His cough is nonproductive, lung sounds are diminished, with faint end expiratory wheezes on forced exhale maneuver. He is afebrile this morning, urine cultures pending. He is on a combination of Zithromax and Rocephin. His IV steroids, nebulized bronchodilators. On 06/04/2018 patient seen in follow-up on medical surgical floor. Breathing much easier today, lung sounds are positive for minimal end expiratory wheezes, much less bronchospastic and congested on today's exam. Pulse ox is 97% on 2 L per nasal cannula, patient is afebrile, hemodynamically stable. Has been ambulating, tolerating activity well. Cultures have been negative. Patient has been treated for COPD exacerbation and he clinically is improving. Objective - Vital Signs Vital signs: Vital Signs Temp 97.4 F L 06/04/18 05:56 Pulse 60 06/04/18 11:01 Resp 18 06/04/18 08:00 BP 158/82 06/04/18 05:56 Pulse Ox 97 06/04/18 07:12 Intake & Output 06/03/18 06/04/18 06/04/18 18:59 06:59 18:59 Intake Total 1150 Balance 1150 Intake: Oral 1150 Other: Voiding Method Urinal # Voids 3 1 - Exam Physical Exam: Revealed a 47-year-old white male anxious, in mild distress. Head: Atraumatic, normocephalic. HEENT:[Neck is supple.] [No neck masses.] [No thyromegaly.] [No JVD.] PERRLA, EOMI, no icterus. Chest: [Diminished breath sound bilaterally, faint end expiratory wheezes noted bilaterally. Symmetrical chest expansion, no chest wall tenderness.] Cardiac Exam: [Normal S1 and S2, no S3 gallop, no murmur.] Abdomen: [Soft, nontender, no megaly, no rebound, no guarding, normal bowel sounds.] Extremities: [No clubbing, no edema, no cyanosis.] Neurological Exam: [No focal neurologic deficit Psychiatric: Slightly anxious otherwise unremarkable, normal mental status examination. Skin: No rashes. Lymphatics: No lymphadenopathy..] - Labs CBC & Chem 7: 06/03/18 09:48 06/02/18 08:27 Labs: Abnormal Lab Results - Last 24 Hours (Table) 06/03/18 06/03/18 06/04/18 Range/Units 17:31 20:46 06:58 POC Glucose (mg/dL) 131 H 195 H 153 H (75-99) mg/dL 06/04/18 Range/Units 11:42 POC Glucose (mg/dL) 146 H (75-99) mg/dL Microbiology - Last 24 Hours (Table) 06/01/18 10:32 Blood Culture - Preliminary Blood No Growth after 72 hours Assessment and Plan Plan: 1 acute hypercapnic respiratory failure secondary to COPD exacerbation, and purulent tracheobronchitis. 2 acute tracheobronchitis 3 tobacco dependence syndrome 4 generalized anxiety disorder. Plan: Patient is improving, breathing easier, vital signs are stable, no fever no chills, he is tolerating ambulation. From pulmonary perspective patient is stable for discharge home today, recommend patient go home on DuoNeb nebulized treatments, Symbicort, finish outpatient course of Zithromax, follow-up with Dr. Ramsey in the office in one week I performed a history & physical examination of the patient and discussed their management with my nurse practitioner, Larissa Cortez. I reviewed the nurse practitioner's note and agree with the documented findings and plan of care. Lung sounds are diminished breath sounds with faint expiratory wheezes. The findings and the impression was discussed with the patient. I attest to the documentation by the nurse practitioner. Time with Patient: Less than 30
[2018-06-04] MEDS ORDERED: predniSONE 50 MG TAB PO SCH (14:15)
[2018-06-04 14:16] VITALS: BP 135/86; RESP 16; TEMP 97.2
[2018-06-04 14:58] VITALS: PULSE 56
--- NOTE | 2018-06-04 23:21 | P.DS ---
Providers Date of admission: 06/01/18 13:56 Expected date of discharge: 06/04/18 Attending physician: Deandra Ellington Consults: 06/01/18 17:45 Consult Physician Routine Consulting Provider: Myrtle Miguel Consult Reason/Comments: COPD Do you want consulting provider notified?: Yes Primary care physician: Andres Vizcarra Hospital Course: Discharge diagnosis Acute hypoxic respiratory failure secondary to Acute exacerbation of COPD secondary to above Acute purulent tracheobronchitis. Chest x-ray showed COPD. Noncompliance with medications. Chronic nicotine dependence Generalized anxiety Hospital course Mr. Mccarthy is a 47-year-old male with a past medical history of COPD admitted to the hospital with chief complaint of difficulty in treating fevers for the past couple of days. Patient is currently being treated for acute exacerbation of COPD. On 06/01/2018 patient was found to be more short of breath and was evaluated by pulmonary Dr. Ramsey and he was placed on BiPAP. The patient has been off of BiPAP this morning and is saturating in high 90s with 3 L of nasal cannula. patient is lying comfortably in the bed appears to be no acute distress. He does state that he his breathing is much better compared to yesterday. He also mentions that his cough is much better. Patient denies having any chest pain or palpitations. No abdominal pain nausea vomiting or diarrhea. No dysuria or hematuria. 06/03/2018 Patient is currently saturating well on nausea cannula. Patient was on BiPAP. Denied any complaints of chest pain. Shortness of breath is improving slowly. No fever no chills. No nausea vomiting or abdominal pain. No other acute overnight issues. Patient is being continued on IV steroids and breathing treatments. Pulmonary is on board. 06/04/2018 Patient did improve clinically. Breathing status is much improved now. Able to saturating well on room air. No need for home oxygen. Patient will be discharged home with tapering steroids and antibiotics. Clear from pulmonary standpoint. Plan: patient was on BiPAP overnight. Currently off BiPAP and saturating well on 3 L of oxygen which is titrating down to room air now..Patient to be continued on azithromycin bronchitis. Continued with Solu-Medrol and breathing treatments. Nicotine patch for smoking cessation. Patient did improve with the above management and is stable to be discharged home. PHYSICAL EXAMINATION: Patient is lying in the bed comfortably, no acute distress, awake alert and oriented.. HEENT: Normocephalic. Neck is supple. Pupils reactive. Nostrils clear. Oral cavity is moist. Ears reveal no drainage. Neck reveals no JVD, carotid bruits, or thyromegaly. CHEST EXAMINATION: Trachea is central. Symmetrical expansion. Expiratory wheezing present. Bilateral air entry improved.. CARDIAC: Normal S1, S2 with no gallops. No murmurs ABDOMEN: Soft. Bowel sounds normal. No organomegaly. No abdominal bruits. Extremities: reveal no edema. No clubbing or cyanosis Neurologically awake, alert, oriented x3 with well-coordinated movements. No focal deficits noted Skin: No rash or skin lesions. Psychiatric: Coperative. Nonsuicidal Musculoskeletal: No joint swelling or deformity. Normal range of motion. Vital Signs - 24 hr 06/04/18 06/04/18 06/04/18 05:56 07:12 07:20 Temperature 97.4 F L Pulse Rate 53 L 56 L Pulse Rate [ 61 Pulse Oximetery ] Respiratory 18 Rate Blood Pressure 158/82 [Right Arm] O2 Sat by Pulse 100 97 Oximetry O2 Sat by Pulse Oximetry [Room Air at Rest] O2 Sat by Pulse Oximetry [Room Air w/Exercise ] 06/04/18 06/04/18 06/04/18 07:29 08:00 10:54 Temperature Pulse Rate 47 L 56 L Pulse Rate [ Pulse Oximetery ] Respiratory 18 Rate Blood Pressure [Right Arm] O2 Sat by Pulse Oximetry O2 Sat by Pulse Oximetry [Room Air at Rest] O2 Sat by Pulse Oximetry [Room Air w/Exercise ] 06/04/18 06/04/18 06/04/18 11:01 14:16 14:44 Temperature 97.2 F L Pulse Rate 60 Pulse Rate [ 54 L Pulse Oximetery ] Respiratory 16 Rate Blood Pressure 135/86 [Right Arm] O2 Sat by Pulse 96 Oximetry O2 Sat by Pulse 96 Oximetry [Room Air at Rest] O2 Sat by Pulse 96 Oximetry [Room Air w/Exercise ] 06/04/18 06/04/18 14:49 14:57 Temperature Pulse Rate 58 L 56 L Pulse Rate [ Pulse Oximetery ] Respiratory Rate Blood Pressure [Right Arm] O2 Sat by Pulse Oximetry O2 Sat by Pulse Oximetry [Room Air at Rest] O2 Sat by Pulse Oximetry [Room Air w/Exercise ] Patient Condition at Discharge: Stable Plan - Discharge Summary New Discharge Prescriptions: New Azithromycin [Zithromax] 500 mg PO DAILY #3 tab Ipratropium-Albuterol Nebulize [Duoneb 0.5 mg-3 mg/3 ml Soln] 3 ml INHALATION RT-Q4H PRN #60 ampul.neb PRN Reason: Shortness Of Breath Or Wheezing predniSONE See Taper PO DIRECTED #30 tab Continue Albuterol Sulfate [Proair Hfa] 2 puff INHALATION RT-Q4H PRN PRN Reason: difficulty in breathing Budesonide-Formot 160-4.5 Mcg [Symbicort 160-4.5 Mcg Inhaler] 2 puff INHALATION BID #1 inhaler Discharge Medication List Albuterol Sulfate [Proair Hfa] 2 puff INHALATION RT-Q4H PRN 04/02/18 [History] Budesonide-Formot 160-4.5 Mcg [Symbicort 160-4.5 Mcg Inhaler] 2 puff INHALATION BID #1 inhaler 04/08/18 [Rx] Azithromycin [Zithromax] 500 mg PO DAILY #3 tab 06/04/18 [Rx] Ipratropium-Albuterol Nebulize [Duoneb 0.5 mg-3 mg/3 ml Soln] 3 ml INHALATION RT -Q4H PRN #60 ampul.neb 06/04/18 [Rx] predniSONE See Taper PO DIRECTED #30 tab 06/04/18 [Rx] Follow up Appointment(s)/Referral(s): Myrtle Miguel MD [STAFF PHYSICIAN] - 06/28/18 9:00 am Zackery Campos MD [Primary Care Provider] - 06/13/18 1:10 pm Patient Instructions/Handouts: COPD (Chronic Obstructive Pulmonary Disease) (DC ) Discharge Disposition: HOME SELF-CARE
--- NOTE | 2018-06-07 09:10 | CDI ---
Last Revision, June 2017 Documentation Clarification Form Date: 06/07/18 From: Anyi Dueñas Phone: If you have a question regarding this query, please contact Cara Murillo at [phone] between 8am and 5pm. Admit Date: 06/01/2018 1:56:00 PM Patient Name: Jamal Mccarthy Visit Number: [id number] Discharge Date: 06/04/18 ATTENTION: The Clinical Documentation Specialists (CDI) and [facility] Coding Staff appreciate your assistance in clarifying documentation. Please respond to the clarification below the line at the bottom and electronically sign. The CDI & [facility] Coding staff will review the response and follow-up if needed. Please note: Queries are made part of the Legal Health Record. If you have any questions, please contact the author of this message via ITS. Nikole Petersen MD Sepsis is documented in the ED note, H&P and Dr. Morales's 06/02 progress note. History/Risk Factors: Patient was admitted with COPD exacerbation and acute tracheobronchitis. Clinical Indicators: Fever, tachycardia WBC/Left Shift: 18.4/16.2 Lactic acid: 1.7 Blood cultures: No growth Vitals signs on admission: T. 100.6, P. 125, R. 30, BP 136/88 Treatment: Antibiotics: IV Ceftriaxone and PO Zithromax IV Bolus: 2 L Sodium Chloride then 100 mls/hr In your professional opinion, please clarify if these findings signify one of the following conditions, whether the condition is POA, and cause, if known: Sepsis ruled out SIRS, without underlying infectious process Sepsis Severe Sepsis Septic Shock Other, please specify Unable to determine Link or clarify if there is associated (due to/with): Organ failure Shock Sepsis MTDD
== END 2018-06-04 15:15 | disposition home or self-care (01) | DRG 871 ==
LOC: EC 09:47 → 4MS4W 13:56
PROVIDERS: ADMIT Internal Medicine; ATTEND Internal Medicine
PROC: 5A09357 Assistance with Respiratory Ventilation, Less than 24 Consecutive Hours, Continuous Positive Airway Pressure (ICD-10-PCS; principal; 2018-06-02)
DX: A41.9 Sepsis, unspecified organism (principal); J96.01 Acute respiratory failure with hypoxia; J96.02 Acute respiratory failure with hypercapnia; J44.1 Chronic obstructive pulmonary disease with (acute) exacerbation; J44.0 Chronic obstructive pulmonary disease with (acute) lower respiratory infection; F17.210 Nicotine dependence, cigarettes, uncomplicated; T50.906A Underdosing of unspecified drugs, medicaments and biological substances, initial encounter; F41.1 Generalized anxiety disorder; J20.9 Acute bronchitis, unspecified; Z79.51 Long term (current) use of inhaled steroids; Z79.899 Other long term (current) drug therapy; Z91.138 Patient's unintentional underdosing of medication regimen for other reason; Z91.19 Patient's noncompliance with other medical treatment and regimen
CPT/HCPCS: 36415; 36600; 71046; 80053; 81001; 82805; 83605; 84484; 85025; 85610; 85730; 87040; 87086; 93005; 94640; 94660; 94760; 96361; 96365; 96374; 99285

== ENCOUNTER 2018-10-24 19:53 | Emergency (ER) | payer OTHER ==
[2018-10-24] MEDS ORDERED: IPRATROPIUM-ALBUTEROL 3 ML NEB INHALATION STA (20:10)
[2018-10-24] MEDS ORDERED: SODIUM CHLORIDE 0.9% 1,000 ML IV ONE (20:16)
--- NOTE | 2018-10-24 20:17 | ED ---
Alcohol HPI - General Chief Complaint: Alcohol Stated Complaint: ETOH Time Seen by Provider: 10/24/18 20:02 Source: EMS Mode of arrival: EMS Limitations: no limitations - History of Present Illness Initial Comments: Patient is a 48-year-old male who presents with a chief complaint of alcohol intoxication. He was found by [employer] in a park asleep. Patient was brought to the emergency department because he was too drunk. Patient states he drinks daily. He is unable to tell, she drinks a day. He knows his name, the president, where he has but does not know what year it is. Patient is not of any physical signs of trauma, he denies any injury. MD Complaint: alcohol intoxication - Related Data Home Medications Medication Instructions Recorded Confirmed Albuterol Sulfate [Proair Hfa] 2 puff INHALATION RT-Q4H PRN 04/02/18 10/24/18 Previous Rx's Medication Instructions Recorded Ipratropium-Albuterol Nebulize 3 ml INHALATION RT-Q4H PRN #60 06/04/18 [Duoneb 0.5 mg-3 mg/3 ml Soln] ampul.neb Allergies Allergy/AdvReac Type Severity Reaction Status Date / Time No Known Allergies Allergy Verified 10/24/18 21:01 Review of Systems ROS Statement: Those systems with pertinent positive or pertinent negative responses have been documented in the HPI. ROS Other: All systems not noted in ROS Statement are negative. Past Medical History Past Medical History: COPD Additional Past Medical History / Comment(s): emphysema History of Any Multi-Drug Resistant Organisms: None Reported Past Surgical History: No Surgical Hx Reported Past Anesthesia/Blood Transfusion Reactions: No Reported Reaction Past Psychological History: No Psychological Hx Reported Smoking Status: Current every day smoker Past Alcohol Use History: Abuse Past Drug Use History: None Reported General Exam Limitations: no limitations General appearance: alert, in no apparent distress Head exam: Present: atraumatic, normocephalic Eye exam: Present: normal appearance, PERRL, EOMI. Absent: scleral icterus, conjunctival injection, nystagmus ENT exam: Present: normal exam Neck exam: Present: normal inspection Respiratory exam: Present: decreased breath sounds Cardiovascular Exam: Present: normal rhythm, tachycardia GI/Abdominal exam: Present: soft. Absent: distended, tenderness Rectal exam: Present: deferred Extremities exam: Present: normal inspection Back exam: Present: normal inspection Neurological exam: Present: alert, CN II-XII intact, normal gait Psychiatric exam: Present: normal affect, normal mood, other (Intoxicated) Skin exam: Present: warm, dry Course Vital Signs 10/24/18 10/24/18 10/24/18 19:58 20:28 20:46 Temperature 96.9 F L Pulse Rate 101 H 101 H 102 H Respiratory 18 Rate Blood Pressure 154/121 O2 Sat by Pulse 96 Oximetry Medical Decision Making - Medical Decision Making Patient presents with a chief complaint: Intoxication, brought to the emergency department by police department. He was found asleep in a park. On initial evaluation, but essentially mild tachycardia but are otherwise stable. Patient is ambulatory without assistance. She is alert and oriented but does not know what year it is. There are no physical signs of trauma on the patient. Patient will be evaluated with basic labs, he will be sent for a chest x-ray and computed tomography scan of the head. He was given folic acid and B12. EKG performed at 2027 shows normal sinus rhythm with a rate of 91 bpm. Segments are within normal limits, EKG is otherwise unremarkable. Lab evaluation of this dictation is unremarkable including a negative troponin. Computed tomography scan of the head shows no acute process. Patient will be sober at 5 in the morning. Patient will be allowed to sleep in the emergency department until sober and will be discharged by the overnight physician. 1:36 AM Patient was reevaluated, he is awake, alert, in no distress. Neurologically intact. Patient will be sober at 5 in the morning, he has decided to stay in the emergency department until then. She is handed off to Dr. Henry who will follow the case to disposition. - Lab Data Result diagrams: 10/24/18 20:33 10/24/18 20:33 Lab Results 10/24/18 10/24/18 10/24/18 Range/Units 20:33 20:33 20:33 WBC 5.0 (3.8-10.6) k/uL RBC 5.17 (4.30-5.90) m/uL Hgb 16.0 (13.0-17.5) gm/dL Hct 49.5 (39.0-53.0) % MCV 95.9 (80.0-100.0) fL MCH 30.9 (25.0-35.0) pg MCHC 32.3 (31.0-37.0) g/dL RDW 13.7 (11.5-15.5) % Plt Count 220 (150-450) k/uL Neutrophils % 35 % Lymphocytes % 48 % Monocytes % 9 % Eosinophils % 2 % Basophils % 2 % Neutrophils # 1.7 (1.3-7.7) k/uL Lymphocytes # 2.4 (1.0-4.8) k/uL Monocytes # 0.4 (0-1.0) k/uL Eosinophils # 0.1 (0-0.7) k/uL Basophils # 0.1 (0-0.2) k/uL Sodium 145 (137-145) mmol/L Potassium 4.7 (3.5-5.1) mmol/L Chloride 107 (98-107) mmol/L Carbon Dioxide 27 (22-30) mmol/L Anion Gap 11 mmol/L BUN 7 L (9-20) mg/dL Creatinine 0.59 L (0.66-1.25) mg/dL Est GFR (CKD-EPI)AfAm >90 (>60 ml/min/1.73 sqM) Est GFR (CKD-EPI)NonAf >90 (>60 ml/min/1.73 sqM) Glucose 79 (74-99) mg/dL Calcium 9.0 (8.4-10.2) mg/dL Troponin I <0.012 (0.000-0.034) ng/mL Disposition Clinical Impression: Alcohol intoxication Disposition: HOME SELF-CARE Condition: Good Instructions (If sedation given, give patient instructions): Alcohol Intoxication (ED) Is patient prescribed a controlled substance at d/c from ED?: No Referrals: Zackery Campos MD [Primary Care Provider] - 1-2 days
[2018-10-24 20:43] LABS: Basophils # (A) 0.1 k/uL (0-0.2); Basophils % (A) 2 %; Eosinophils # (A) 0.1 k/uL (0-0.7); Eosinophils % (A) 2 %; HCT 49.5 % (39.0-53.0); Lymphocytes # (A) 2.4 k/uL (1.0-4.8); Lymphocytes % (A) 48 %; MCH 30.9 pg (25.0-35.0); MCHC 32.3 g/dL (31.0-37.0); MCV 95.9 fL (80.0-100.0); Mean Platelet Volume 7.7; Monocytes # (A) 0.4 k/uL (0-1.0); Monocytes % (A) 9 %; Neutrophils # (A) 1.7 k/uL (1.3-7.7); Neutrophils % (A) 35 %; Platelet Count 220 k/uL (150-450); RBC 5.17 m/uL (4.30-5.90); RDW 13.7 % (11.5-15.5)
[2018-10-24 20:52] LABS: Anion Gap 11 mmol/L; Blood Urea Nitrogen 7 mg/dL (9-20); Carbon Dioxide 27 mmol/L (22-30); Chloride 107 mmol/L (98-107); Glucose 79 mg/dL (74-99); Potassium 4.7 mmol/L (3.5-5.1); Sodium 145 mmol/L (137-145)
--- NOTE | 2018-10-24 21:08 | XR ---
EXAMINATION TYPE: XR chest 2V DATE OF EXAM: 10/24/2018 COMPARISON: 06/01/2018 HISTORY: Short of breath TECHNIQUE: Frontal and lateral views of the chest are obtained. FINDINGS: Heart and mediastinum are normal. Lungs are clear. Diaphragm is normal. Bony thorax appear s normal. IMPRESSION: Normal chest. No change.
--- NOTE | 2018-10-24 21:22 | CT ---
EXAMINATION TYPE: CT brain wo con DATE OF EXAM: 10/24/2018 COMPARISON: 02/11/2013 HISTORY: ETOH weakness CT DLP: 1090.4 mGycm. Automated Exposure Control for Dose Reduction was Utilized. TECHNIQUE: CT scan of the head is performed without contrast. FINDINGS: There is cerebral cortical atrophy. There is no mass effect nor midline shift. There is n o sign of intracranial hemorrhage. The calvarium is intact. IMPRESSION: Cerebral atrophy. No acute intracranial abnormality. No change.
[2018-10-25 05:50] VITALS: BP 143/93; PULSE 98; RESP 8; TEMP 97.9
[2018-10-25] MEDS ORDERED: FOLIC ACID-VIT B COMPLEX-VIT C 1 CAP PO SCH (12:00)
== END 2018-10-25 05:50 | disposition home or self-care (01) ==
LOC: EC 19:53
DX: F10.129 Alcohol abuse with intoxication, unspecified (principal); J44.9 Chronic obstructive pulmonary disease, unspecified; F17.200 Nicotine dependence, unspecified, uncomplicated; Z53.8 Procedure and treatment not carried out for other reasons
CPT/HCPCS: 36415; 70450; 71046; 80048; 82075; 84484; 85025; 93005; 94640; 96360; 99285

== ENCOUNTER 2018-10-25 16:53 | Observation (INO) | payer OTHER ==
[2018-10-25] MEDS ORDERED: methylPREDNISolone SOD SUCCI 125 MG/2 ML VIAL IV STA (17:16)
[2018-10-25] MEDS ORDERED: IPRATROPIUM-ALBUTEROL 3 ML NEB INHALATION STA ×2 (17:17→18:56)
[2018-10-25] MEDS ORDERED: SODIUM CHLORIDE 0.9% 1,000 ML IV STA (17:21)
--- NOTE | 2018-10-25 17:29 | ED ---
SOB HPI - General Chief Complaint: Shortness of Breath Stated Complaint: DANY Time Seen by Provider: 10/25/18 17:15 Source: patient Mode of arrival: ambulatory Limitations: no limitations - History of Present Illness Initial Comments: 48-year-old male with past medical history of alcohol abuse and COPD presenting today for chief complaint of shortness of breath. Patient states the past few days he has had increasing shortness of breath, he states it feels identical to his previous COPD exacerbation however he has not had an inhaler home he states insurance would not allow him to fill the prescription until the . Patient states he's had a cough he denies fever or chills or night sweats. Patient states he has been drinking today he states he had a bout 3 or 424 ounce beers. Patient was recently discharged from: Intoxication. Patient denies history of diabetes, hypertension, [place], CVA, cancer, DVT/PE, recent surgeries or immobilization, leg swelling, hemoptysis, chest pain. Pt states he was wheezing earlier. Remaining ROS (-), patient denies any recent upper or lower back pain, abdominal pain, nausea or vomiting, numbness or tingling, dysuria or hematuria, constipation or diarrhea, headaches or visual changes, or any other complaints. Upon arrival pt is mildly hypoxic at 93%, an HR elevated. Smell of alcohol on patients breath. Pt denies suicidal or homicidal ideations. - Related Data Home Medications Medication Instructions Recorded Confirmed Albuterol Sulfate [Proair Hfa] 2 puff INHALATION RT-Q4H PRN 04/02/18 10/25/18 Previous Rx's Medication Instructions Recorded Ipratropium-Albuterol Nebulize 3 ml INHALATION RT-Q4H PRN #60 06/04/18 [Duoneb 0.5 mg-3 mg/3 ml Soln] ampul.neb Allergies Allergy/AdvReac Type Severity Reaction Status Date / Time No Known Allergies Allergy Verified 10/25/18 17:36 Review of Systems ROS Statement: Those systems with pertinent positive or pertinent negative responses have been documented in the HPI. ROS Other: All systems not noted in ROS Statement are negative. Past Medical History Past Medical History: COPD Additional Past Medical History / Comment(s): emphysema History of Any Multi-Drug Resistant Organisms: None Reported Past Surgical History: No Surgical Hx Reported Past Anesthesia/Blood Transfusion Reactions: No Reported Reaction Past Psychological History: No Psychological Hx Reported Smoking Status: Current every day smoker Past Alcohol Use History: Abuse Past Drug Use History: None Reported General Exam - General Exam Comments Initial Comments: General: The patient is awake and alert, in no distress, and does not appear acutely ill. Eye: +3 mm pupils are equal, round and reactive to light, extra-ocular movements are intact. No nystagmus. There is normal conjunctiva bilaterally. No signs of icterus. Ears, nose, mouth and throat: There are moist mucous membranes and no oral lesions. Neck: The neck is supple, there is no tenderness or JVD. Cardiovascular: There is a regular rate and rhythm. No murmur, rub or gallop is appreciated. Respiratory: Respirations are mildly labored, breath sounds are equal. No stridor, rales, or rhonchi. No audible crackles. Expiratory wheeze, none on inspiration. Gastrointestinal: Soft, non-distended, non-tender abdomen without masses or organomegaly noted. There is no rebound or guarding present. Musculoskeletal: Normal ROM, no tenderness. Strength 5/5. Sensation intact. Pulses equal bilaterally 2+. Neurological: A&O x 3. CN II-XII intact, There are no obvious motor or sensory deficits. Coordination appears grossly intact. Speech is normal. Skin: Skin is warm and dry and no rashes or lesions are noted. No lower extremity edema. Negative Homans. Psychiatric: Cooperative Limitations: no limitations Course Vital Signs 10/25/18 10/25/18 10/25/18 16:55 17:57 18:05 Temperature 98.6 F Pulse Rate 111 H 79 80 Respiratory 16 18 18 Rate Blood Pressure 163/94 O2 Sat by Pulse 93 L Oximetry 10/25/18 10/25/18 10/25/18 20:20 20:40 20:50 Temperature Pulse Rate 84 81 83 Respiratory 14 16 16 Rate Blood Pressure 154/80 O2 Sat by Pulse 95 Oximetry 10/25/18 21:02 Temperature Pulse Rate 86 Respiratory 16 Rate Blood Pressure 132/84 O2 Sat by Pulse 95 Oximetry Medical Decision Making - Medical Decision Making 48-year-old male presented for disc difficulty breathing. Patient states he ran out of his inhaler for COPD. Patient states his dyspnea feels identical to his COPD exacerbations in the past. Patient states he had an audible wheeze earlier that day. Patient states a friend loaned him his inhaler. He states this helped with the wheezing was hearing. Patient denies leg swelling chest pain. Patient has history of cancer or blood clots. Patient denies any back pain. Patient is fall or trauma to the chest. Upon arrival patient is intoxicated, stating he has had multiple 24 ounce beers today. Blood alcohol 0.265. Patient had multiple DuoNeb small in the emergency department. Improvement of expiratory wheeze however still persistent. Patient given IV steroids. This time we'll admit patient for ALCOHOL intoxication as well as COPD exacerbation. Patient is agreeable to admission. Attending provider Dr. Ac spoke with the admitting provider Dr. Poon, he is agreeable patient care plan admission at this time. - Lab Data Result diagrams: 10/25/18 17:36 10/25/18 17:36 Lab Results 10/25/18 10/25/18 10/25/18 Range/Units 17:36 17:36 17:36 WBC 4.0 (3.8-10.6) k/uL RBC 4.90 (4.30-5.90) m/uL Hgb 15.0 (13.0-17.5) gm/dL Hct 46.5 (39.0-53.0) % MCV 95.1 (80.0-100.0) fL MCH 30.7 (25.0-35.0) pg MCHC 32.3 (31.0-37.0) g/dL RDW 13.8 (11.5-15.5) % Plt Count 184 (150-450) k/uL Neutrophils % 69 % Lymphocytes % 19 % Monocytes % 6 % Eosinophils % 1 % Basophils % 1 % Neutrophils # 2.8 (1.3-7.7) k/uL Lymphocytes # 0.8 L (1.0-4.8) k/uL Monocytes # 0.3 (0-1.0) k/uL Eosinophils # 0.1 (0-0.7) k/uL Basophils # 0.1 (0-0.2) k/uL PT 9.8 (9.0-12.0) sec INR 0.9 (<1.2) APTT 23.6 (22.0-30.0) sec Sodium 149 H (137-145) mmol/L Potassium 5.3 H (3.5-5.1) mmol/L Chloride 109 H (98-107) mmol/L Carbon Dioxide 27 (22-30) mmol/L Anion Gap 13 mmol/L BUN 7 L (9-20) mg/dL Creatinine 0.67 (0.66-1.25) mg/dL Est GFR (CKD-EPI)AfAm >90 (>60 ml/min/1.73 sqM) Est GFR (CKD-EPI)NonAf >90 (>60 ml/min/1.73 sqM) Glucose 116 H (74-99) mg/dL POC Glucose (mg/dL) (75-99) mg/dL POC Glu [employer] Scientist ID Calcium 9.1 (8.4-10.2) mg/dL Total Bilirubin 0.8 (0.2-1.3) mg/dL AST 228 H (17-59) U/L ALT 226 H (21-72) U/L Alkaline Phosphatase 73 (38-126) U/L Troponin I (0.000-0.034) ng/mL Total Protein 8.1 (6.3-8.2) g/dL Albumin 4.8 (3.5-5.0) g/dL 10/25/18 10/25/18 Range/Units 17:36 17:42 WBC (3.8-10.6) k/uL RBC (4.30-5.90) m/uL Hgb (13.0-17.5) gm/dL Hct (39.0-53.0) % MCV (80.0-100.0) fL MCH (25.0-35.0) pg MCHC (31.0-37.0) g/dL RDW (11.5-15.5) % Plt Count (150-450) k/uL Neutrophils % % Lymphocytes % % Monocytes % % Eosinophils % % Basophils % % Neutrophils # (1.3-7.7) k/uL Lymphocytes # (1.0-4.8) k/uL Monocytes # (0-1.0) k/uL Eosinophils # (0-0.7) k/uL Basophils # (0-0.2) k/uL PT (9.0-12.0) sec INR (<1.2) APTT (22.0-30.0) sec Sodium (137-145) mmol/L Potassium (3.5-5.1) mmol/L Chloride (98-107) mmol/L Carbon Dioxide (22-30) mmol/L Anion Gap mmol/L BUN (9-20) mg/dL Creatinine (0.66-1.25) mg/dL Est GFR (CKD-EPI)AfAm (>60 ml/min/1.73 sqM) Est GFR (CKD-EPI)NonAf (>60 ml/min/1.73 sqM) Glucose (74-99) mg/dL POC Glucose (mg/dL) 131 H (75-99) mg/dL POC Glu [employer] Scientist ID Kayli Casey Calcium (8.4-10.2) mg/dL Total Bilirubin (0.2-1.3) mg/dL AST (17-59) U/L ALT (21-72) U/L Alkaline Phosphatase (38-126) U/L Troponin I <0.012 (0.000-0.034) ng/mL Total Protein (6.3-8.2) g/dL Albumin (3.5-5.0) g/dL - EKG Data EKG Comments: A 12-lead EKG was performed and shows the following: Rate is 76bpm, and rhythm is normal sinus. There are normal QRS complexes and normal R-wave progression. S T segments have no elevation or depression, and LA segments appear normal. No ST elevation or depression Disposition Clinical Impression: Alcohol intoxication, COPD exacerbation, Dyspnea Disposition: ADMITTED IP TO THIS HOSP Condition: Stable Is patient prescribed a controlled substance at d/c from ED?: No Decision to Admit Reason: Admit from EC Decision Date: 10/25/18 Decision Time: 19:20
[2018-10-25 17:44] LABS: Glucose,Whole Blood 131 mg/dL (75-99)
[2018-10-25 17:47] LABS: Basophils # (A) 0.1 k/uL (0-0.2); Basophils % (A) 1 %; Eosinophils # (A) 0.1 k/uL (0-0.7); Eosinophils % (A) 1 %; HCT 46.5 % (39.0-53.0); Lymphocytes # (A) 0.8 k/uL (1.0-4.8); Lymphocytes % (A) 19 %; MCH 30.7 pg (25.0-35.0); MCHC 32.3 g/dL (31.0-37.0); MCV 95.1 fL (80.0-100.0); Mean Platelet Volume 8.2; Monocytes # (A) 0.3 k/uL (0-1.0); Monocytes % (A) 6 %; Neutrophils # (A) 2.8 k/uL (1.3-7.7); Neutrophils % (A) 69 %; Platelet Count 184 k/uL (150-450); RDW 13.8 % (11.5-15.5)
[2018-10-25 17:53] LABS: ALT 226 U/L (21-72); AST 228 U/L (17-59); Albumin 4.8 g/dL (3.5-5.0); Alkaline Phosphatase 73 U/L (38-126); Anion Gap 13 mmol/L; Blood Urea Nitrogen 7 mg/dL (9-20); Calcium 9.1 mg/dL (8.4-10.2); Carbon Dioxide 27 mmol/L (22-30); Chloride 109 mmol/L (98-107); Glucose 116 mg/dL (74-99); Potassium 5.3 mmol/L (3.5-5.1); Sodium 149 mmol/L (137-145); Total Bilirubin 0.8 mg/dL (0.2-1.3); Total Protein 8.1 g/dL (6.3-8.2)
[2018-10-25 17:54] LABS: INR 0.9 (<1.2); Partial Thromboplastin Time 23.6 sec (22.0-30.0); Prothrombin Time 9.8 sec (9.0-12.0)
--- NOTE | 2018-10-25 18:20 | XR ---
EXAMINATION TYPE: XR chest 2V DATE OF EXAM: 10/25/2018 COMPARISON: 10/24/2018 yesterday HISTORY: Short of breath TECHNIQUE: Frontal and lateral views of the chest are obtained. FINDINGS: Heart and mediastinum are normal. Lungs are clear. Diaphragm is normal. There are chest le ads. Bony thorax appears intact. IMPRESSION: Normal chest. No change.
[2018-10-25] MEDS ORDERED: NALOXONE 0.4 MG/ML 1 ML VIAL IV PRN (19:44)
[2018-10-25] MEDS ORDERED: LORazepam 2 MG/ML INJ IV PRN ×3 (19:46)
[2018-10-25] MEDS ORDERED: THIAMINE 100 MG/ML 2 ML VIAL IM STA (19:46)
[2018-10-25] MEDS ORDERED: IPRATROPIUM-ALBUTEROL 3 ML NEB INHALATION PRN (19:47)
[2018-10-25 21:41] VITALS: BMI 28.1
[2018-10-25] MEDS: NICOTINE 21MG/24HR PATCH TRANSDERM SCH (22:24)
[2018-10-26] MEDS ORDERED: ACETAMINOPHEN TAB 500 MG TAB PO PRN (00:38)
[2018-10-26] MEDS ORDERED: ALPRAZolam 0.25 MG TAB PO PRN (00:38)
[2018-10-26] MEDS ORDERED: HYDROcodone/APAP 5-325MG 1 EACH TAB PO PRN (00:38)
[2018-10-26] MEDS: HEPARIN SODIUM,PORCINE 5,000 UNIT/ML 1 ML VIAL SQ SCH ×3 (01:23→20:34)
[2018-10-26] MEDS: methylPREDNISolone SOD SUCCI 125 MG/2 ML VIAL IV SCH ×5 (01:23→23:00)
[2018-10-26 03:03] LABS: ALT 201 U/L (21-72); AST 175 U/L (17-59); Albumin 4.3 g/dL (3.5-5.0); Alkaline Phosphatase 64 U/L (38-126); Anion Gap 12 mmol/L; Blood Urea Nitrogen 9 mg/dL (9-20); Carbon Dioxide 24 mmol/L (22-30); Chloride 104 mmol/L (98-107); Glucose 215 mg/dL (74-99); Potassium 4.2 mmol/L (3.5-5.1); Sodium 140 mmol/L (137-145); Total Bilirubin 0.6 mg/dL (0.2-1.3); Total Protein 7.2 g/dL (6.3-8.2)
[2018-10-26 06:58] LABS: Glucose,Whole Blood 121 mg/dL (75-99)
[2018-10-26] MEDS: SYMBICORT 160-4.5 MCG INHALER INHALATION SCH ×2 (07:47→20:02)
[2018-10-26] MEDS: INSULIN ASPART (NovoLOG) 100 UNIT/ML VIAL SQ SCH ×4 (07:51→20:34)
--- NOTE | 2018-10-26 07:57 | HP ---
HISTORY AND PHYSICAL DATE OF SERVICE: 10/25/2018 CHIEF COMPLAINTS: Shortness of breath. HISTORY OF PRESENT ILLNESS: This 48-year-old gentleman with a past medical history of multiple medical problems including history of COPD history, emphysema, history of nicotine dependence, history of alcohol abuse being followed by Dr. Campos in the outpatient setting, apparently passed out. The patient was apparently sober for quite some time, but the patient for the last couple weeks the patient has been drinking too much and after having passed out, the patient was taken by the principal librarian to the [facility] and discharged and subsequently patient had increased shortness of breath and patient apparently drinking about 3 or 4 24 ounces beers and the patient came to [facility] and admitted for further evaluation and treatment. The sodium was 140, potassium 5.3. LFTs elevated. There is no history of fever, rigors or chills. No history of headache, loss of consciousness, seizures at this time. PAST MEDICAL HISTORY: History of COPD, emphysema, history of EtOH, nicotine dependence. MEDICATIONS: Home medications are: 1. DuoNeb q.i.d. p.r.n. 2. ProAir p.r.n. ALLERGIES: None. FAMILY HISTORY: No history of heart disease or strokes in the family. SOCIAL HISTORY: History of smoking, alcohol as mentioned. REVIEW OF SYSTEMS: ENT: No diminished hearing or diminished vision. CARDIOVASCULAR: As mentioned earlier. RESPIRATORY: As mentioned earlier. GI no nausea or vomiting. : No dysuria. NERVOUS SYSTEM: No numbness or weakness. ALLERGY/IMMUNOLOGY: No asthma or hayfever. MUSCULOSKELETAL: As mentioned earlier. HEMATOLOGY/ONCOLOGY: No history of anemia. ENDOCRINE: No history of diabetes or hypothyroidism. CONSTITUTIONAL: As mentioned earlier. DERMATOLOGY: Negative. RHEUMATOLOGY: Negative. PSYCHIATRY: As mentioned earlier. PHYSICAL EXAMINATION: Alert and oriented times three. Pulse is 96, blood pressure 128/74, respiration 16, temperature 98.4, pulse ox 94% on room air. HEENT: Conjunctivae normal. Oral mucosa moist. NECK: No jugular venous distention. No carotid bruit. No lymph node enlargement. Cardiovascular system: S1, S2. RESPIRATORY: Breath sounds diminished in the bases. A few scattered rhonchi and crackles. Expiratory wheezing also present. ABDOMEN: Soft, nontender. No mass palpable. LEGS: No edema. No swelling. CENTRAL NERVOUS SYSTEM: Higher functions as mentioned earlier. Moves all four extremities. No focal deficits. Lymphatics: No lymph nodes palpable in the neck, axillae or groin. JOINTS: No active deforming arthropathy. LABS: CBC within normal limits. Sodium 140, potassium 5.3. Glucose 116 and AST is 228 and ALT is 226. Chest x-ray no acute abnormalities. ASSESSMENT: 1. Chronic obstructive pulmonary disease acute exacerbation, acute purulent tracheobronchitis. 2. History of EtOH. 3. History of nicotine dependence. 4. Alcoholic hepatitis. 5. Hypernatremia. 6. Hyperkalemia. RECOMMENDATIONS AND DISCUSSION: In this 48-year-old gentleman who presented with multiple complex medical issues, we will monitor the patient closely. Continue the current medications, management and symptomatic treatment. We will initiate IV fluids. CIWA protocol. Bronchodilators. Otherwise smoking cessation advised. 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 Otherwise we will continue to monitor. DVT prophylaxis. See orders for details. Prognosis guarded. Further recommendations to follow. A copy of dictation being forwarded to Dr. Campos who is the primary care physician. MMODL / IJN: [id number] / MTDD
[2018-10-26] MEDS ORDERED: predniSONE 20 MG TAB PO SCH (09:00)
[2018-10-26] MEDS: NICOTINE 21MG/24HR PATCH TRANSDERM SCH (09:15)
[2018-10-26] MEDS: PANTOPRAZOLE 40 MG TABLET PO SCH (09:24)
[2018-10-26 11:14] LABS: Glucose,Whole Blood 208 mg/dL (75-99)
[2018-10-26] MEDS: THIAMINE 100 MG TAB PO SCH ×2 (12:54→17:53)
[2018-10-26 17:02] LABS: Glucose,Whole Blood 134 mg/dL (75-99)
[2018-10-26 20:04] LABS: Glucose,Whole Blood 143 mg/dL (75-99)
[2018-10-26] MEDS ORDERED: cloNIDine HCL 0.1 MG TAB PO PRN (20:32)
[2018-10-26] MEDS: cloNIDine HCL 0.1 MG TAB PO SCH (23:01)
--- NOTE | 2018-10-26 23:30 | PN ---
PROGRESS NOTE DATE OF SERVICE: 10/26/2018 This is a 48-year-old gentleman who was admitted with COPD acute exacerbation, acute tracheobronchitis, also history of EtOH. No chest pain. No palpitations. No fever. PHYSICAL EXAM: Alert and oriented x3. Pulse 76, blood pressure 167/78, respiration 16, temperature 98.2, pulse ox 94% on room air. HEENT: Conjunctivae normal. NECK: No JVD. CARDIOVASCULAR: S1, S2 muffled. RESPIRATORY: Diminished breath sounds in the bases. No rhonchi, no crackles. ABDOMEN: Soft, nontender. No mass palpable. LEGS: No edema. No swelling. NERVOUS SYSTEM: Higher functions as mentioned. Moves all four limbs. LYMPHATICS: No lymph node in neck or axilla. SKIN: No ulcer, rash or bleeding. LABS: Sodium 140, potassium 4.2. Accu-Cheks 208 and 143. AST, ALT is elevated. CBC noted. ASSESSMENT: 1. Chronic obstructive pulmonary disease exacerbation with acute exacerbation, acute tracheobronchitis. 2. History of EtOH. 3. Increased AST, ALT, possibly alcoholic hepatitis. 4. History of nicotine dependence. 5. Hyponatremia. 6. Hyperkalemia. RECOMMENDATIONS AND DISCUSSION: Continue current management, continue to monitor, continue symptomatic treatment. Continue the antibiotics. Continue the bronchodilators. Continue the rest of medications. Recommend outpatient evaluation and alcohol rehab also once the patient is better. Further recommendations to follow. MMODL / IJN: [id number] /
[2018-10-27 07:02] LABS: Glucose,Whole Blood 131 mg/dL (75-99)
[2018-10-27] MEDS: SYMBICORT 160-4.5 MCG INHALER INHALATION SCH (07:34)
[2018-10-27 07:48] LABS: Basophils % (A) 0 %; Eosinophils % (A) 0 %; HCT 43.2 % (39.0-53.0); HGB 14.1 gm/dL (13.0-17.5); Lymphocytes # (A) 0.9 k/uL (1.0-4.8); Lymphocytes % (A) 6 %; MCH 31.4 pg (25.0-35.0); MCHC 32.6 g/dL (31.0-37.0); MCV 96.4 fL (80.0-100.0); Mean Platelet Volume 8.9; Monocytes # (A) 0.6 k/uL (0-1.0); Monocytes % (A) 4 %; Neutrophils % (A) 89 %; Platelet Count 146 k/uL (150-450); RBC 4.48 m/uL (4.30-5.90); RDW 13.9 % (11.5-15.5); WBC 14.6 k/uL (3.8-10.6)
[2018-10-27 08:11] LABS: ALT 167 U/L (21-72); AST 114 U/L (17-59); Albumin 4.1 g/dL (3.5-5.0); Alkaline Phosphatase 52 U/L (38-126); Anion Gap 7 mmol/L; Blood Urea Nitrogen 15 mg/dL (9-20); Calcium 9.2 mg/dL (8.4-10.2); Carbon Dioxide 25 mmol/L (22-30); Chloride 105 mmol/L (98-107); Glucose 128 mg/dL (74-99); Potassium 4.5 mmol/L (3.5-5.1); Sodium 137 mmol/L (137-145); Total Bilirubin 1.2 mg/dL (0.2-1.3)
[2018-10-27] MEDS: NICOTINE 21MG/24HR PATCH TRANSDERM SCH (10:25)
[2018-10-27] MEDS: methylPREDNISolone SOD SUCCI 125 MG/2 ML VIAL IV SCH (10:25)
[2018-10-27] MEDS: cloNIDine HCL 0.1 MG TAB PO SCH (10:26)
[2018-10-27] MEDS: INSULIN ASPART (NovoLOG) 100 UNIT/ML VIAL SQ SCH ×2 (10:26→12:00)
[2018-10-27] MEDS: PANTOPRAZOLE 40 MG TABLET PO SCH (10:26)
[2018-10-27] MEDS: HEPARIN SODIUM,PORCINE 5,000 UNIT/ML 1 ML VIAL SQ SCH (10:26)
[2018-10-27 11:22] LABS: Glucose,Whole Blood 125 mg/dL (75-99)
[2018-10-27 13:16] VITALS: BP 137/85; PULSE 58; RESP 16; TEMP 97.3
--- NOTE | 2018-10-28 05:22 | DS ---
DISCHARGE SUMMARY DATE OF SERVICE: 10/27/2018 FINAL DIAGNOSES: 1. Chronic obstructive pulmonary disease acute exacerbation with acute purulent tracheobronchitis. 2. History of EtOH. 3. Increased AST, ALT, possibly alcoholic hepatitis. 4. History of nicotine dependence. 5. Hypernatremia. 6. Hyperkalemia. DISCHARGE DISPOSITION: The patient will be discharged in stable condition with guarded prognosis. HISTORY OF PRESENT ILLNESS: This 48-year-old gentleman with a past medical history of multiple medical problems including COPD acute exacerbation as well as features of EtOH. Patient treated symptomatically. Patient improved significantly. On exam, vital signs are stable. CARDIOVASCULAR: S1, S2 muffled. ABDOMEN: Soft. NERVOUS SYSTEM: No focal deficits. CHEST: A few scattered rhonchi. However recommend the patient to follow up closely with primary physician, Dr. Campos and as well as EtOH rehab also. DISCHARGE ADVICE: 1. Diet is cardiac. 2. Activity limited until followup. 3. Follow up with Dr. Campos in 2 to 3 days. 4. Attend AA meetings and EtOH rehab. MEDICATIONS: 1. Albuterol 2 puffs q.4 p.r.n. 2. Ativan 1 mg b.i.d. p.r.n. 3. Catapres 0.1 p.o. b.i.d. 4. DuoNeb q.i.d. and p.r.n. 5. Habitrol 14 daily. 6. Medrol Dosepak. 7. Symbicort 160/4.5 two puffs b.i.d. 8. Tylenol p.r.n. 9. Vitamin B1, 100 mg p.o. daily. Once again, the patient will be discharged in a stable condition with guarded prognosis. MMODL / IJN: [id number] /
== END 2018-10-27 15:18 | disposition home or self-care (01) ==
LOC: EC 16:53 → 3NMEDONC 19:42
PROVIDERS: ADMIT Hospitalist; ATTEND Hospitalist
DX: J44.1 Chronic obstructive pulmonary disease with (acute) exacerbation (principal); J44.0 Chronic obstructive pulmonary disease with (acute) lower respiratory infection; J20.9 Acute bronchitis, unspecified; E87.0 Hyperosmolality and hypernatremia; E87.5 Hyperkalemia; F10.129 Alcohol abuse with intoxication, unspecified; R74.0 Nonspecific elevation of levels of transaminase and lactic acid dehydrogenase [LDH]; T48.6X6A Underdosing of antiasthmatics, initial encounter; E87.1 Hypo-osmolality and hyponatremia; Y90.8 Blood alcohol level of 240 mg/100 ml or more; Z91.128 Patient's intentional underdosing of medication regimen for other reason; F17.200 Nicotine dependence, unspecified, uncomplicated
CPT/HCPCS: 96376 ×2; 96361 ×3; 96372 ×2; 96375; 96374; 99285; 36415; 94640 ×5; 93005; 80053 ×3; 84484; 85025 ×2; 85610; 85730; 71046; G0378 ×3; G0480; S4990 ×3; J2060; J1644; J2930 ×3; J3411; 80320

== ENCOUNTER 2019-04-24 09:04 | Emergency (ER) | payer OTHER ==
[2019-04-24] MEDS ORDERED: IPRATROPIUM-ALBUTEROL 3 ML NEB INHALATION STA ×2 (09:31→11:04)
[2019-04-24] MEDS ORDERED: SODIUM CHLORIDE 0.9% 1,000 ML IV STA (09:31)
[2019-04-24] MEDS ORDERED: methylPREDNISolone SOD SUCCI 125 MG/2 ML VIAL IV STA (09:31)
--- NOTE | 2019-04-24 09:35 | ED ---
SOB HPI - General Chief Complaint: Shortness of Breath Stated Complaint: SOB Time Seen by Provider: 04/24/19 09:20 Source: patient, RN notes reviewed Mode of arrival: ambulatory Limitations: no limitations - History of Present Illness Initial Comments: This is a 40-year-old male with a history of COPD who states she's had shortness of breath for the past couple days. No fevers chills nausea vomiting sweats no overt abnormal phlegm production no peripheral edema. He states it feels similar to his previous COPD exacerbations. He states his home medications are not helping. No other modifying factors MD Complaint: shortness of breath - Related Data Home Medications Medication Instructions Recorded Confirmed Albuterol Sulfate [Proair Hfa] 2 puff INHALATION RT-Q4H PRN 04/02/18 04/24/19 Previous Rx's Medication Instructions Recorded Ipratropium-Albuterol Nebulize 3 ml INHALATION RT-Q4H PRN #60 06/04/18 [Duoneb 0.5 mg-3 mg/3 ml Soln] ampul.neb Budesonide-Formot 160-4.5 Mcg 2 puff INHALATION RT-BID #1 puff 10/27/18 [Symbicort 160-4.5 Mcg Inhaler] methylPREDNISolone Dose Pack 4 mg PO DIRECTED #21 package 04/24/19 [Medrol Dose Pack] Allergies Allergy/AdvReac Type Severity Reaction Status Date / Time No Known Allergies Allergy Verified 04/24/19 09:24 Review of Systems ROS Statement: Those systems with pertinent positive or pertinent negative responses have been documented in the HPI. ROS Other: All systems not noted in ROS Statement are negative. Past Medical History Past Medical History: COPD Additional Past Medical History / Comment(s): emphysema History of Any Multi-Drug Resistant Organisms: None Reported Past Surgical History: No Surgical Hx Reported Past Anesthesia/Blood Transfusion Reactions: No Reported Reaction Past Psychological History: No Psychological Hx Reported Smoking Status: Current every day smoker Past Alcohol Use History: Abuse Past Drug Use History: None Reported General Exam - General Exam Comments Initial Comments: This is a well-developed well-nourished awake alert oriented times 3 male Limitations: no limitations General appearance: anxious, in distress Head exam: Present: atraumatic, normocephalic, normal inspection Eye exam: Present: normal appearance, PERRL, EOMI. Absent: scleral icterus, conjunctival injection, periorbital swelling ENT exam: Present: normal exam, mucous membranes moist Neck exam: Present: normal inspection, full ROM, other (No stridor JVD or bruits). Absent: tenderness, meningismus, lymphadenopathy Respiratory exam: Present: wheezes, accessory muscle use, decreased breath sounds. Absent: respiratory distress, rales, rhonchi, stridor Cardiovascular Exam: Present: regular rate, normal rhythm, normal heart sounds. Absent: systolic murmur, diastolic murmur, rubs, gallop, clicks GI/Abdominal exam: Present: soft, normal bowel sounds. Absent: distended, tenderness, guarding, rebound, rigid Extremities exam: Present: normal inspection, full ROM, normal capillary refill. Absent: tenderness, pedal edema, joint swelling, calf tenderness Back exam: Present: normal inspection Neurological exam: Present: alert, oriented X3, CN II-XII intact Psychiatric exam: Present: normal affect, normal mood Skin exam: Present: warm, dry, intact, normal color. Absent: rash Course Vital Signs 04/24/19 04/24/19 04/24/19 09:15 09:27 09:30 Temperature 97.9 F Pulse Rate 85 95 Respiratory 16 16 8 L Rate Blood Pressure 127/87 O2 Sat by Pulse 97 96 Oximetry 04/24/19 04/24/19 04/24/19 09:35 09:49 10:00 Temperature Pulse Rate 65 79 78 Respiratory 22 22 Rate Blood Pressure 126/86 126/86 O2 Sat by Pulse 95 97 Oximetry 04/24/19 04/24/19 04/24/19 10:30 11:00 11:14 Temperature Pulse Rate 53 L 89 87 Respiratory 22 22 Rate Blood Pressure 133/87 125/92 O2 Sat by Pulse 96 80 L Oximetry 04/24/19 11:23 Temperature Pulse Rate 80 Respiratory Rate Blood Pressure O2 Sat by Pulse Oximetry Medical Decision Making - Medical Decision Making Patient showing much improved after treatment that was rendered. He will be discharged with oral steroids. Patient does have adequate medications at home. - Lab Data Result diagrams: 04/24/19 09:43 04/24/19 09:43 Lab Results 04/24/19 04/24/19 04/24/19 Range/Units 09:43 09:43 09:43 WBC 9.0 (3.8-10.6) k/uL RBC 4.85 (4.30-5.90) m/uL Hgb 15.2 (13.0-17.5) gm/dL Hct 44.6 (39.0-53.0) % MCV 91.9 (80.0-100.0) fL MCH 31.2 (25.0-35.0) pg MCHC 34.0 (31.0-37.0) g/dL RDW 12.2 (11.5-15.5) % Plt Count 209 (150-450) k/uL Neutrophils % (Manual) 71 % Band Neutrophils % 1 % Lymphocytes % (Manual) 17 % Monocytes % (Manual) 10 % Basophils % (Manual) 1 % Neutrophils # (Manual) 6.40 (1.3-7.7) k/uL Lymphocytes # (Manual) 1.53 (1.0-4.8) k/uL Monocytes # (Manual) 0.90 (0-1.0) k/uL Basophils # (Manual) 0.09 (0-0.2) k/uL Nucleated RBCs 0 (0-0) /100 WBC Manual Slide Review Performed RBC Morphology Normal PT (9.0-12.0) sec INR (<1.2) APTT (22.0-30.0) sec Sodium 138 (137-145) mmol/L Potassium 3.6 (3.5-5.1) mmol/L Chloride 103 (98-107) mmol/L Carbon Dioxide 27 (22-30) mmol/L Anion Gap 8 mmol/L BUN 8 L (9-20) mg/dL Creatinine 0.71 (0.66-1.25) mg/dL Est GFR (CKD-EPI)AfAm >90 (>60 ml/min/1.73 sqM) Est GFR (CKD-EPI)NonAf >90 (>60 ml/min/1.73 sqM) Glucose 111 H (74-99) mg/dL Calcium 8.9 (8.4-10.2) mg/dL Magnesium 1.9 (1.6-2.3) mg/dL Total Bilirubin 1.0 (0.2-1.3) mg/dL AST 49 (17-59) U/L ALT 75 H (21-72) U/L Alkaline Phosphatase 58 (38-126) U/L Creatine Kinase 39 L (55-170) U/L Troponin I (0.000-0.034) ng/mL NT-Pro-B Natriuret Pep 43 pg/mL Total Protein 7.3 (6.3-8.2) g/dL Albumin 4.0 (3.5-5.0) g/dL 04/24/19 04/24/19 Range/Units 09:43 09:43 WBC (3.8-10.6) k/uL RBC (4.30-5.90) m/uL Hgb (13.0-17.5) gm/dL Hct (39.0-53.0) % MCV (80.0-100.0) fL MCH (25.0-35.0) pg MCHC (31.0-37.0) g/dL RDW (11.5-15.5) % Plt Count (150-450) k/uL Neutrophils % (Manual) % Band Neutrophils % % Lymphocytes % (Manual) % Monocytes % (Manual) % Basophils % (Manual) % Neutrophils # (Manual) (1.3-7.7) k/uL Lymphocytes # (Manual) (1.0-4.8) k/uL Monocytes # (Manual) (0-1.0) k/uL Basophils # (Manual) (0-0.2) k/uL Nucleated RBCs (0-0) /100 WBC Manual Slide Review RBC Morphology PT 9.8 (9.0-12.0) sec INR 0.9 (<1.2) APTT 23.8 (22.0-30.0) sec Sodium (137-145) mmol/L Potassium (3.5-5.1) mmol/L Chloride (98-107) mmol/L Carbon Dioxide (22-30) mmol/L Anion Gap mmol/L BUN (9-20) mg/dL Creatinine (0.66-1.25) mg/dL Est GFR (CKD-EPI)AfAm (>60 ml/min/1.73 sqM) Est GFR (CKD-EPI)NonAf (>60 ml/min/1.73 sqM) Glucose (74-99) mg/dL Calcium (8.4-10.2) mg/dL Magnesium (1.6-2.3) mg/dL Total Bilirubin (0.2-1.3) mg/dL AST (17-59) U/L ALT (21-72) U/L Alkaline Phosphatase (38-126) U/L Creatine Kinase (55-170) U/L Troponin I <0.012 (0.000-0.034) ng/mL NT-Pro-B Natriuret Pep pg/mL Total Protein (6.3-8.2) g/dL Albumin (3.5-5.0) g/dL - EKG Data -: EKG Interpreted by Me EKG shows normal: sinus rhythm (Normal sinus rhythm a rate 74. Ago 138 QRS duration 108 QT/QTC 390/432 this is a normal-appearing EKG.) - Radiology Data Radiology results: report reviewed (I did review the imaging and report no acute findings.), image reviewed Disposition Clinical Impression: Acute exacerbation of chronic obstructive airways disease Disposition: HOME SELF-CARE Condition: Good Instructions (If sedation given, give patient instructions): COPD (Chronic Obstructive Pulmonary Disease) (ED) Additional Instructions: Your prescription was sent to your preferred [facility] pharmacy Prescriptions: methylPREDNISolone Dose Pack [Medrol Dose Pack] 4 mg PO DIRECTED #21 package Is patient prescribed a controlled substance at d/c from ED?: No Referrals: Zackery Campos MD [Primary Care Provider] - 1-2 days
[2019-04-24 10:08] LABS: ALT 75 U/L (21-72); AST 49 U/L (17-59); African American GFR (CKD) >90 (>60 ml/min/1.73 sqM); Alkaline Phosphatase 58 U/L (38-126); Anion Gap 8 mmol/L; Blood Urea Nitrogen 8 mg/dL (9-20); Calcium 8.9 mg/dL (8.4-10.2); Carbon Dioxide 27 mmol/L (22-30); Chloride 103 mmol/L (98-107); Creatine Kinase 39 U/L (55-170); Glucose 111 mg/dL (74-99); INR 0.9 (<1.2); Magnesium 1.9 mg/dL (1.6-2.3); Partial Thromboplastin Time 23.8 sec (22.0-30.0); Potassium 3.6 mmol/L (3.5-5.1); Prothrombin Time 9.8 sec (9.0-12.0); Sodium 138 mmol/L (137-145); Total Protein 7.3 g/dL (6.3-8.2)
[2019-04-24 10:09] LABS: HCT 44.6 % (39.0-53.0); HGB 15.2 gm/dL (13.0-17.5); MCH 31.2 pg (25.0-35.0); MCV 91.9 fL (80.0-100.0); Mean Platelet Volume 7.6; Platelet Count 209 k/uL (150-450); RBC 4.85 m/uL (4.30-5.90); RDW 12.2 % (11.5-15.5)
[2019-04-24 10:27] LABS: Band Neutrophils % 1 %; Basophils # (M) 0.09 k/uL (0-0.2); Lymphocytes # (M) 1.53 k/uL (1.0-4.8); Neutrophils % (M) 71 %; Nucleated Red Blood Cells 0 /100 WBC (0-0); Total Cells Counted 100
--- NOTE | 2019-04-24 10:58 | XR ---
EXAMINATION TYPE: XR chest 2V DATE OF EXAM: 04/24/2019 COMPARISON: Prior chest x-ray 10/25/2018 HISTORY: Difficulty breathing, shortness of breath TECHNIQUE: Frontal and lateral views of the chest are obtained. FINDINGS: There are overlying cardiac leads. Prominent lung volumes are again noted suggesting COPD. There is no focal air space opacity, pleural effusion, or pneumothorax seen. The cardiac silhouette size is within normal limits. The osseous structures are intact. IMPRESSION: No acute cardiopulmonary process.
[2019-04-24 11:54] VITALS: BP 128/90; PULSE 64; RESP 16; TEMP 98.2
== END 2019-04-24 11:54 | disposition home or self-care (01) ==
LOC: EC 09:04
DX: J44.1 Chronic obstructive pulmonary disease with (acute) exacerbation (principal); F17.200 Nicotine dependence, unspecified, uncomplicated
CPT/HCPCS: 36415; 94640 ×2; 93005; 83880; 80053; 82550; 83735; 84484; 85025; 85610; 85730; 71046; 99285; 96374; 96361 ×2; J2930

== ENCOUNTER 2019-04-25 09:49 | Observation (INO) | payer OTHER ==
[2019-04-25] MEDS ORDERED: methylPREDNISolone SOD SUCCI 125 MG/2 ML VIAL IV STA (10:30)
[2019-04-25] MEDS ORDERED: IPRATROPIUM-ALBUTEROL 3 ML NEB INHALATION STA ×2 (10:30→11:44)
[2019-04-25 10:44] LABS: Basophils # (A) 0.4 k/uL (0-0.2); Basophils % (A) 3 %; Eosinophils # (A) 0.1 k/uL (0-0.7); Eosinophils % (A) 0 %; HCT 42.6 % (39.0-53.0); HGB 15.1 gm/dL (13.0-17.5); Lymphocytes # (A) 1.9 k/uL (1.0-4.8); Lymphocytes % (A) 14 %; MCH 31.7 pg (25.0-35.0); MCHC 35.3 g/dL (31.0-37.0); MCV 89.7 fL (80.0-100.0); Mean Platelet Volume 6.8; Monocytes # (A) 1.1 k/uL (0-1.0); Monocytes % (A) 8 %; Neutrophils # (A) 10.6 k/uL (1.3-7.7); Neutrophils % (A) 75 %; Platelet Count 238 k/uL (150-450); RBC 4.75 m/uL (4.30-5.90); RDW 12.1 % (11.5-15.5); WBC 14.2 k/uL (3.8-10.6)
[2019-04-25 10:52] LABS: INR 0.9 (<1.2); Partial Thromboplastin Time 23.2 sec (22.0-30.0); Prothrombin Time 9.6 sec (9.0-12.0)
[2019-04-25 10:53] LABS: ALT 62 U/L (21-72); AST 39 U/L (17-59); African American GFR (CKD) >90 (>60 ml/min/1.73 sqM); Albumin 3.8 g/dL (3.5-5.0); Alkaline Phosphatase 53 U/L (38-126); Anion Gap 9 mmol/L; Blood Urea Nitrogen 10 mg/dL (9-20); Calcium 8.8 mg/dL (8.4-10.2); Carbon Dioxide 25 mmol/L (22-30); Chloride 107 mmol/L (98-107); Glucose 102 mg/dL (74-99); Potassium 3.7 mmol/L (3.5-5.1); Sodium 141 mmol/L (137-145); Total Bilirubin 0.4 mg/dL (0.2-1.3); Total Protein 6.9 g/dL (6.3-8.2)
--- NOTE | 2019-04-25 11:07 | ED ---
SOB HPI - General Chief Complaint: Shortness of Breath Stated Complaint: SOB Time Seen by Provider: 04/25/19 10:09 Source: patient Mode of arrival: ambulatory Limitations: no limitations - History of Present Illness Initial Comments: 48-year-old male history of COPD presents emergency department for chief complaint of shortness of breath. Patient states he was discharged from our facility yesterday after experiencing what he felt was a COPD exacerbation. Patient states she has had multiple exacerbations in the past and this felt identical. Patient states he had difficulty taking deep breaths air noticed wheezing. Patient denies any increasing cough he denies any discolored sputum production hemoptysis leg swelling patient denies any chest pain fevers or recent upper respiratory infection. Patient denies any history of DVT or pulmonary embolism denies any history of myocardial infarction diabetes or hypertension. Patient states he recently moved from [place] left his medications at home-he feels this may be a concerning factor to his free presentation to the emergency department. Remaining review of systems negative. Upon arrival [place] ent is noted to be hypoxic at 94% there is no retractions or abdominal breathing. However there is audible wheezing. - Related Data Home Medications Medication Instructions Recorded Confirmed Albuterol Sulfate [Proair Hfa] 2 puff INHALATION RT-Q4H PRN 04/02/18 04/25/19 methylPREDNISolone Dose Pack See Taper PO DIRECTED 04/25/19 04/25/19 [Medrol Dose Pack] Previous Rx's Medication Instructions Recorded Ipratropium-Albuterol Nebulize 3 ml INHALATION RT-Q4H PRN #60 06/04/18 [Duoneb 0.5 mg-3 mg/3 ml Soln] ampul.neb Budesonide-Formot 160-4.5 Mcg 2 puff INHALATION RT-BID #1 puff 10/27/18 [Symbicort 160-4.5 Mcg Inhaler] Allergies Allergy/AdvReac Type Severity Reaction Status Date / Time No Known Allergies Allergy Verified 04/25/19 10:11 Review of Systems ROS Statement: Those systems with pertinent positive or pertinent negative responses have been documented in the HPI. ROS Other: All systems not noted in ROS Statement are negative. Past Medical History Past Medical History: COPD Additional Past Medical History / Comment(s): emphysema History of Any Multi-Drug Resistant Organisms: None Reported Past Surgical History: No Surgical Hx Reported Past Anesthesia/Blood Transfusion Reactions: No Reported Reaction Past Psychological History: No Psychological Hx Reported Smoking Status: Current every day smoker Past Alcohol Use History: Abuse Past Drug Use History: None Reported General Exam - General Exam Comments Initial Comments: General: The patient is awake and alert, in no distress, and does not appear acutely ill. Eye: +3 mm pupils are equal, round and reactive to light, extra-ocular movements are intact. No nystagmus. There is normal conjunctiva bilaterally. No signs of icterus. Ears, nose, mouth and throat: There are moist mucous membranes and no oral lesions. Neck: The neck is supple, there is no tenderness or JVD. Cardiovascular: There is a regular rate and rhythm. No murmur, rub or gallop is appreciated. Respiratory: S patient to mildly labor however breath sounds are equal. Significant extremities slight inspiratory wheeze. There is no noted stridor, rales, or rhonchi. Gastrointestinal: non-distended, non-tender abdomen without masses or organomegaly noted. There is no rebound or guarding present. Musculoskeletal: Normal ROM, no tenderness. Strength 5/5. Sensation intact. Radial pulses equal bilaterally 2+. Neurological: A&O x 3. CN II-XII intact grossly, There are no obvious motor or sensory deficits. Coordination appears grossly intact. Speech is normal. Skin: Skin is warm and dry and no rashes or lesions are noted. No LE edema. Psychiatric: Cooperative, appropriate mood & affect, normal judgment. Limitations: no limitations Course Vital Signs 04/25/19 04/25/19 04/25/19 09:51 09:53 10:01 Temperature 97.3 F L 98.2 F Pulse Rate 89 87 Respiratory 20 12 12 Rate Blood Pressure 154/92 132/98 O2 Sat by Pulse 94 L 94 L Oximetry 04/25/19 04/25/19 10:55 11:04 Temperature Pulse Rate 76 68 Respiratory Rate Blood Pressure O2 Sat by Pulse Oximetry - Reevaluation(s) Reevaluation #1: She received 2 DuoNeb treatments the emergency department upon reevaluation patient continues to have significant expiratory wheeze and diminished air movement. CXR WNL. No focal consolidations, afebrile. Denies CP. Patient will be admitted to observation for scheduled/PRN duoneb treatments. 04/25/19 12:16 Medical Decision Making - Medical Decision Making 48-year-old male presenting for shortness of breath. Patient has history of COPD. Patient denies any chest pain. Patient is noted be slightly hypoxic at 94% upon arrival on room air. Patient has no leg swelling or signs fluid overload on examination. No history of DVT. EKG no acute findings. Initial troponin negative. Chest x-ray clear for any focal consolidations. Patient was given 2 DuoNeb treatments with minimal improvement in his lung sounds. At this time I feel patient would benefit from admission for scheduled and when necessary DuoNeb treatments. Patient was given cimetidine the emergency department. Patient states he is doing better however after the treatment than when he arrived. Dr. Quiroz accepted admission. Discussed case and admission with attending Dr. Navarro who put in placement order. - Lab Data Result diagrams: 04/25/19 10:23 04/25/19 10:23 Lab Results 04/25/19 04/25/19 04/25/19 Range/Units 10:23 10:23 10:23 WBC 14.2 H (3.8-10.6) k/uL RBC 4.75 (4.30-5.90) m/uL Hgb 15.1 (13.0-17.5) gm/dL Hct 42.6 (39.0-53.0) % MCV 89.7 (80.0-100.0) fL MCH 31.7 (25.0-35.0) pg MCHC 35.3 (31.0-37.0) g/dL RDW 12.1 (11.5-15.5) % Plt Count 238 (150-450) k/uL Neutrophils % 75 % Lymphocytes % 14 % Monocytes % 8 % Eosinophils % 0 % Basophils % 3 % Neutrophils # 10.6 H (1.3-7.7) k/uL Lymphocytes # 1.9 (1.0-4.8) k/uL Monocytes # 1.1 H (0-1.0) k/uL Eosinophils # 0.1 (0-0.7) k/uL Basophils # 0.4 H (0-0.2) k/uL PT 9.6 (9.0-12.0) sec INR 0.9 (<1.2) APTT 23.2 (22.0-30.0) sec Sodium 141 (137-145) mmol/L Potassium 3.7 (3.5-5.1) mmol/L Chloride 107 (98-107) mmol/L Carbon Dioxide 25 (22-30) mmol/L Anion Gap 9 mmol/L BUN 10 (9-20) mg/dL Creatinine 0.61 L (0.66-1.25) mg/dL Est GFR (CKD-EPI)AfAm >90 (>60 ml/min/1.73 sqM) Est GFR (CKD-EPI)NonAf >90 (>60 ml/min/1.73 sqM) Glucose 102 H (74-99) mg/dL Calcium 8.8 (8.4-10.2) mg/dL Total Bilirubin 0.4 (0.2-1.3) mg/dL AST 39 (17-59) U/L ALT 62 (21-72) U/L Alkaline Phosphatase 53 (38-126) U/L Troponin I (0.000-0.034) ng/mL Total Protein 6.9 (6.3-8.2) g/dL Albumin 3.8 (3.5-5.0) g/dL 04/25/19 Range/Units 10:23 WBC (3.8-10.6) k/uL RBC (4.30-5.90) m/uL Hgb (13.0-17.5) gm/dL Hct (39.0-53.0) % MCV (80.0-100.0) fL MCH (25.0-35.0) pg MCHC (31.0-37.0) g/dL RDW (11.5-15.5) % Plt Count (150-450) k/uL Neutrophils % % Lymphocytes % % Monocytes % % Eosinophils % % Basophils % % Neutrophils # (1.3-7.7) k/uL Lymphocytes # (1.0-4.8) k/uL Monocytes # (0-1.0) k/uL Eosinophils # (0-0.7) k/uL Basophils # (0-0.2) k/uL PT (9.0-12.0) sec INR (<1.2) APTT (22.0-30.0) sec Sodium (137-145) mmol/L Potassium (3.5-5.1) mmol/L Chloride (98-107) mmol/L Carbon Dioxide (22-30) mmol/L Anion Gap mmol/L BUN (9-20) mg/dL Creatinine (0.66-1.25) mg/dL Est GFR (CKD-EPI)AfAm (>60 ml/min/1.73 sqM) Est GFR (CKD-EPI)NonAf (>60 ml/min/1.73 sqM) Glucose (74-99) mg/dL Calcium (8.4-10.2) mg/dL Total Bilirubin (0.2-1.3) mg/dL AST (17-59) U/L ALT (21-72) U/L Alkaline Phosphatase (38-126) U/L Troponin I <0.012 (0.000-0.034) ng/mL Total Protein (6.3-8.2) g/dL Albumin (3.5-5.0) g/dL Disposition Clinical Impression: COPD exacerbation, Shortness of breath Disposition: ADMITTED IP TO THIS [facility] Condition: Stable Is patient prescribed a controlled substance at d/c from ED?: No Referrals: Zackery Campos MD [Primary Care Provider] - 1-2 days Time of Disposition: 12:20 Decision to Admit Reason: Admit from EC Decision Date: 04/25/19 Decision Time: 12:20
--- NOTE | 2019-04-25 11:46 | XR ---
EXAMINATION TYPE: XR chest 2V DATE OF EXAM: 04/25/2019 COMPARISON: Prior chest x-ray 04/24/2019 HISTORY: Difficulty breathing TECHNIQUE: Frontal and lateral views of the chest are obtained. FINDINGS: Prominent lung volume may be indicative of underlying COPD. There is no focal air space op acity, pleural effusion, or pneumothorax seen. The cardiac silhouette size is within normal limits. The osseous structures are intact. There are overlying cardiac leads. IMPRESSION: No acute cardiopulmonary process.
[2019-04-25] MEDS ORDERED: AZITHROMYCIN 500 MG in SODIUM CHLORIDE 0.9% 250 ML IVPB STA (12:37)
[2019-04-25 13:28] VITALS: BMI 27.2
--- NOTE | 2019-04-25 13:38 | P.HPIM ---
History of Present Illness This is a pleasant 48 years old male with past medical history of COPD and alcohol abuse. He presents because of dyspnea and increasing cough with no phlegm. Patient denies chest pain. He states that he smokes about 1 pack per day, patient is counseled and agrees for the nicotine patch. He drinks alcohol occasionally and he denies illicit drugs Vitals are stable, he is saturating 94% on room air, left showing leukocytosis of 14.2 K, INR 0.9, BMP and liver enzymes are unremarkable. Chest x-ray: No acute cardiopulmonary process. On admission patient was started on his steroids and bronchodilator. Review of Systems CONSTITUTIONAL: No fever, no malaise, no fatigue. HEENT: No recent visual problems or hearing problems. Denied any sore throat. CARDIOVASCULAR: No orthopnea, PND, no palpitations, no syncope. PULMONARY: No shortness of breath, no cough, no hemoptysis. GASTROINTESTINAL: No diarrhea, no nausea, no vomiting, no abdominal pain. Normoactive bowel sounds. NEUROLOGICAL: No headaches, no weakness, no numbness. HEMATOLOGICAL: Denies any bleeding or petechiae. GENITOURINARY: Denies any burning micturition, frequency, or urgency. MUSCULOSKELETAL/RHEUMATOLOGICAL: Denies any joint pain, swelling, or any muscle pain. ENDOCRINE: Denies any polyuria or polydipsia. Past Medical History Past Medical History: COPD Additional Past Medical History / Comment(s): emphysema History of Any Multi-Drug Resistant Organisms: None Reported Past Surgical History: No Surgical Hx Reported Past Anesthesia/Blood Transfusion Reactions: No Reported Reaction Past Psychological History: No Psychological Hx Reported Smoking Status: Current every day smoker Past Alcohol Use History: Abuse Past Drug Use History: None Reported - Past Family History Father Family Medical History: Liver Disease Additional Family Medical History / Comment(s): Cirrhosis, ETOH abuse Mother Family Medical History: Cancer Additional Family Medical History / Comment(s): Mother of lung cancer at the age of 54yrs. She was a smoker. Medications and Allergies Home Medications Medication Instructions Recorded Confirmed Type Albuterol Sulfate [Proair Hfa] 2 puff INHALATION RT-Q4H PRN 04/02/18 04/25/19 History Ipratropium-Albuterol Nebulize 3 ml INHALATION RT-Q4H PRN #60 06/04/18 04/25/19 Rx [Duoneb 0.5 mg-3 mg/3 ml Soln] ampul.neb Budesonide-Formot 160-4.5 Mcg 2 puff INHALATION RT-BID #1 puff 10/27/18 04/25/19 Rx [Symbicort 160-4.5 Mcg Inhaler] methylPREDNISolone Dose Pack See Taper PO DIRECTED 04/25/19 04/25/19 History [Medrol Dose Pack] Allergies Allergy/AdvReac Type Severity Reaction Status Date / Time No Known Allergies Allergy Verified 04/25/19 10:11 Physical Exam Vitals: Vital Signs Temp Pulse Resp BP Pulse Ox 04/25/19 11:04 68 04/25/19 10:55 76 04/25/19 10:01 12 04/25/19 09:53 98.2 F 87 12 132/98 94 L 04/25/19 09:51 97.3 F L 89 20 154/92 94 L Intake and Output 04/24/19 04/25/19 04/25/19 22:59 06:59 14:59 Other: Weight 78.925 kg GENERAL: The patient is alert and oriented x3, not in any acute distress. Well developed, well nourished. HEENT: Pupils are round and equally reacting to light. EOMI. No scleral icterus. No conjunctival pallor. Normocephalic, atraumatic. No pharyngeal erythema. No thyromegaly. CARDIOVASCULAR: S1 and S2 present. No murmurs, rubs, or gallops. -PULMONARY: Chest is clear to auscultation, bilateral scattered wheezing ABDOMEN: Soft, nontender, nondistended, normoactive bowel sounds. No palpable organomegaly. MUSCULOSKELETAL: No joint swelling or deformity. EXTREMITIES: No cyanosis, clubbing, or pedal edema. NEUROLOGICAL: Gross neurological examination did not reveal any focal deficits. SKIN: No rashes. No petechiae Results CBC & Chem 7: 04/25/19 10:23 04/25/19 10:23 Labs: Abnormal Lab Results - Last 24 Hours (Table) 04/25/19 04/25/19 Range/Units 10:23 10:23 WBC 14.2 H (3.8-10.6) k/uL Neutrophils # 10.6 H (1.3-7.7) k/uL Monocytes # 1.1 H (0-1.0) k/uL Basophils # 0.4 H (0-0.2) k/uL Creatinine 0.61 L (0.66-1.25) mg/dL Glucose 102 H (74-99) mg/dL Assessment and Plan Assessment: Acute COPD exacerbation Current Nicotine dependence History of alcohol abuse Plan: This is a pleasant 48 years old male who presents with acute COPD exacerbation. Continue with steroids, bronchodilator and antibiotics. Patient is counseled about smoking and he agrees to quit, patient agrees to nicotine patch Follow-up vitals. Labs and medication were reviewed.. Continue same treatment. Continue with symptomatic treatment. Resume home medication. Monitor lytes and vitals. DVT and GI prophylaxis. Further recommendations of the clinical course of the patient DVT prophylaxis: Subcutaneous heparin GI Prophylaxis: Pepcid Prognosis is guarded
[2019-04-25] MEDS: NICOTINE 21MG/24HR PATCH TRANSDERM SCH (13:54)
[2019-04-25] MEDS: methylPREDNISolone SOD SUCCI 40 MG/ML 1 ML VIAL IV SCH (16:05)
[2019-04-25] MEDS: IPRATROPIUM-ALBUTEROL 3 ML NEB INHALATION PRN ×2 (16:08→19:27)
[2019-04-25] MEDS: SYMBICORT 160-4.5 MCG INHALER INHALATION SCH (19:27)
[2019-04-25] MEDS: FAMOTIDINE 20 MG/2 ML VIAL IV SCH (21:21)
[2019-04-25] MEDS: HEPARIN SODIUM,PORCINE 5,000 UNIT/ML 1 ML VIAL SQ SCH (21:22)
[2019-04-26] MEDS: methylPREDNISolone SOD SUCCI 40 MG/ML 1 ML VIAL IV SCH ×2 (01:15→08:29)
[2019-04-26 06:41] LABS: Glucose,Whole Blood 168 mg/dL (75-99)
[2019-04-26 06:56] LABS: Basophils % (A) 0 %; Eosinophils % (A) 0 %; HCT 43.4 % (39.0-53.0); HGB 14.8 gm/dL (13.0-17.5); Lymphocytes # (A) 0.8 k/uL (1.0-4.8); Lymphocytes % (A) 5 %; MCH 31.7 pg (25.0-35.0); MCHC 34.2 g/dL (31.0-37.0); MCV 92.6 fL (80.0-100.0); Mean Platelet Volume 7.1; Monocytes # (A) 0.4 k/uL (0-1.0); Monocytes % (A) 3 %; Neutrophils # (A) 14.7 k/uL (1.3-7.7); Neutrophils % (A) 92 %; Platelet Count 243 k/uL (150-450); RBC 4.69 m/uL (4.30-5.90); RDW 12.1 % (11.5-15.5); WBC 16.1 k/uL (3.8-10.6)
[2019-04-26] MEDS: SYMBICORT 160-4.5 MCG INHALER INHALATION SCH ×2 (07:41→19:28)
[2019-04-26] MEDS: IPRATROPIUM-ALBUTEROL 3 ML NEB INHALATION PRN ×2 (07:41→11:28)
[2019-04-26] MEDS: INSULIN ASPART (NovoLOG) 100 UNIT/ML VIAL SQ SCH ×4 (08:26→21:18)
[2019-04-26] MEDS: HEPARIN SODIUM,PORCINE 5,000 UNIT/ML 1 ML VIAL SQ SCH ×2 (08:29→21:18)
[2019-04-26] MEDS: FAMOTIDINE 20 MG/2 ML VIAL IV SCH (08:29)
[2019-04-26] MEDS: NICOTINE 21MG/24HR PATCH TRANSDERM SCH (08:29)
[2019-04-26 11:33] LABS: Glucose,Whole Blood 114 mg/dL (75-99)
[2019-04-26] MEDS ORDERED: methylPREDNISolone SOD SUCCI 40 MG/ML 1 ML VIAL IV SCH (12:00)
[2019-04-26] MEDS: AZITHROMYCIN 500 MG in SODIUM CHLORIDE 0.9% 250 ML IVPB SCH (12:08)
[2019-04-26] MEDS: methylPREDNISolone SOD SUCCI 125 MG/2 ML VIAL IV SCH ×3 (12:08→23:28)
--- NOTE | 2019-04-26 12:46 | P.PN ---
Subjective This is a pleasant 48 years old male with past medical history of COPD and alcohol abuse. He presents because of dyspnea and increasing cough with no phlegm. Patient denies chest pain. He states that he smokes about 1 pack per day, patient is counseled and agrees for the nicotine patch. He drinks alcohol occasionally and he denies illicit drugs Vitals are stable, he is saturating 94% on room air, left showing leukocytosis of 14.2 K, INR 0.9, BMP and liver enzymes are unremarkable. Chest x-ray: No acute cardiopulmonary process. On admission patient was started on his steroids and bronchodilator. 04/26/2019 Patient still feel wheezing and with exertional dyspnea. Patient is not ready to be discharged home. He is saturating 96% on room air, his vitals are stable. WBC is 16.1, rest of labs are unremarkable, sugar controlled. We'll increase his Medrol to 60 mg every 6 hours. Continue with Zithromax, breathing treatment and Symbicort Objective - Vital Signs Vital signs: Vital Signs Temp 97.8 F 04/26/19 12:00 Pulse 62 04/26/19 12:00 Resp 16 04/26/19 12:00 BP 118/71 04/26/19 12:00 Pulse Ox 96 04/26/19 12:00 Intake & Output 04/25/19 04/26/19 04/26/19 18:59 06:59 18:59 Intake Total 480 Balance 480 Weight 78.925 kg Intake: Oral 480 Other: Voiding Method Toilet Toilet Toilet # Voids 1 - Exam GENERAL: The patient is alert and oriented x3, not in any acute distress. Well developed, well nourished. HEENT: Pupils are round and equally reacting to light. EOMI. No scleral icterus. No conjunctival pallor. Normocephalic, atraumatic. No pharyngeal erythema. No thyromegaly. CARDIOVASCULAR: S1 and S2 present. No murmurs, rubs, or gallops. -PULMONARY: Chest is clear to auscultation, bilateral expiratory wheezing with prolonged expiration ABDOMEN: Soft, nontender, nondistended, normoactive bowel sounds. No palpable organomegaly. MUSCULOSKELETAL: No joint swelling or deformity. EXTREMITIES: No cyanosis, clubbing, or pedal edema. NEUROLOGICAL: Gross neurological examination did not reveal any focal deficits. SKIN: No rashes. no petechiae. - Labs CBC & Chem 7: 04/26/19 05:33 04/25/19 10:23 Labs: Abnormal Lab Results - Last 24 Hours (Table) 04/26/19 04/26/19 04/26/19 Range/Units 05:33 06:39 11:32 WBC 16.1 H (3.8-10.6) k/uL Neutrophils # 14.7 H (1.3-7.7) k/uL Lymphocytes # 0.8 L (1.0-4.8) k/uL POC Glucose (mg/dL) 168 H 114 H (75-99) mg/dL Assessment and Plan Assessment: Acute COPD exacerbation Current Nicotine dependence History of alcohol abuse Plan: This is a pleasant 48 years old male who presents with acute COPD exacerbation. Continue with steroids, bronchodilator and antibiotics. Patient is counseled about smoking and he agrees to quit, patient agrees to nicotine patch Follow-up vitals. Labs and medication were reviewed.. Continue same treatment. Continue with symptomatic treatment. Resume home medication. Monitor lytes and vitals. DVT and GI prophylaxis. Further recommendations of the clinical course of the patient DVT prophylaxis: Subcutaneous heparin GI Prophylaxis: Pepcid Prognosis is guarded
[2019-04-26 16:38] LABS: Glucose,Whole Blood 182 mg/dL (75-99)
[2019-04-26 19:19] VITALS: RESP 18
[2019-04-26 20:19] LABS: Glucose,Whole Blood 164 mg/dL (75-99)
[2019-04-26] MEDS: FAMOTIDINE 20 MG TAB PO SCH (21:17)
[2019-04-27 05:35] LABS: Basophils # (A) 0.2 k/uL (0-0.2); Basophils % (A) 1 %; Eosinophils % (A) 0 %; HCT 44.4 % (39.0-53.0); HGB 14.8 gm/dL (13.0-17.5); Lymphocytes # (A) 0.7 k/uL (1.0-4.8); Lymphocytes % (A) 3 %; MCH 31.4 pg (25.0-35.0); MCHC 33.3 g/dL (31.0-37.0); MCV 94.2 fL (80.0-100.0); Mean Platelet Volume 8.1; Monocytes # (A) 0.8 k/uL (0-1.0); Monocytes % (A) 4 %; Neutrophils # (A) 19.1 k/uL (1.3-7.7); Neutrophils % (A) 91 %; Platelet Count 243 k/uL (150-450); RBC 4.72 m/uL (4.30-5.90); RDW 12.4 % (11.5-15.5); WBC 20.9 k/uL (3.8-10.6)
[2019-04-27] MEDS: methylPREDNISolone SOD SUCCI 125 MG/2 ML VIAL IV SCH ×2 (06:17→11:15)
[2019-04-27 06:57] LABS: Glucose,Whole Blood 118 mg/dL (75-99)
[2019-04-27] MEDS: IPRATROPIUM-ALBUTEROL 3 ML NEB INHALATION PRN ×2 (07:27→11:14)
[2019-04-27] MEDS: SYMBICORT 160-4.5 MCG INHALER INHALATION SCH (07:27)
[2019-04-27] MEDS: INSULIN ASPART (NovoLOG) 100 UNIT/ML VIAL SQ SCH ×2 (07:47→11:37)
[2019-04-27] MEDS: HEPARIN SODIUM,PORCINE 5,000 UNIT/ML 1 ML VIAL SQ SCH (08:16)
[2019-04-27] MEDS: FAMOTIDINE 20 MG TAB PO SCH (08:16)
[2019-04-27] MEDS: NICOTINE 21MG/24HR PATCH TRANSDERM SCH (08:17)
[2019-04-27] MEDS: AZITHROMYCIN 500 MG in SODIUM CHLORIDE 0.9% 250 ML IVPB SCH (11:15)
[2019-04-27 11:32] LABS: Glucose,Whole Blood 120 mg/dL (75-99)
[2019-04-27] MEDS ORDERED: predniSONE 20 MG TAB PO STA (11:54)
[2019-04-27] MEDS ORDERED: ALBUTEROL NEBULIZED 2.5 MG/3 ML INHALATION PRN (12:02)
[2019-04-27 12:08] VITALS: BP 132/80; PULSE 50; TEMP 97.8
--- NOTE | 2019-04-27 12:14 | P.DS ---
Providers Date of admission: 04/25/19 12:10 Attending physician: Kendall Quiroz MD Primary care physician: Andres Vizcarra [facility] Course: Diagnoses: Acute COPD exacerbation, significantly improved upon discharge Current Nicotine dependence, patient agrees to quit after counseling Leukocytosis, mostly reactive secondary to straight effect. History of alcohol abuse Hospital course: This is a pleasant 48 years old male with past medical history of COPD and cig arette smoking and alcohol abuse. He presents because of dyspnea and increasing cough with no phlegm. Patient denies chest pain. He states that he smokes about 1 pack per day, patient is counseled and agrees for the nicotine patch. He drinks alcohol occasionally and he denies illicit drugs. Patient was admitted to the observation unit, he was treated with Solu-Medrol, bronchodilator and antibiotics. Patient showed interval improvement on the day of discharge his dyspnea significantly improved, his expiratory wheezing is significantly improved and almost disappeared on his chest examination, his cough is back to baseline, patient couldn't walk in the hallway with no difficulty. Patient feels that his back to baseline and he denies chest pain, no significant dyspnea, no change in urine or bowel habits, no fever, patient oxygen remains 98% on room air throughout his hospital stay. Problems and management plan were discussed with the patient and he verbalized understanding and acceptance Patient was found stable and can be discharged home however he needs follow-up as an outpatient. Patient was instructed to follow up with PCP within one week and patient agrees. Patient agrees with the appointments made with his PCP Dr. Caba and a its timing and states he will follow-up. Patient also counseled to follow up with his WBC count with his PCP and he agrees. Patient states that he has no medical insurance and his medical insurance was taken effect on 05/06/2019, Patient was informed about [facility] (good Rx) in which I ran each medication with the patient and he agrees with the co-pay for each one. Patient says that he will get this And prescription with the help of his sister will take him home. Patient will be discharged on antibiotics, tapered steroids, albuterol, nicotine patch and Pepcid Gen: patient is a AAOx3, no distress CVS: S1-S2, RRR, no murmur Lungs: B/L CTA, no wheezing Abdomen: soft, no distention, no tenderness, positive bowel sounds Extremity: no leg edema or induration Time spent more than 35 minutes Patient Condition at Discharge: Stable Plan - Discharge Summary Discharge Rx Participant: No New Discharge Prescriptions: New Famotidine [Pepcid] 20 mg PO Q12HR #40 tab predniSONE 0 mg PO DIRECTED #30 tab Azithromycin [Zithromax] 500 mg PO DAILY@1200 #3 tab Nicotine 21Mg/24Hr Patch [Habitrol] 1 patch TRANSDERM DAILY #30 patch Continue methylPREDNISolone Dose Pack [Medrol Dose Pack] See Taper PO DIRECTED Albuterol Sulfate [Proair Hfa] 2 puff INHALATION RT-Q4H PRN #1 inhaler PRN Reason: difficulty in breathing No Action Ipratropium-Albuterol Nebulize [Duoneb 0.5 mg-3 mg/3 ml Soln] 3 ml INHALATION RT-Q4H PRN #60 ampul.neb PRN Reason: Shortness Of Breath Or Wheezing Budesonide-Formot 160-4.5 Mcg [Symbicort 160-4.5 Mcg Inhaler] 2 puff INHALATI ON RT-BID #1 puff Discharge Medication List Ipratropium-Albuterol Nebulize [Duoneb 0.5 mg-3 mg/3 ml Soln] 3 ml INHALATION RT-Q4H PRN #60 ampul.neb 06/04/18 [Rx] Budesonide-Formot 160-4.5 Mcg [Symbicort 160-4.5 Mcg Inhaler] 2 puff INHALATION RT-BID #1 puff 10/27/18 [Rx] methylPREDNISolone Dose Pack [Medrol Dose Pack] See Taper PO DIRECTED 04/25/19 [History] Albuterol Sulfate [Proair Hfa] 2 puff INHALATION RT-Q4H PRN #1 inhaler 04/27/19 [Rx] Azithromycin [Zithromax] 500 mg PO DAILY@1200 #3 tab 04/27/19 [Rx] Famotidine [Pepcid] 20 mg PO Q12HR #40 tab 04/27/19 [Rx] Nicotine 21Mg/24Hr Patch [Habitrol] 1 patch TRANSDERM DAILY #30 patch 04/27/19 [Rx] predniSONE 0 mg PO DIRECTED #30 tab 04/27/19 [Rx] Follow up Appointment(s)/Referral(s): Myrtle Miguel MD [STAFF PHYSICIAN] - 1 Week Zackery Campos MD [Primary Care Provider] - 05/01/19 2:10 pm
[2019-04-28] MEDS ORDERED: AZITHROMYCIN 500 MG TAB PO SCH (12:00)
== END 2019-04-27 12:56 | disposition home or self-care (01) ==
LOC: EC 09:49 → 1SOBS 12:10
PROVIDERS: ADMIT Internal Medicine; ATTEND Internal Medicine
DX: J43.9 Emphysema, unspecified (principal); R09.02 Hypoxemia; D72.829 Elevated white blood cell count, unspecified; F10.10 Alcohol abuse, uncomplicated; F17.210 Nicotine dependence, cigarettes, uncomplicated; Z79.51 Long term (current) use of inhaled steroids; Z80.1 Family history of malignant neoplasm of trachea, bronchus and lung; Z81.1 Family history of alcohol abuse and dependence; Z83.79 Family history of other diseases of the digestive system; Z79.899 Other long term (current) drug therapy
CPT/HCPCS: 96366 ×3; 96372 ×3; 96375 ×2; 96376 ×2; 96365; 99285; 36415; 94640 ×6; 93005; 80053; 84484; 85025 ×3; 85610; 85730; 71046; G0378 ×3; S4990 ×3; J1644 ×3; J2920 ×2; J2930 ×3; J0456 ×3; J7512

== ENCOUNTER 2019-07-16 13:04 | Emergency (ER) | payer OTHER ==
[2019-07-16 13:13] VITALS: RESP 18
[2019-07-16] MEDS ORDERED: methylPREDNISolone SOD SUCCI 125 MG/2 ML VIAL IM ONE (14:24)
[2019-07-16] MEDS ORDERED: IPRATROPIUM-ALBUTEROL 3 ML NEB INHALATION STA (14:24)
--- NOTE | 2019-07-16 14:30 | ED ---
General Adult HPI - General Chief complaint: Shortness of Breath Stated complaint: DANY,COPD Time Seen by Provider: 07/16/19 14:09 Source: patient, RN notes reviewed Mode of arrival: ambulatory Limitations: no limitations - History of Present Illness Initial comments: 48-year-old male with a past medical history of COPD, emphysema presents to the emergency department for a chief complaint of shortness of breath. Patient states he is here from [place] and is supposed to be going home today. However he states he did not bring his nebulizer or inhaler with him. States he usually uses his multiple times a day but has not used it in the past 3 days because he has not had it with him. States he is about to be going home and is here for a breathing treatment before he does so. He denies chest pain or pressure. States his shortness of breath feels like when he doesn't use his medications properly. Denies fevers. Denies increased cough.Patient has no other complaints at this time including shortness of breath, chest pain, abdominal pain, nausea or vomiting, headache, or visual changes. - Related Data Home Medications Medication Instructions Recorded Confirmed methylPREDNISolone Dose Pack See Taper PO DIRECTED 04/25/19 04/25/19 [Medrol Dose Pack] Previous Rx's Medication Instructions Recorded Ipratropium-Albuterol Nebulize 3 ml INHALATION RT-Q4H PRN #60 06/04/18 [Duoneb 0.5 mg-3 mg/3 ml Soln] ampul.neb Budesonide-Formot 160-4.5 Mcg 2 puff INHALATION RT-BID #1 puff 10/27/18 [Symbicort 160-4.5 Mcg Inhaler] Albuterol Sulfate [Proair Hfa] 2 puff INHALATION RT-Q4H PRN #1 04/27/19 inhaler Azithromycin [Zithromax] 500 mg PO DAILY@1200 #3 tab 04/27/19 Famotidine [Pepcid] 20 mg PO Q12HR #40 tab 04/27/19 Nicotine 21Mg/24Hr Patch [Habitrol] 1 patch TRANSDERM DAILY #30 patch 04/27/19 predniSONE 0 mg PO DIRECTED #30 tab 04/27/19 Azithromycin [Zithromax Z-pack] 250 mg PO DIRECTED #6 tab 07/16/19 predniSONE 50 mg PO DAILY #5 tablet 07/16/19 Allergies Allergy/AdvReac Type Severity Reaction Status Date / Time No Known Allergies Allergy Verified 07/16/19 13:13 Review of Systems ROS Statement: Those systems with pertinent positive or pertinent negative responses have been documented in the HPI. ROS Other: All systems not noted in ROS Statement are negative. Past Medical History Past Medical History: COPD Additional Past Medical History / Comment(s): emphysema History of Any Multi-Drug Resistant Organisms: None Reported Past Surgical History: No Surgical Hx Reported Past Anesthesia/Blood Transfusion Reactions: No Reported Reaction Additional Past Anesthesia/Blood Transfusion Reaction / Comment(s): Pt has never had surgery Past Psychological History: No Psychological Hx Reported Smoking Status: Current every day smoker Past Alcohol Use History: Abuse Past Drug Use History: None Reported - Past Family History Father Family Medical History: Liver Disease Additional Family Medical History / Comment(s): Cirrhosis, ETOH abuse Mother Family Medical History: Cancer Additional Family Medical History / Comment(s): Mother of lung cancer at the age of 54yrs. She was a smoker. General Exam Limitations: no limitations General appearance: alert, in no apparent distress Head exam: Present: atraumatic, normocephalic, normal inspection Eye exam: Present: normal appearance, PERRL, EOMI. Absent: scleral icterus, conjunctival injection, periorbital swelling ENT exam: Present: normal exam, mucous membranes moist Neck exam: Present: normal inspection, full ROM. Absent: tenderness, meningismus, lymphadenopathy Respiratory exam: Present: wheezes (mild wheezing noted in lower lung murry). Absent: respiratory distress, rales, rhonchi, stridor Cardiovascular Exam: Present: regular rate, normal rhythm, normal heart sounds. Absent: systolic murmur, diastolic murmur, rubs, gallop, clicks Neurological exam: Present: alert Course Vital Signs 07/16/19 07/16/19 07/16/19 13:11 14:35 14:45 Temperature 97.9 F Pulse Rate 86 84 87 Respiratory 18 Rate Blood Pressure 132/88 O2 Sat by Pulse 95 Oximetry Medical Decision Making - Medical Decision Making Vitals are stable. Patient 95% on room air. States this is exactly like previous COPD exacerbations. Patient refuses chest x-ray stating he knows he does not have pneumonia or increased cough. States he is only here for a breathing treatment and steroids since he has not had his nebulizer with him for 3 days. Patient was given DuoNeb and steroids and feels much better. He will follow up with primary care in 1-2 days. He'll return if he has any worsening symptoms. as patient refused an x-ray will cover him with a Z-Junaid as well as a steroid outpatient. Disposition Clinical Impression: COPD exacerbation Disposition: HOME SELF-CARE Condition: Good Instructions (If sedation given, give patient instructions): COPD (Chronic Obstructive Pulmonary Disease) (ED) Additional Instructions: please take steroid and antibiotic as directed. Please follow-up with primary care in 1-2 days. Please return to the emergency department if you have any worsening symptoms. Prescriptions: predniSONE 50 mg PO DAILY #5 tablet Azithromycin [Zithromax Z-pack] 250 mg PO DIRECTED #6 tab Is patient prescribed a controlled substance at d/c from ED?: No Referrals: Zackery Campos MD [Primary Care Provider] - 1-2 days Time of Disposition: 15:03
[2019-07-16 15:20] VITALS: BP 129/81; PULSE 82; TEMP 97.8
== END 2019-07-16 15:20 | disposition home or self-care (01) ==
LOC: EC 13:04
DX: J44.1 Chronic obstructive pulmonary disease with (acute) exacerbation (principal); F17.200 Nicotine dependence, unspecified, uncomplicated
CPT/HCPCS: 94640; 99284; 96372; J2930

== ENCOUNTER 2019-07-17 09:18 | Inpatient (IN) | payer OTHER ==
[2019-07-17] MEDS ORDERED: methylPREDNISolone SOD SUCCI 125 MG/2 ML VIAL IV STA (09:35)
[2019-07-17] MEDS ORDERED: SODIUM CHLORIDE 0.9% 1,000 ML IV STA (09:35)
[2019-07-17] MEDS ORDERED: IPRATROPIUM-ALBUTEROL 3 ML NEB INHALATION STA ×3 (09:35→11:38)
--- NOTE | 2019-07-17 09:40 | ED ---
SOB HPI - General Chief Complaint: Shortness of Breath Stated Complaint: SOB/COPD Time Seen by Provider: 07/17/19 09:20 Source: patient, RN notes reviewed, old records reviewed Mode of arrival: ambulatory Limitations: no limitations - History of Present Illness Initial Comments: This is a 48-year-old male with a history of COPD who is present pain with complaints of several days of shortness of breath exertional dyspnea and a relatively dry cough. He denies any fevers chills or sweats. He denies any chest pain. He was seen here yesterday given steroids and updrafts with some improvement but then he states he get worse this morning. He does state that he did not bring enough of his inhaler medication. He is from [place] he states. He is a smoker. He denies any other problems or issues at this time. MD Complaint: shortness of breath, cough - Related Data Previous Rx's Medication Instructions Recorded Ipratropium-Albuterol Nebulize 3 ml INHALATION RT-Q4H PRN #60 06/04/18 [Duoneb 0.5 mg-3 mg/3 ml Soln] ampul.neb Albuterol Sulfate [Proair Hfa] 2 puff INHALATION RT-Q4H PRN #1 04/27/19 inhaler Allergies Allergy/AdvReac Type Severity Reaction Status Date / Time No Known Allergies Allergy Verified 07/17/19 10:49 Review of Systems ROS Statement: Those systems with pertinent positive or pertinent negative responses have been documented in the HPI. ROS Other: All systems not noted in ROS Statement are negative. Past Medical History Past Medical History: COPD Additional Past Medical History / Comment(s): emphysema History of Any Multi-Drug Resistant Organisms: None Reported Past Surgical History: No Surgical Hx Reported Past Anesthesia/Blood Transfusion Reactions: No Reported Reaction Additional Past Anesthesia/Blood Transfusion Reaction / Comment(s): Pt has never had surgery Past Psychological History: No Psychological Hx Reported Smoking Status: Current every day smoker Past Alcohol Use History: Occasional Past Drug Use History: None Reported - Past Family History Father Family Medical History: Liver Disease Additional Family Medical History / Comment(s): Cirrhosis, ETOH abuse Mother Family Medical History: Cancer Additional Family Medical History / Comment(s): Mother of lung cancer at the age of 54yrs. She was a smoker. General Exam - General Exam Comments Initial Comments: this is a well-developed well-nourished awake alert oriented 3 male Limitations: no limitations General appearance: alert, in distress Head exam: Present: atraumatic, normocephalic, normal inspection Eye exam: Present: normal appearance, PERRL, EOMI. Absent: scleral icterus, conjunctival injection, periorbital swelling ENT exam: Present: mucous membranes dry Neck exam: Present: normal inspection, full ROM, other (no stridor JVD or bruits). Absent: tenderness, meningismus, lymphadenopathy Respiratory exam: Present: wheezes, accessory muscle use, decreased breath sounds. Absent: respiratory distress, rales, rhonchi, stridor Cardiovascular Exam: Present: regular rate, normal rhythm, normal heart sounds. Absent: systolic murmur, diastolic murmur, rubs, gallop, clicks GI/Abdominal exam: Present: soft, normal bowel sounds. Absent: distended, tende rness, guarding, rebound, rigid Extremities exam: Present: normal inspection, full ROM, normal capillary refill. Absent: tenderness, pedal edema, joint swelling, calf tenderness Back exam: Present: normal inspection Neurological exam: Present: alert, oriented X3, CN II-XII intact Psychiatric exam: Present: normal affect, normal mood Skin exam: Present: warm, dry, intact, normal color. Absent: rash Course Vital Signs 07/17/19 07/17/19 07/17/19 09:20 09:45 09:53 Temperature 97.4 F L Pulse Rate 69 80 71 Respiratory 22 Rate Blood Pressure 148/91 O2 Sat by Pulse 95 Oximetry 07/17/19 07/17/19 11:11 11:20 Temperature Pulse Rate 74 79 Respiratory Rate Blood Pressure O2 Sat by Pulse Oximetry - Reevaluation(s) Reevaluation #1: 07/17/19 11:57 Reevaluation patient reveals minimal improvement due to the presentation and the repeat visit and sharp. Time patient be admitted for inpatient treatment. Medical Decision Making - Lab Data Result diagrams: 07/17/19 09:37 07/17/19 09:37 Lab Results 07/17/19 07/17/19 07/17/19 Range/Units 09:37 09:37 09:37 WBC 13.5 H (3.8-10.6) k/uL RBC 4.60 (4.30-5.90) m/uL Hgb 14.8 (13.0-17.5) gm/dL Hct 43.6 (39.0-53.0) % MCV 94.7 (80.0-100.0) fL MCH 32.2 (25.0-35.0) pg MCHC 34.0 (31.0-37.0) g/dL RDW 12.8 (11.5-15.5) % Plt Count 318 (150-450) k/uL Neutrophils % 71 % Lymphocytes % 14 % Monocytes % 12 % Eosinophils % 0 % Basophils % 2 % Neutrophils # 9.6 H (1.3-7.7) k/uL Lymphocytes # 1.9 (1.0-4.8) k/uL Monocytes # 1.6 H (0-1.0) k/uL Eosinophils # 0.0 (0-0.7) k/uL Basophils # 0.2 (0-0.2) k/uL PT 10.2 (9.0-12.0) sec INR 0.9 (<1.2) APTT 23.5 (22.0-30.0) sec D-Dimer <0.17 (<0.60) mg/L FEU Sodium 140 (137-145) mmol/L Potassium 4.1 (3.5-5.1) mmol/L Chloride 108 H (98-107) mmol/L Carbon Dioxide 24 (22-30) mmol/L Anion Gap 8 mmol/L BUN 14 (9-20) mg/dL Creatinine 0.68 (0.66-1.25) mg/dL Est GFR (CKD-EPI)AfAm >90 (>60 ml/min/1.73 sqM) Est GFR (CKD-EPI)NonAf >90 (>60 ml/min/1.73 sqM) Glucose 92 (74-99) mg/dL Calcium 9.3 (8.4-10.2) mg/dL Magnesium 2.1 (1.6-2.3) mg/dL Total Bilirubin 0.7 (0.2-1.3) mg/dL AST 47 (17-59) U/L ALT 69 H (4-49) U/L Alkaline Phosphatase 63 (38-126) U/L Creatine Kinase 145 (55-170) U/L Troponin I (0.000-0.034) ng/mL NT-Pro-B Natriuret Pep pg/mL Total Protein 8.2 (6.3-8.2) g/dL Albumin 4.7 (3.5-5.0) g/dL 07/17/19 07/17/19 Range/Units 09:37 09:37 WBC (3.8-10.6) k/uL RBC (4.30-5.90) m/uL Hgb (13.0-17.5) gm/dL Hct (39.0-53.0) % MCV (80.0-100.0) fL MCH (25.0-35.0) pg MCHC (31.0-37.0) g/dL RDW (11.5-15.5) % Plt Count (150-450) k/uL Neutrophils % % Lymphocytes % % Monocytes % % Eosinophils % % Basophils % % Neutrophils # (1.3-7.7) k/uL Lymphocytes # (1.0-4.8) k/uL Monocytes # (0-1.0) k/uL Eosinophils # (0-0.7) k/uL Basophils # (0-0.2) k/uL PT (9.0-12.0) sec INR (<1.2) APTT (22.0-30.0) sec D-Dimer (<0.60) mg/L FEU Sodium (137-145) mmol/L Potassium (3.5-5.1) mmol/L Chloride (98-107) mmol/L Carbon Dioxide (22-30) mmol/L Anion Gap mmol/L BUN (9-20) mg/dL Creatinine (0.66-1.25) mg/dL Est GFR (CKD-EPI)AfAm (>60 ml/min/1.73 sqM) Est GFR (CKD-EPI)NonAf (>60 ml/min/1.73 sqM) Glucose (74-99) mg/dL Calcium (8.4-10.2) mg/dL Magnesium (1.6-2.3) mg/dL Total Bilirubin (0.2-1.3) mg/dL AST (17-59) U/L ALT (4-49) U/L Alkaline Phosphatase (38-126) U/L Creatine Kinase (55-170) U/L Troponin I <0.012 (0.000-0.034) ng/mL NT-Pro-B Natriuret Pep 147 pg/mL Total Protein (6.3-8.2) g/dL Albumin (3.5-5.0) g/dL - EKG Data -: EKG Interpreted by Me EKG shows normal: sinus rhythm EKG Comments: normal sinus rhythm a 77 134 QRS duration 94 QT since QTC 382/[address]-T wave changes - Radiology Data Radiology results: report reviewed (I did review the imaging and report no acute findings or appears consistent with COPD), image reviewed Critical Care Time Critical Care Time: Yes Critical Care Time: 37 minutes of critical care time which includes initial presentation with history physical labs x-rays multiple reevaluation the patient response to therapy review of old charting discussion with the admitting physician Dr. Mcfarland. Documentation above and admission orders Disposition Clinical Impression: Acute respiratory distress syndrome in adult, Acute exacerbation of chronic obstructive airways disease, Failure of outpatient treatment Disposition: ADMITTED IP TO THIS HOSP Condition: Fair Referrals: Zackery Campos MD [Primary Care Provider] - 1-2 days
[2019-07-17 10:12] LABS: ALT 69 U/L (4-49); AST 47 U/L (17-59); African American GFR (CKD) >90 (>60 ml/min/1.73 sqM); Albumin 4.7 g/dL (3.5-5.0); Alkaline Phosphatase 63 U/L (38-126); Anion Gap 8 mmol/L; Blood Urea Nitrogen 14 mg/dL (9-20); Calcium 9.3 mg/dL (8.4-10.2); Carbon Dioxide 24 mmol/L (22-30); Chloride 108 mmol/L (98-107); Creatine Kinase 145 U/L (55-170); Glucose 92 mg/dL (74-99); Magnesium 2.1 mg/dL (1.6-2.3); Non-African American GFR(CKD) >90 (>60 ml/min/1.73 sqM); Potassium 4.1 mmol/L (3.5-5.1); Sodium 140 mmol/L (137-145); Total Bilirubin 0.7 mg/dL (0.2-1.3); Total Protein 8.2 g/dL (6.3-8.2)
[2019-07-17 10:15] LABS: Basophils # (A) 0.2 k/uL (0-0.2); Basophils % (A) 2 %; Eosinophils % (A) 0 %; HCT 43.6 % (39.0-53.0); HGB 14.8 gm/dL (13.0-17.5); Lymphocytes # (A) 1.9 k/uL (1.0-4.8); Lymphocytes % (A) 14 %; MCH 32.2 pg (25.0-35.0); MCV 94.7 fL (80.0-100.0); Mean Platelet Volume 8.2; Monocytes # (A) 1.6 k/uL (0-1.0); Monocytes % (A) 12 %; Neutrophils # (A) 9.6 k/uL (1.3-7.7); Neutrophils % (A) 71 %; Platelet Count 318 k/uL (150-450); RDW 12.8 % (11.5-15.5); WBC 13.5 k/uL (3.8-10.6)
[2019-07-17 10:18] LABS: INR 0.9 (<1.2); Partial Thromboplastin Time 23.5 sec (22.0-30.0); Prothrombin Time 10.2 sec (9.0-12.0)
--- NOTE | 2019-07-17 10:18 | XR ---
EXAMINATION TYPE: XR chest 2V DATE OF EXAM: 07/17/2019 COMPARISON: Chest x-ray April 25, 2019. HISTORY: COPD with shortness of breath. TECHNIQUE: Frontal and lateral views of the chest are obtained. FINDINGS: There is background Chronic emphysematous change without suspicious new focal air space op acity, pleural effusion, or pneumothorax seen. The cardiac silhouette size remains within normal martinez its. The osseous structures are intact. IMPRESSION: Chronic emphysematous change without acute pulmonary process.
[2019-07-17 10:21] LABS: D-Dimer <0.17 mg/L FEU (<0.60)
[2019-07-17] MEDS: SODIUM CHLORIDE 0.9% 1,000 ML IV SCH (12:53)
[2019-07-17] MEDS: IPRATROPIUM-ALBUTEROL 3 ML NEB INHALATION SCH ×3 (12:54→23:59)
[2019-07-17] MEDS: methylPREDNISolone SOD SUCCI 125 MG/2 ML VIAL IV SCH ×2 (13:00→17:59)
[2019-07-17] MEDS ORDERED: INFLUENZA VACCINE (6 MOS+) 60 MCG/0.5 ML SYRINGE IM ONE (15:19)
[2019-07-17] MEDS ORDERED: IPRATROPIUM-ALBUTEROL 3 ML NEB INHALATION PRN (16:49)
[2019-07-17] MEDS ORDERED: RX INFO: IV CONTRAST WAS GIVEN 1 EACH MISC MISCELLANE PRN (17:01)
--- NOTE | 2019-07-17 17:03 | P.CNPUL ---
History of Present Illness Consult date: 07/17/19 Requesting physician: Nikole Mcfarland Reason for consult: dyspnea, cough, COPD Chief complaint: Dyspnea, cough, chest congestion History of present illness: This is a 48-year-old white male, at least a [id number] smoker, known history of COPD, presented the hospital for evaluation and worsening shortness of breath, nonproductive cough, wheezing, chest tightness. Patient used to follow with Dr. Campos, and had recently moved to [place], and [facility] his [facility]. He still actively smoking, one pack a day, he does have albuterol rescue inhaler and DuoNeb nebulized treatments at home, which he did not bring with him on a trip. Not oxygen dependent at baseline, patient is employed in construction, doing belkys. we had last saw the patient in consultation last year in May 2018 for COPD exacerbation however patient did not follow-up in the outpatient basis, during his last admission CTA chest was done showing extensive bilateral reticulonodular pulmonary infiltrates, and a few bronchial and paratracheal lymph nodes measuring up to 1 cm. on admission chest x-ray showed chronic emphysematous changes without acute pulmonary process. labs have been reviewed showing white blood cell count of 13.5, hemoglobin of 14.8, d-dimer was negative at 0.17, coagulation profile was within normal limits, his electrolytes and renal profile were unremarkable, troponin w as negative 1, proBNP was 147, AST was 47, ALT was 69, alkaline phosphatase was 63.patient has been afebrile, clinically stable, he is on room air, and some wheezing and coughing, and we are seeing the patient in consultation for acute exacerbation of COPD Review of Systems All systems: negative Constitutional: Denies chills, Denies fever Eyes: denies blurred vision, denies pain Ears, nose, mouth and throat: Denies headache, Denies sore throat Cardiovascular: Denies chest pain, Denies shortness of breath Respiratory: Reports congestion, Reports cough, Reports dyspnea Gastrointestinal: Denies abdominal pain, Denies diarrhea, Denies nausea, Denies vomiting Musculoskeletal: Denies myalgias Integumentary: Denies pruritus, Denies rash Neurological: Denies numbness, Denies weakness Psychiatric: Denies anxiety, Denies depression Endocrine: Denies fatigue, Denies weight change Past Medical History Past Medical History: COPD, Osteoarthritis (OA), Pneumonia Additional Past Medical History / Comment(s): Tracheobronchitis, pneumonia with sepsis, ETOH abuse with withdrawals in past (tremors/nausea), head injury with concusion years ago, arthritis in hands, nonsustained VT. History of Any Multi-Drug Resistant Organisms: None Reported Past Surgical History: No Surgical Hx Reported Past Anesthesia/Blood Transfusion Reactions: Unable to Obtain Additional Past Anesthesia/Blood Transfusion Reaction / Comment(s): Pt has never had surgery Smoking Status: Current every day smoker - Past Family History Father Family Medical History: Liver Disease Additional Family Medical History / Comment(s): Cirrhosis, ETOH abuse Mother Family Medical History: Cancer Additional Family Medical History / Comment(s): Mother of lung cancer at the age of 54yrs. She was a smoker. Medications and Allergies Home Medications Medication Instructions Recorded Confirmed Type Ipratropium-Albuterol Nebulize 3 ml INHALATION RT-Q4H PRN #60 06/04/18 07/17/19 Rx [Duoneb 0.5 mg-3 mg/3 ml Soln] ampul.neb Albuterol Sulfate [Proair Hfa] 2 puff INHALATION RT-Q4H PRN #1 04/27/19 07/17/19 Rx inhaler Allergies Allergy/AdvReac Type Severity Reaction Status Date / Time No Known Allergies Allergy Verified 07/17/19 10:49 Physical Exam Vitals: Vital Signs Temp Pulse Resp BP Pulse Ox 07/17/19 16:00 79 20 117/72 95 07/17/19 15:30 73 22 127/78 95 07/17/19 15:00 86 22 124/77 07/17/19 14:30 81 20 122/80 07/17/19 14:00 73 19 110/76 07/17/19 13:30 86 21 117/66 94 L 07/17/19 13:00 77 21 120/73 92 L 07/17/19 12:30 92 20 128/67 90 L 07/17/19 12:06 71 07/17/19 12:00 66 21 120/77 97 07/17/19 11:57 76 07/17/19 11:30 72 21 125/91 91 L 07/17/19 11:20 79 07/17/19 11:11 74 07/17/19 11:00 70 20 135/115 95 07/17/19 10:30 72 19 115/79 97 07/17/19 10:00 72 18 152/101 97 07/17/19 09:53 71 07/17/19 09:45 80 07/17/19 09:20 97.4 F L 69 22 148/91 95 Intake and Output 07/17/19 07/17/19 07/17/19 06:59 14:59 22:59 Other: Weight 81.647 kg 81.647 kg GENERAL EXAM: Alert, Ray pleasant, 48-year-old white on room air, with a pulse ox of 95%, comfortable in no apparent distress. Slight voice hoarseness HEAD: Normocephalic/atraumatic. EYES: Normal reaction of pupils, equal size. Conjunctiva pink, sclera white. NOSE: Clear with pink turbinates. THROAT: No erythema or exudates. NECK: No masses, no JVD, no thyroid enlargement, no adenopathy. CHEST: No chest wall deformity. Symmetrical expansion. LUNGS: Equal air entry with scattered rhonchi and wheezing CVS: Regular rate and rhythm, normal S1 and S2, no gallops, no murmurs, no rubs ABDOMEN: Soft, nontender. No hepatosplenomegaly, normal bowel sounds, no guarding or rigidity. EXTREMITIES: No clubbing, no edema, no cyanosis, 2+ pulses and upper and lower extremities. MUSCULOSKELETAL: Muscle strength and tone normal. SPINE: No scoliosis or deformity SKIN: No rashes CENTRAL NERVOUS SYSTEM: Alert and oriented -3. No focal deficits, tone is normal in all 4 extremities. PSYCHIATRIC: Alert and oriented -3. Appropriate affect. Intact judgment and insight. Results - Laboratory Findings CBC and BMP: 07/17/19 09:37 07/17/19 09:37 PT/INR, D-dimer PT 10.2 sec (9.0-12.0) 07/17/19 09:37 INR 0.9 (<1.2) 07/17/19 09:37 D-Dimer <0.17 mg/L FEU (<0.60) 07/17/19 09:37 Abnormal lab findings: Abnormal Labs 07/17/19 07/17/19 09:37 09:37 WBC 13.5 H Neutrophils # 9.6 H Monocytes # 1.6 H Chloride 108 H ALT 69 H - Diagnostic Findings Chest x-ray: report reviewed, image reviewed Assessment and Plan Plan: assessment: #1. Acute exacerbation of chronic obstructive pulmonary disease complicated by tracheobronchitis,chest x-ray has been reviewed showing no acute pulmonary process #2. Chronic and ongoing history of nicotine abuse, currently smokes one pack a day #3. History of COPD, currently not oxygen dependent #4. Generalized anxiety disorder #5. Mild voice hoarseness Plan: Continue current medical treatment, continue nebulized bronchodilators, we'll add Symbicort, Lasix Zithromax, continue nicotine patch, IV hydration. We'll consider repeat CT of the chest with contrast, to follow-up on the previously noted bronchial and paratracheal lymph nodes noted on last CT chest from last year 2017. Anticipate further improvement, possible discharge home in the next 24 hours. I performed a history & physical examination of the patient and discussed their management with my nurse practitioner, Larissa Cortez. I reviewed the nurse practitioner's note and agree with the documented findings and plan of care. Lung sounds are positive for diffuse wheezes throughout the lung murry. The findings and the impression was discussed with the patient. I attest to the documentation by the nurse practitioner. Time with Patient: Greater than 30
--- NOTE | 2019-07-17 18:50 | CT ---
EXAMINATION TYPE: CT chest w con DATE OF EXAM: 07/17/2019 COMPARISON: 04/02/2018 HISTORY: Shortness of breath. History of COPD CT DLP: 392.8 mGycm Automated exposure control for dose reduction was used. CONTRAST: Performed with IV Contrast, patient injected with 100 mL of Isovue 300. The lungs are clear of infiltrate. There is no evidence of a pulmonary mass. There is no mediastinal adenopathy. Thoracic aorta appears intact. There is no aneurysm or dissection. There is some coronary artery calcification. There are no hilar masses. Heart size is normal. Upper abdominal soft tissues are intact. The bony thorax is intact. Sternum is intact. There is 10% wedging of T8 vertebra unchang ed. IMPRESSION: Negative CT scan of the chest. There is clearing of the patchy reticular nodular bilateral diffuse pu lmonary infiltrates compared to old exam. Normal heart. Mild atherosclerotic vascular disease.
[2019-07-17] MEDS ORDERED: IPRATROPIUM-ALBUTEROL 3 ML NEB INHALATION SCH (20:00)
[2019-07-17] MEDS: SYMBICORT 160-4.5 MCG INHALER INHALATION SCH (20:28)
[2019-07-17] MEDS ORDERED: AZITHROMYCIN 500 MG TAB PO SCH (21:00)
--- NOTE | 2019-07-17 23:50 | P.HPIM ---
History of Present Illness H&P Date: 07/17/19 Chief Complaint: shortness of breath Patient is a 48-year-old malewith a known history of COPD, ongoing nicotine addiction, osteoarthritiscame to ER with complaintsofshortness of breath worsening shortness of breath for the past few days. [place]. Since then patient has been worsening shortness of breath, ches and cough without any sputum production. Patient did have exertional dyspnea as well. Tried to use nebulizer at homebut symptoms did nimprove Patient presented to ER for further evaluation. No complaints of fever or chills. Chest x-ray showedchronicemphysematous changes without no acutepulmonary process. EKG showed normal sinus rhythm. D-dimer is not elevatedNT proBNP 147 Troponin 1 negative WBC13.5 Review of Systems Constitutional: Patient denies any fever or chills . No generalized weakness or weight loss. Abdomen: Patient denied nausea vomiting and diarrhea and abdominal pain. Cardiovascular: Patient denies any chest pain he does have short of breath no palpitations.no leg swelling. Respiratory: patient does havecough without sputum production. Positive shortness of breath Neurologic: Patient denied any numbness or tingling headache. Musculoskeletal: Patient denies any complaints of joint swelling or deformity. Skin: Negative Psychiatric: Negative Endocrine: No heat or cold intolerance. No recent weight gain. Genitourinary: No dysuria or hematuria. All other 14 point ROS negative except the above Past Medical History Past Medical History: COPD, Osteoarthritis (OA), Pneumonia Additional Past Medical History / Comment(s): Tracheobronchitis, pneumonia with sepsis, ETOH abuse with withdrawals in past (tremors/nausea), head injury with concusion years ago, arthritis in hands, nonsustained VT. History of Any Multi-Drug Resistant Organisms: None Reported Past Surgical History: No Surgical Hx Reported Past Anesthesia/Blood Transfusion Reactions: Unable to Obtain Additional Past Anesthesia/Blood Transfusion Reaction / Comment(s): Pt has never had surgery Smoking Status: Current every day smoker - Past Family History Father Family Medical History: Liver Disease Additional Family Medical History / Comment(s): Cirrhosis, ETOH abuse Mother Family Medical History: Cancer Additional Family Medical History / Comment(s): Mother of lung cancer at the age of 54yrs. She was a smoker. Medications and Allergies Home Medications Medication Instructions Recorded Confirmed Type Ipratropium-Albuterol Nebulize 3 ml INHALATION RT-Q4H PRN #60 06/04/18 07/17/19 Rx [Duoneb 0.5 mg-3 mg/3 ml Soln] ampul.neb Albuterol Sulfate [Proair Hfa] 2 puff INHALATION RT-Q4H PRN #1 04/27/19 07/17/19 Rx inhaler Allergies Allergy/AdvReac Type Severity Reaction Status Date / Time No Known Allergies Allergy Verified 07/17/19 10:49 Physical Exam Vitals: Vital Signs Temp Pulse Resp BP Pulse Ox 07/17/19 12:06 71 07/17/19 11:57 76 07/17/19 11:20 79 07/17/19 11:11 74 07/17/19 09:53 71 07/17/19 09:45 80 07/17/19 09:20 97.4 F L 69 22 148/91 95 Intake and Output 07/17/19 07/17/19 07/17/19 06:59 14:59 22:59 Other: Weight 81.647 kg 81.647 kg PHYSICAL EXAMINATION: Patient is lying in the bed comfortably, mild distress due to shortness of breath, awake alert and oriented.. HEENT: Normocephalic. Neck is supple. Pupils reactive. Nostrils clear. Oral cavity is moist. Ears reveal no drainage. Neck reveals no JVD, carotid bruits, or thyromegaly. CHEST EXAMINATION: Trachea is central. Symmetrical expansion. bilateral diminished air entry and scattered rhonchiand wheezing. CARDIAC: Normal S1, S2 with no gallops. No murmurs ABDOMEN: Soft. Bowel sounds normal. No organomegaly. No abdominal bruits. Extremities: reveal no edema. No clubbing or cyanosis Neurologically awake, alert, oriented x3 with well-coordinated movements. No f ocal deficits noted Skin: No rash or skin lesions. Psychiatric: Coperative. Nonsuicidal Musculoskeletal: No joint swelling or deformity. Normal range of motion. Results CBC & Chem 7: 07/17/19 09:37 07/17/19 09:37 Labs: Abnormal Lab Results - Last 24 Hours (Table) 07/17/19 07/17/19 Range/Units 09:37 09:37 WBC 13.5 H (3.8-10.6) k/uL Neutrophils # 9.6 H (1.3-7.7) k/uL Monocytes # 1.6 H (0-1.0) k/uL Chloride 108 H (98-107) mmol/L ALT 69 H (4-49) U/L Thrombosis Risk Factor Assmnt - DVT/VTE Prophylaxis DVT/VTE Prophylaxis: Pharmacologic Prophylaxis ordered - Choose All That Apply Any of the Below Risk Factors Present?: Yes Each Factor Represents 1 point: Abnormal pulmonary function (COPD), Age 41-60 years, Obesity (BMI >25), Serious lung disease incl. pneumonia (< 1month) Other Risk Factors: No Other congenital or acquired thrombophilia - If yes, enter type in comment: No Thrombosis Risk Factor Assessment Total Risk Factor Score: 4 Thrombosis Risk Factor Assessment Level: Moderate Risk Assessment and Plan Assessment: acute COPD exacerbation likely exacerbated by tracheobronchitis ongoing nicotine addiction. 1 pack per day osteoarthritis history of EtOH abuse with withdrawals in the past. History of head injury with concussion anxiety dVT prophylaxis with heparin subcu plan: Patient will be continued on IV steroids in the form of Solu-Medrol 60 mg every 6 hourly and duo nebs every 4 hours and antibiotics. Oxygen therapy as needed. Pulmonary was consulted for further evaluation of COPD and patient will need outpatient follow-up for pulmonary function tests. smoking cessationhas been counseled extensively. Continue with GI andDVT prophylaxis. Time with Patient: Greater than 30
[2019-07-18] MEDS: HEPARIN SODIUM,PORCINE 5,000 UNIT/ML 1 ML VIAL SQ SCH ×2 (01:11→07:50)
[2019-07-18] MEDS: methylPREDNISolone SOD SUCCI 125 MG/2 ML VIAL IV SCH ×3 (01:11→11:12)
[2019-07-18] MEDS: SODIUM CHLORIDE 0.9% 1,000 ML IV SCH ×3 (01:11→10:38)
[2019-07-18] MEDS: IPRATROPIUM-ALBUTEROL 3 ML NEB INHALATION SCH ×4 (03:09→13:03)
[2019-07-18] MEDS ORDERED: THIAMINE 100 MG TAB PO SCH (09:00)
[2019-07-18] MEDS ORDERED: NICOTINE 21MG/24HR PATCH TRANSDERM SCH (09:00)
[2019-07-18] MEDS ORDERED: MULTIVITAMINS, THERA 1 EACH TAB PO SCH (09:00)
[2019-07-18] MEDS ORDERED: FAMOTIDINE 20 MG TAB PO SCH (09:00)
[2019-07-18] MEDS: SYMBICORT 160-4.5 MCG INHALER INHALATION SCH (09:22)
[2019-07-18 09:42] LABS: Basophils % (A) 0 %; Eosinophils % (A) 0 %; HCT 41.7 % (39.0-53.0); HGB 14.1 gm/dL (13.0-17.5); Lymphocytes # (A) 0.7 k/uL (1.0-4.8); Lymphocytes % (A) 3 %; MCH 32.6 pg (25.0-35.0); MCHC 33.7 g/dL (31.0-37.0); MCV 96.7 fL (80.0-100.0); Mean Platelet Volume 8.3; Monocytes # (A) 0.6 k/uL (0-1.0); Monocytes % (A) 3 %; Neutrophils # (A) 18.3 k/uL (1.3-7.7); Neutrophils % (A) 93 %; Platelet Count 263 k/uL (150-450); RBC 4.31 m/uL (4.30-5.90); RDW 12.8 % (11.5-15.5); WBC 19.7 k/uL (3.8-10.6)
[2019-07-18 09:56] LABS: African American GFR (CKD) >90 (>60 ml/min/1.73 sqM); Anion Gap 10 mmol/L; Blood Urea Nitrogen 13 mg/dL (9-20); Calcium 9.1 mg/dL (8.4-10.2); Carbon Dioxide 22 mmol/L (22-30); Chloride 107 mmol/L (98-107); Glucose 223 mg/dL (74-99); Non-African American GFR(CKD) >90 (>60 ml/min/1.73 sqM); Potassium 4.3 mmol/L (3.5-5.1); Sodium 139 mmol/L (137-145)
[2019-07-18 11:40] LABS: Glucose,Whole Blood 123 mg/dL (75-99)
[2019-07-18] MEDS ORDERED: INSULIN ASPART (NovoLOG) 100 UNIT/ML VIAL SQ SCH (12:30)
[2019-07-18 14:07] VITALS: BP 123/71; PULSE 77; RESP 18; TEMP 97.6
--- NOTE | 2019-07-18 15:46 | P.PN ---
Subjective Progress Note Date: 07/18/19 Principal diagnosis: Dyspnea, wheezing, cough This is a 48-year-old white male, at least a [id number]-flag smoker, known history of COPD, presented the hospital for evaluation and worsening shortness of breath, nonproductive cough, wheezing, chest tightness. Patient used to follow with Dr. 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 He still actively smoking, one pack a day, he does have albuterol rescue inhaler and DuoNeb nebulized treatments at home, which he did not bring with him on a trip. Not oxygen dependent at baseline, patient is employed in construction, doing belkys. we had last saw the patient in consultation last year in May 2018 for COPD exacerbation however patient did not follow-up in the outpatient basis, during his last admission CTA chest was done showing extensive bilateral reticulonodular pulmonary infiltrates, and a few bronchial and paratracheal lymph nodes measuring up to 1 cm. on admission chest x-ray showed chronic emphysematous changes without acute pulmonary process. labs have been reviewed showing white blood cell count of 13.5, hemoglobin of 14.8, d-dimer was negative at 0.17, coagulation profile was within normal limits, his electrolytes and renal profile were unremarkable, troponin was negative 1, proBNP was 147, AST was 47, ALT was 69, alkaline phosphatase was 63.patient has been afebrile, clinically stable, he is on room air, and some wheezing and coughing, and we are seeing the patient in consultation for acute exacerbation of COPD On 07/18/2019 Patient is seen in follow-up on medical surgical floor. He is doing well, breathing easier, lung sounds reveal diminished breath sounds, No wheezing, no rales, no rhonchi, his cough is dry, he is on room air, there have been no fever or chills, hemodynamically stable, patient has been treated with IV steroids, nebulized bronchodilators and antibiotics, improved. He chest with contrast was reviewed showing normal chest, and clearing of the previously noted infiltrates on the previous CAT scan of the chest from 2018, no adenopathy Objective - Vital Signs Vital signs: Vital Signs Temp 97.6 F 07/18/19 14:06 Pulse 77 07/18/19 14:06 Resp 18 07/18/19 14:06 BP 123/71 07/18/19 14:06 Pulse Ox 96 07/18/19 14:06 Intake & Output 07/17/19 07/18/19 07/18/19 18:59 06:59 18:59 Intake Total 240 Balance 240 Weight 81.647 kg Intake: Oral 240 Other: # Voids 2 3 - Exam GENERAL EXAM: Alert, Ray pleasant, 48-year-old white on room air, with a pulse ox of 95%, comfortable in no apparent distress. Slight voice hoarseness HEAD: Normocephalic/atraumatic. EYES: Normal reaction of pupils, equal size. Conjunctiva pink, sclera white. NOSE: Clear with pink turbinates. THROAT: No erythema or exudates. NECK: No masses, no JVD, no thyroid enlargement, no adenopathy. CHEST: No chest wall deformity. Symmetrical expansion. LUNGS: Equal air entry, No rhonchi, no wheezing CVS: Regular rate and rhythm, normal S1 and S2, no gallops, no murmurs, no rubs ABDOMEN: Soft, nontender. No hepatosplenomegaly, normal bowel sounds, no guarding or rigidity. EXTREMITIES: No clubbing, no edema, no cyanosis, 2+ pulses and upper and lower extremities. MUSCULOSKELETAL: Muscle strength and tone normal. SPINE: No scoliosis or deformity SKIN: No rashes CENTRAL NERVOUS SYSTEM: Alert and oriented -3. No focal deficits, tone is normal in all 4 extremities. PSYCHIATRIC: Alert and oriented -3. Appropriate affect. Intact judgment and insight. - Labs CBC & Chem 7: 07/18/19 09:07 07/18/19 09:07 Labs: Abnormal Lab Results - Last 24 Hours (Table) 07/18/19 07/18/19 07/18/19 Range/Units 09:07 09:07 11:38 WBC 19.7 H (3.8-10.6) k/uL Neutrophils # 18.3 H (1.3-7.7) k/uL Lymphocytes # 0.7 L (1.0-4.8) k/uL Glucose 223 H (74-99) mg/dL POC Glucose (mg/dL) 123 H (75-99) mg/dL Microbiology - Last 24 Hours (Table) 07/17/19 09:36 Blood Culture - Preliminary Blood No Growth after 24 hours Assessment and Plan Plan: assessment: #1. Acute exacerbation of chronic obstructive pulmonary disease complicated by tracheobronchitis,chest x-ray has been reviewed showing no acute pulmonary process #2. Chronic and ongoing history of nicotine abuse, currently smokes one pack a day #3. History of COPD, currently not oxygen dependent #4. Generalized anxiety disorder #5. Mild voice hoarseness, CT chest with contrast on 07/17/2019 showed no masses, no adenopathy Plan: Patient is doing well, improved, signs are stable, no fever or chills, tolerating ambulation, no acute events overnight. Patient can be considered for discharge home today, he can resume his Ventolin and Symbicort, discharge planning is following, and patient will receive assistance with prescriptions. He is planning on driving back to [place] on Sunday, until then he is planning on staying with his son I performed a history & physical examination of the patient and discussed their management with my nurse practitioner, Larissa Cortez. I reviewed the nurse practitioner's note and agree with the documented findings and plan of care. Lung sounds are positive for diffuse wheezes throughout the lung murry. The findings and the impression was discussed with the patient. I attest to the documentation by the nurse practitioner. Time with Patient: Less than 30
== END 2019-07-18 16:55 | disposition home or self-care (01) | DRG 190 ==
LOC: EC 09:18 → 6NMEDSUR 12:00
PROVIDERS: ADMIT Internal Medicine; ATTEND Internal Medicine
DX: J44.1 Chronic obstructive pulmonary disease with (acute) exacerbation (principal); J80 Acute respiratory distress syndrome; I47.2 Ventricular tachycardia; F17.210 Nicotine dependence, cigarettes, uncomplicated; F41.1 Generalized anxiety disorder; Z80.1 Family history of malignant neoplasm of trachea, bronchus and lung; Z87.820 Personal history of traumatic brain injury; Z71.6 Tobacco abuse counseling; R49.0 Dysphonia; M19.90 Unspecified osteoarthritis, unspecified site; Z87.01 Personal history of pneumonia (recurrent); Z79.899 Other long term (current) drug therapy; M19.042 Primary osteoarthritis, left hand; M19.041 Primary osteoarthritis, right hand; F10.10 Alcohol abuse, uncomplicated
CPT/HCPCS: 36415; 71046; 71260; 80048; 80053; 82550; 83735; 83880; 84484; 85025; 85379; 85610; 85730; 87040; 90686; 93005; 94640; 96361; 96374; 96376; 99291